=== PATIENT | female | born 1960 | race Caucasian/White ===

== ENCOUNTER 2017-05-01 09:24 | Outpatient (CLI) | payer MEDICARE, MEDICAID ==
--- NOTE | 2017-05-01 12:41 | RAD ---
FOUR VIEWS LUMBAR SPINE SERIES: CLINICAL HISTORY: Lumbar radiculopathy. FINDINGS: There is rotation of the lateral view, which does limit assessment of alignment. There is grade 1-2 spondylolisthesis at L4-L5. Trace retrolisthesis is suggested at the T12-L1 level. No compression f racture. There is multilevel mild endplate degenerative change and mild disk space narrowing through out the lumbar spine. There is moderate disk space narrowing at the lumbosacral junction. Multileve l facet osteoarthritis is present. There is incidental note of atherosclerosis. Surgical clips are seen overlying the right pelvis. There is left convexity curvature of the lumbar spine. Translation al motion of significance not identified by flexion and extension positioning. IMPRESSION: 1. Multilevel degenerative change of the lumbar spine. There is grade 1-2 spondylolisthesis at the L4-L5 level. Trace retrolisthesis is suggested at the T12-L1 level. 2. With flexion/extension positioning, no obvious abnormal translational motion is seen. POS: HARPAL
--- NOTE | 2017-05-01 14:30 | MRI ---
MRI LUMBAR SPINE WITHOUT CONTRAST: Date: 05/01/17 Multiplanar, multisequential imaging of lumbar spine obtained. HISTORY: Low back pain. Bilateral leg pain. COMPARISON: MRI lumbar spine dated 09/02/15. FINDINGS: The lumbar vertebra maintain height. There is anterior wedging of the T10 and T11 vertebra, which mandeep ears stable from the prior study. Anterior osteophytes are seen. Mild anterolisthesis of L4-5 and L5- S1 again noted. No evidence of vertebral body edema. At T11-T12, mild disc bulge is seen, similar to the prior study. This flattens the thecal sac and res ults in mild central canal stenosis, unchanged from prior exam. At T12-L1, mild disc bulge and facet hypertroph result in mild central canal stenosis, unchanged. At L1-2, there is a broad based disc bulge. There is an annular tear with a small focal protrusion pa racentrally on the right, which is more prominent than on the prior study. This flattens the anterior thecal sac resulting in mild central canal stenosis. At L2-3, mild disc bulge flattens the thecal sac. Facet hypertrophy. Mild central canal stenosis, whi ch is exaggerated on the posterior epidural lipomatosis. At L3-4, broad based disc bulge flattens the thecal sac. Facet hypertrophy. Mild central canal steno sis. At L4-5, there is mild anterolisthesis with a broad based disc bulge which has a similar appearance t o the prior study. Bilateral foraminal stenosis due to disc bulge and facet hypertrophy. At L5-S1, there is Grade I spondylolisthesis with broad based disc bulge compressing the thecal sac. Bilateral foraminal encroachment is seen, more prominent on the right due asymmetric disc bulge into the right foramina. Findings at these levels do not appear significantly changed from the prior study. IMPRESSION: Mild anterolisthesis with diffuse disc bulge again seen at L4-5 and at L5-S1 levels. These findings d o not appear significantly changed from the exam of 09/02/15. POS: TPC
== END 2017-05-01 09:25 | disposition home or self-care (01) ==
LOC: SCSMRI 09:24
PROVIDERS: ATTEND Neurological Surgery
DX: M47.26 Other spondylosis with radiculopathy, lumbar region (principal); M51.16 Intervertebral disc disorders with radiculopathy, lumbar region; M43.16 Spondylolisthesis, lumbar region
CPT/HCPCS: 72120; 72148

== ENCOUNTER 2017-05-15 12:45 | Outpatient (CLI) | payer MEDICARE, MEDICAID ==
--- NOTE | 2017-05-15 13:27 | RAD ---
TWO VIEWS OF THE CHEST: Comparison: 10-05-15 History: Dyspnea. FINDINGS: Two views of the chest show normal sized cardiomediastinal silhouette. There is no evidence of consol idation, mass, or pleural effusion. Degenerative changes are seen in the spine. IMPRESSION: No evidence of acute cardiopulmonary disease. POS: H
== END 2017-05-15 12:46 | disposition home or self-care (01) ==
LOC: RAD 12:45
PROVIDERS: ATTEND Internal Medicine Pulmonary Disease
DX: R06.00 Dyspnea, unspecified (principal)
CPT/HCPCS: 71046

== ENCOUNTER 2017-06-05 14:00 | Inpatient (IN) | payer MEDICARE, MEDICAID ==
[2017-06-11] MEDS ORDERED: Sodium Chloride 0.9% 30 ML ONE (06:17)
[2017-06-11] MEDS ORDERED: Thrombin 5000 UNITS/5 ML VIAL ONE (06:17)
[2017-06-11] MEDS ORDERED: Bupivacaine HCl 0.5%/Epinephrine 1:200,000/PF 30 ml Vial ONE (06:17)
[2017-06-11] MEDS ORDERED: CEFAZOLIN/Water 2 GM/20 ML SYRINGE ONE (06:31)
[2017-06-11] MEDS ORDERED: Midazolam HCl 2 mg/2 ml Vial ONE (07:00)
[2017-06-11] MEDS ORDERED: HYDROmorphone 0.5 MG/0.5 ML SYRINGE ONE ×4 (07:00→13:15)
[2017-06-11] MEDS ORDERED: Rocuronium Bromide 50 MG/5 ML VIAL ONE (11:12)
[2017-06-11] MEDS ORDERED: Ketorolac Tromethamine 30 MG/ML VIAL IVP PRN (12:49)
[2017-06-11] MEDS ORDERED: Promethazine HCl 25 MG/ML VIAL SLOW IVP PRN ×2 (12:49→18:24)
[2017-06-11] MEDS ORDERED: Ondansetron HCl/PF 4 MG/2 ML Vial IVP PRN ×2 (12:49→13:00)
[2017-06-11] MEDS ORDERED: Promethazine HCl 25 MG/ML VIAL IM PRN (12:49)
[2017-06-11] MEDS ORDERED: Labetalol HCl 100 MG/20 ML VIAL ONE (12:53)
[2017-06-11] MEDS ORDERED: Zolpidem Tartrate 5 MG TAB PO PRN (13:00)
[2017-06-11] MEDS ORDERED: diphenhydrAMINE 50 MG/ML VIAL IVP PRN (13:00)
[2017-06-11] MEDS ORDERED: Cyclobenzaprine 10 MG TAB PO PRN (13:00)
[2017-06-11] MEDS ORDERED: Acetaminophen 650 MG Suppository PR PRN (13:00)
[2017-06-11] MEDS ORDERED: Bisacodyl 10 MG SUPP PR PRN (13:00)
[2017-06-11] MEDS ORDERED: Acetaminophen/Codeine 30-300mg Tablet PO PRN (13:00)
[2017-06-11] MEDS ORDERED: tiZANidine HCl 4 MG TAB PO PRN (13:00)
[2017-06-11] MEDS ORDERED: Mag-Al 1200 mg/1200 mg/30 ML UDCUP PO PRN (13:00)
[2017-06-11] MEDS ORDERED: Morphine 5 MG/ML SYRINGE SLOW IVP PRN (13:00)
[2017-06-11] MEDS ORDERED: Milk Of Magnesia 30 ML UDCUP PO PRN (13:00)
[2017-06-11] MEDS ORDERED: diphenhydrAMINE 25 MG CAP PO PRN (13:00)
[2017-06-11] MEDS ORDERED: Promethazine HCl 25 MG/ML VIAL ONE (13:06)
--- NOTE | 2017-06-11 13:31 | OP ---
DATE OF PROCEDURE: 06/11/2017 SURGEON: Fina Bradley M.D. PRINT SUPPORT SPECIALIST: None. PREOPERATIVE INDICATION: Treat pain, prevent neurological deterioration. PREOPERATIVE DIAGNOSES: Multilevel lumbar stenosis, lumbar spondylolisthesis, unstable. POSTOPERATIVE DIAGNOSES: Multilevel lumbar stenosis, lumbar spondylolisthesis, unstable. OPERATIVE PROCEDURE: Decompressive laminectomy, medial facetectomy, foraminotomy L3-L4, L4-L5, L5-S1 , transforaminal lumbar interbody arthrodesis L4-L5, L5-S1, pedicle screw and blaze instrumentation L4- L5, L5-S1 posterolateral arthrodesis L4-5, L5-S1. Local morselized autograft, morselized allograft. PREOPERATIVE MEDICATION: Ancef 2 grams IV. DRAIN NUMBER: Zero. DRAIN TYPE: None. OPERATIVE DICTATION: The patient was brought to the operating room. General endotracheal anesthesia was induced. The patient was positioned prone on the Patrick frame with appropriate padding for the chest and hips. A lateral fluoro radiograph was used to plan our incision. The lumbar skin was angelia rilely prepped and draped. We opened with a 10 blade knife and controlled bleeding with bipolar and monopolar cautery. We used monopolar cautery to dissect through subcutaneous tissues to the thoracod orsal fascia. We incised the fascia in the midline and reflected the paraspinal muscles off the spin ous process and lamina of L3, L4, L5, and the superior portion of the sacrum. A lateral fluoro radio graph confirmed the levels upon which we were operating. We then carried our dissection over the fac et joints lateral to the facet joints at L3-L4, L4-L5, and L5-S1 to identify the transverse processes of L4, L5, and S1 bilaterally and the sacral ala bilaterally. We irrigated copiously with bacitraci n irrigation and placed a self-retaining retractor. Using Adson and Kerrison rongeurs we fashioned a laminectomy from L3 to the sacrum. We widened our laminectomy defect until we were flush with the p edicles at L4, L5, and S1. We performed foraminotomies over the exiting L3, L4, L5, and S1 nerve annita ts bilaterally until a ball probe could pass through the lateral recess and out the foramen without i mpingement. We turned our attention to arthrodesis. We drilled out the facet joints at L4-5 and L5-S1 on the right side. We accessed the intervertebral space at L4-5 and L5-S1 through the foramen from the right and we removed disk contents using curette s and rongeurs. We used a bone rasp to prepare the endplates for grafting and then measured the heig ht of the interspace to 11 mm at L4-5 and 9 mm at L5-S1. The appropriately sized PEEK intervertebral grafts were brought into the field. The laminectomy bone was cleaned of all its soft tissue attachm ents carefully and morselized on the back table and then added to demineralized bone matrix as our fu kendrick substrate. This substrate was placed in the PEEK grafts and the grafts were advanced into the i nterspaces under radiographic guidance to the appropriate depth. We turned our attention to pedicle screw instrumentation. Using bony anatomic landmarks, palpation of the medial portion of the pedicles, and a lateral fluoro radiograph as our guide, we chose entry points for pedicle screws at L4, L5, and S1 bilaterally. We drilled our entry points and then used a bone awl to advance entry points through the pedicles into t he vertebral bodies. We tapped each trajectory. Using a ball probe we found that each trajectory wa s completely encased in bone. We placed 6.5 mm diameter pedicle screws at L4, L5, and S1 bilaterally . We irrigated copiously with bacitracin irrigation. We generated the 360 degree image set that our isocentric C-arm confirming adequate positioning of our pedicle screw instrumentation. We irrigated once again with bacitracin irrigation. We decorticated the transverse processes of L4-L5 and the sa cral ala bilaterally. Over the decorticated bone, we the left our demineralized bone matrix and mors elized autograft as posterolateral fusion substrate. We then brought rods into the screw heads. We tightened caps over the rods. Before final tightening, we used gentle compressive forces across each interspace to ensure that the interbody device had remained in place. Using a [id number] mechanism, we ensured adequate tightness of the caps. We irrigated the center of the wound once aga in with bacitracin irrigation. We applied vancomycin powder in the wound. We closed the wound in an atomic layers. We applied a sterile dressing. This was a clean case, no contamination.
[2017-06-11 14:18] VITALS: BMI 31.4
[2017-06-11] MEDS: Sodium Chloride 0.9% 1,000 ML IV SCH ×2 (14:41→23:18)
[2017-06-11] MEDS: CEFAZOLIN/Water 2 GM/20 ML SYRINGE SLOW IVP SCH ×2 (14:44→23:19)
[2017-06-11] MEDS: Scopolamine 1.5 mg/72 hour Patch TD SCH (14:46)
[2017-06-11] MEDS ORDERED: Glycopyrrolate 0.2 MG/ML 5 ML SYRINGE ONE (15:32)
[2017-06-11] MEDS ORDERED: Propofol 200 MG/20 ML VIAL ONE (15:32)
[2017-06-11] MEDS ORDERED: Lidocaine 1% PF 5 ML VIAL ONE (15:32)
[2017-06-11] MEDS ORDERED: Labetalol 100 MG/20 ML MDV ONE (15:32)
[2017-06-11] MEDS ORDERED: Dexamethasone 20 MG/5 ML VIAL ONE (15:32)
[2017-06-11] MEDS ORDERED: Metoclopramide HCl 10 MG/2 ML VIAL ONE (15:32)
[2017-06-11] MEDS ORDERED: PHENYLEPHRINE-NS 100 MCG/ML 10 ML SYRINGE ONE (15:32)
[2017-06-11] MEDS ORDERED: Ondansetron HCl/PF 4 MG/2 ML Vial ONE (15:32)
[2017-06-11] MEDS ORDERED: PROVENTIL INHALER 6.7 G (200 INHALATIONS) INH PRN (19:31)
[2017-06-11] MEDS ORDERED: CRANBERRY FRUIT EXTRACT PO SCH (21:00)
[2017-06-11] MEDS: Atorvastatin Calcium 20 MG TAB PO SCH (21:15)
[2017-06-11] MEDS: diphenhydrAMINE 25 MG CAP PO SCH (21:16)
[2017-06-11] MEDS: Docusate 100 MG CAP PO SCH (21:16)
[2017-06-11] MEDS: Lisinopril 2.5 MG TAB PO SCH (21:16)
[2017-06-11] MEDS: Naproxen 500 MG TAB PO SCH (21:17)
[2017-06-11] MEDS: Pregabalin 50 MG CAP PO SCH (21:17)
[2017-06-11] MEDS: Acetaminophen 325 MG TAB PO PRN (21:18)
[2017-06-11] MEDS: Albuterol Sulfate 2.5 mg/0.5 ml Neb NEB SCH (21:56)
[2017-06-11] MEDS: traMADol HCl 50 MG TAB PO PRN (23:32)
[2017-06-11] MEDS: ALPRAZolam 0.5 MG TAB PO PRN (23:32)
[2017-06-12] MEDS: Acetaminophen 325 MG TAB PO PRN (04:23)
[2017-06-12] MEDS: CEFAZOLIN/Water 2 GM/20 ML SYRINGE SLOW IVP SCH ×3 (06:05→20:43)
[2017-06-12 06:12] LABS: #Lymphocytes 2.1 thou/uL (1.20-3.40); #Monocytes 0.6 thou/uL (0.11-0.59); #Neutrophils 5.3 thou/uL (1.40-6.50); %Basophils 0.2 % (0.0-1.0); %Eosinophils 0.1 % (0.0-10.0); %Monocytes 7.7 % (0.0-10.0); Hemoglobin 9.8 g/dL (12.0-16.0); Mean Corpuscular HGB CONC 33.8 g/dL (32.0-36.0); Mean Corpuscular Hemoglobin 34.3 pg (27.0-31.0); Mean Platelet Volume 8.3 fL (7.4-10.4); Platelet Count 302 thou/uL (130-400); RBC Distribution Width 11.1 % (11.5-14.5); Red Blood Cell (RBC) Count 2.87 mill/uL (4.20-5.40); White Blood Cell (WBC) Count 8.1 thou/uL (4.8-10.8)
[2017-06-12] MEDS: Albuterol Sulfate 2.5 mg/0.5 ml Neb NEB SCH ×3 (06:25→22:55)
[2017-06-12] MEDS: Mometasone/Formoterol 120 PUFF INHALER INH SCH ×2 (06:28→19:37)
--- NOTE | 2017-06-12 07:47 | PRG ---
DATE OF SERVICE: 06/12/2017 Ms. Nassar is 1 day out from decompression fusion lumbar spine. She complains of right thigh pain an d some bruising on her chest. Overnight, her T-max was 100.9 degrees Fahrenheit. I do not find any new neurological deficits in the lower extremities. She has good sensation and motor strength throug hout. There is tenderness over the anterior iliac crest and upper lateral quadriceps muscle and down the anterior portion of the thigh on the right. This is focal tenderness and exacerbated by deep pa lpation. Her incision has some serosanguineous drainage mixed with some of the antibiotic irrigation , it is not frida blood and she is having no headaches. My plan today is that Ms. Nassar is seen by our colleagues in Internal Medicine group. She has lung disease and coronary artery disease. We will continue to address her bandage while it is draining, I will continue antibiotic therapy IV until there is no drainage at all. I will ask physical therapy to start moving her around. The thigh pain and chest pain is from positioning on the operative table over the hip pads and chest pads. The area of the pain in the anterior thigh is not in any of the d ermatomes for which we decompressed the nerves and therefore, I think is unrelated to the operative p ortion of the procedure, but rather related to positioning. Physical therapy should start moving her around, she needs to ambulate at least 5 times a day. Voldy ne would be helpful in clearing out her lungs. She is going to need some significant cheerleading to mobilize. She is quite anxious about things, in general.
[2017-06-12] MEDS ORDERED: CEFAZOLIN/Water 2 GM/20 ML SYRINGE SLOW IVP SCH (08:30)
[2017-06-12] MEDS ORDERED: BIFIDOBACTERIUM PO SCH (09:00)
[2017-06-12] MEDS ORDERED: Nitroglycerin 0.2mg/Hour PATCH TOP SCH (09:00)
[2017-06-12] MEDS ORDERED: Artificial Tear Sol 15 ML BOT EA EYE PRN (09:22)
[2017-06-12] MEDS ORDERED: Loperamide HCl 2 MG CAP PO PRN (09:22)
[2017-06-12] MEDS ORDERED: hydrALAZINE 20 MG/ML VIAL SLOW IVP PRN (09:22)
[2017-06-12] MEDS ORDERED: Eucerin (Mineral Oil/Petrolatum,White) 30 gm Jar TOP PRN (09:22)
[2017-06-12] MEDS ORDERED: Chloraseptic Spray 180 ml Bottle PO PRN (09:22)
[2017-06-12] MEDS ORDERED: Diabetic Tussin 200 MG/10 ML UDCUP PO PRN (09:22)
[2017-06-12] MEDS: Cyanocobalamin (Vitamin B-12) 1,000 MCG TAB PO SCH (09:58)
[2017-06-12] MEDS: Famotidine 20 MG TAB PO SCH (09:58)
[2017-06-12] MEDS: Magnesium Oxide 250 MG TAB PO SCH (09:58)
[2017-06-12] MEDS: Oxybutynin ER 5 MG TAB PO SCH (09:59)
[2017-06-12] MEDS: Pregabalin 50 MG CAP PO SCH ×3 (10:07→20:43)
[2017-06-12] MEDS: Metoprolol Tartrate 25 MG TAB PO SCH (10:08)
[2017-06-12] MEDS: Multivitamin W/ Minerals 1 TAB PO SCH (10:11)
[2017-06-12] MEDS: Calcium Carbonate + Vit D 1 TAB PO SCH (10:11)
--- NOTE | 2017-06-12 10:20 | PDOC.PN ---
- Subjective Encounter Start Date: 06/12/17 Encounter Start Time: 09:00 -: old records requested/rev Patient seen and examined. No new complaints. No overnight events pt has right thigh to knee pain, sleeps on right side, surgical site with dressing has tachycardia and low grade fever - Objective MAR Reviewed: Yes Vital Signs & Weight: Vital Signs (12 hours) Temp Pulse Resp BP Pulse Ox 06/12/17 07:39 98.5 F 114 H 16 120/62 94 L 06/12/17 06:41 98.2 F 102 H 06/12/17 06:25 125 H 20 93 L 06/12/17 04:00 100.9 F H 109 H 22 H 122/66 98 06/12/17 00:00 98.6 F 124 H 22 H 145/87 H 94 L Weight Admit Weight 168 lb Weight 171 lb 8 oz I&O: 06/11/17 06/12/17 06/13/17 06:59 06:59 06:59 Intake Total 888 Balance 888 Result Diagrams: 06/12/17 05:18 Radiology Reviewed by me: Yes Phys Exam - Physical Examination Constitutional: NAD HEENT: PERRLA, moist MMs, sclera anicteric Neck: no JVD, supple Respiratory: no wheezing, no rales, no rhonchi Cardiovascular: RRR, no significant murmur, no rub Gastrointestinal: soft, non-tender, no distention, positive bowel sounds Musculoskeletal: no edema, pulses present surigcal site with dressing on back Neurological: non-focal, normal sensation Lymphatic: no nodes Psychiatric: normal affect, A&O x 3 Skin: no rash, normal turgor Dx/Plan (1) Status post lumbar laminectomy Code(s): Z98.890 - OTHER SPECIFIED POSTPROCEDURAL STATES Status: Acute (2) Anxiety and depression Code(s): F41.8 - OTHER SPECIFIED ANXIETY DISORDERS Status: Chronic (3) Asthma Code(s): J45.909 - UNSPECIFIED ASTHMA, UNCOMPLICATED Status: Chronic (4) CAD (coronary artery disease) Code(s): I25.10 - ATHSCL HEART DISEASE OF [place] CORONARY ARTERY W/O ANG PCTRS Status: Chronic (5) Dyslipidemia Code(s): E78.5 - HYPERLIPIDEMIA, UNSPECIFIED Status: Chronic (6) GERD (gastroesophageal reflux disease) Code(s): K21.9 - GASTRO-ESOPHAGEAL REFLUX DISEASE WITHOUT ESOPHAGITIS Status: Chronic (7) Hypertension Code(s): I10 - ESSENTIAL (PRIMARY) HYPERTENSION Status: Chronic (8) Macrocytic anemia Code(s): D53.9 - NUTRITIONAL ANEMIA, UNSPECIFIED Status: Chronic (9) Obesity (BMI 30.0-34.9) Code(s): E66.9 - OBESITY, UNSPECIFIED Status: Chronic (10) RADHA on CPAP Code(s): G47.33 - OBSTRUCTIVE SLEEP APNEA (ADULT) (PEDIATRIC); Z99.89 - DEPENDENCE ON OTHER ENABLING MACHINES AND DEVICES Status: Chronic - Plan cont current plan of care, PT/OT, DVT proph w/SCDs * medication reviewed as below * symptomatic treatment * home medication restarted * albuterol q 4 hourly PRB * send UA and urine culture * continue PT * pain control. Review of Systems - Review of Systems Constitutional: fever. negative: chills, sweats, weakness, malaise, other Eyes: negative: Pain, Vision Change, Conjunctivae Inflammation, Eyelid Inflammation, Redness, Other ENT: negative: Ear Pain, Ear Discharge, Nose Pain, Nose Discharge, Nose Congestion, Mouth Pain, Mouth Swelling, Throat Pain, Throat Swelling, Other Respiratory: Cough. negative: Dry, Shortness of Breath, Hemoptysis, SOB with Excertion, Pleuritic Pain, Sputum, Wheezing Cardiovascular: negative: chest pain, palpitations, orthopnea, paroxysmal nocturnal dyspnea, edema, light headedness, other Gastrointestinal: negative: Nausea, Vomiting, Abdominal Pain, Diarrhea, Constipation, Melena, Hematochezia, Other Genitourinary: negative: Dysuria, Frequency, Incontinence, Hematuria, Retention , Other Musculoskeletal: Back Pain. negative: Neck Pain, Shoulder Pain, Arm Pain, Hand Pain, Leg Pain, Foot Pain, Other - Medications/Allergies Allergies/Adverse Reactions: Allergies Allergy/AdvReac Type Severity Reaction Status Date / Time No Known Allergies Allergy Verified 06/11/17 14:30 Medications: Current Medications Acetaminophen (Tylenol) 650 mg PO Q4H PRN PRN Reason: Headache/Fever or Pain Last Admin: 06/12/17 04:23 Dose: 650 mg Acetaminophen (Tylenol) 650 mg NE Q4H PRN PRN Reason: Headache/Fever or Pain Acetaminophen/Codeine Phosphate (Tylenol #3) 2 tab PO Q3H PRN PRN Reason: Moderate Pain (4-6) Al Hydroxide/Mg Hydroxide (Maalox) 30 ml PO Q4H PRN PRN Reason: Indigestion Albuterol Sulfate (Proventil Hfa) 1 puff INH Q4H PRN PRN Reason: SOB &/or Wheezing Albuterol Sulfate (Ventolin) 2.5 mg NEB [id number] [facility] Last Admin: 06/12/17 06:25 Dose: 2.5 mg Alprazolam (Xanax) 0.5 mg PO BID PRN PRN Reason: Anxiety Last Admin: 06/11/17 23:32 Dose: 0.5 mg Artificial Tears (Tears Renewed 15ml Bottle) 0 drop EA EYE PRN PRN PRN Reason: Dry Eyes Atorvastatin Calcium (Lipitor) 20 mg PO [facility] Last Admin: 06/11/17 21:15 Dose: 20 mg Bisacodyl (Dulcolax) 10 mg NE Q12H PRN PRN Reason: Constipation Calcium/Vitamin D (Caltrate 600 + Vit D) 1 tab PO DAILY [facility] Last Admin: 06/12/17 10:11 Dose: Not Given Cefazolin Sodium (Ancef) 2 gm SLOW IVP Q8H [facility] Cyanocobalamin (Vitamin B-12) 1,000 mcg PO DAILY [facility] Last Admin: 06/12/17 09:58 Dose: 1,000 mcg Cyclobenzaprine HCl (Flexeril) 10 mg PO Q8H PRN PRN Reason: Muscle Spasm Diphenhydramine HCl (Benadryl) 25 mg IVP Q6H PRN PRN Reason: Itching Diphenhydramine HCl (Benadryl) 25 mg PO Q6H PRN PRN Reason: Itching Diphenhydramine HCl (Benadryl) 25 mg PO [facility] Last Admin: 06/11/17 21:16 Dose: 25 mg Docusate Sodium (Colace) 200 mg PO HS [facility] Last Admin: 06/11/17 21:16 Dose: 200 mg [facility]cid) [facility] Last Admin: 06/12/17 09:58 Dose: 20 mg Guaifenesin (Robitussin Sf) 200 mg PO Q4H PRN PRN Reason: Cough Hydralazine HCl (Apresoline) 10 mg SLOW IVP Q4H PRN PRN Reason: Systolic BP > 180 Sodium Chloride (Normal Saline 0.9%) 1,000 mls @ 75 mls/hr IV .[id number] [facility] Last Admin: 06/11/17 23:18 Dose: 1,000 mls Iron/Minerals/Multivitamins (Theragran M) 1 tab PO DAILY [facility] Last Admin: 06/12/17 10:11 Dose: Not Given Isosorbide Mononitrate (Imdur Er) [facility] Last Admin: 06/12/17 09:59 Dose: 90 mg Lisinopril (Zestril) 2.5 mg PO HS [facility] Last Admin: 06/11/17 21:16 Dose: 2.5 mg Loperamide HCl (Imodium) 2 mg PO PRN PRN PRN Reason: Diarrhea/Loose Stools Magnesium Hydroxide (Milk Of Magnesium) 30 ml PO Q12H PRN PRN Reason: Constipation Magnesium Oxide (Magnesium Oxide) 250 mg PO DAILY [facility] Last Admin: 06/12/17 09:58 Dose: 250 mg Metoprolol Tartrate (Lopressor) 50 mg PO QAM [facility] Last Admin: 06/12/17 10:08 Dose: 50 mg Mineral Oil/White Petrolatum (Eucerin Cream) 0 gm TOP BIDPRN PRN PRN Reason: Dry Skin Mometasone Furoate/Formoterol Fumar (Dulera 100 Mcg/5 Mcg Inhaler) 2 puff INH BID-RT [facility] Last Admin: 06/12/17 06:28 Dose: 2 puff Morphine Sulfate (Morphine) 4 mg SLOW IVP Q1H PRN PRN Reason: Severe Breakthrough Pain Naproxen (Naprosyn) 250 mg PO HS [facility] Last Admin: 06/11/17 21:17 Dose: 250 mg Nitroglycerin (Nitro-Dur Patch) 0.2 mg TOP DAILY [facility] Ondansetron HCl (Zofran) 4 mg IVP DAILYPRN PRN PRN Reason: Nausea Last Admin: 06/11/17 14:49 Dose: 4 mg Ondansetron HCl (Zofran) 4 mg SLOW IVP Q6H PRN PRN Reason: Nausea/Vomiting Oxybutynin Chloride (Ditropan Xl) 10 mg PO DAILY [facility] Last Admin: 02/28/18 09:59 Dose: 10 mg Pantoprazole Sodium (Protonix) 40 mg PO 2100 [facility] Last Admin: 06/11/17 21:17 Dose: 40 mg Phenol (Chloraseptic Cypress 180 Ml Bot) 0 ml PO PRN PRN PRN Reason: Sore Throat Pregabalin (Lyrica) 50 mg PO TID [facility] Last Admin: 06/12/17 10:07 Dose: Not Given Promethazine HCl (Phenergan) 12.5 mg SLOW IVP Q8H PRN PRN Reason: Nausea/Vomiting Ranolazine (Ranexa) 500 mg PO BID [facility] Last Admin: 06/12/17 09:58 Dose: 500 mg Scopolamine (Transderm Scop) 1.5 mg TD Q3D [facility] Last Admin: 06/11/17 14:46 Dose: 1.5 mg Sodium Chloride (Flush - Normal Saline) 10 ml IVF PRN PRN PRN Reason: Saline Flush Tizanidine HCl (Zanaflex) 4 mg PO Q6H PRN PRN Reason: Muscle Spasm Tramadol HCl (Ultram) 50 mg PO Q6H PRN PRN Reason: Mild Pain (1-3) Last Admin: 06/11/17 23:32 Dose: 50 mg Zolpidem Tartrate (Ambien) 5 mg PO HSPRN PRN PRN Reason: Insomnia History of Present Illnes - History of Present Illness Reason for Visit: lumbar laminectomy History of Present Illness: admitted for lumbar laminectomy consulted for medical management feels sore throat and some wheezing - Past Medical History Cardiac: CAD, HTN, Hyperlipidemia Pulmonary: Asthma Gastrointestinal: GERD Heme/Onc: Anemia NOS Psych: Anxiety, Depression Musculoskeletal: Chronic low back pain - Past Surgical History Past Surgical History: Appendectomy, (lumpectomy, cardiac cath) - Past Family History Family History: None - Past Social History Smoke: No Alcohol: None Drugs: None Lives: With Family Domestic Violence: Negative
[2017-06-12 11:44] LABS: Bilirubin Negative (Negative); Blood, Urine Negative (Negative); Clarity CLEAR (Clear); Glucose, Urine (Dipstick) Negative (Negative); Leukocyte Negative (Negative); Nitrite Negative (Negative); Protein, Urine (Dipstick) Negative (Neg-Trace); Specific Gravity, Urine 1.009 (1.002-1.036); Urobilinogen 0.2 mg/dL (0.2-1.0)
[2017-06-12 11:45] LABS: Bacteria/HPF None Seen HPF (None Seen); Hyaline Casts/LPF 0-3 HYALINE CAST LPF (0-3 Hyaline); RBC/HPF 0-3 HPF (0-3); Squamous Epithelial None Seen HPF (0-3); WBC/HPF 0-3 HPF (0-3)
[2017-06-12] MEDS: ALPRAZolam 0.5 MG TAB PO PRN (11:50)
[2017-06-12] MEDS: traMADol HCl 50 MG TAB PO PRN (11:50)
[2017-06-12] MEDS: Ondansetron HCl/PF 4 MG/2 ML Vial SLOW IVP PRN (12:01)
[2017-06-12] MEDS: Albuterol Sulfate 2.5 mg/3 ml Neb IPPB PRN ×2 (13:57→22:53)
[2017-06-12] MEDS: Sodium Chloride 0.9% 1,000 ML IV SCH (16:23)
[2017-06-12] MEDS: diphenhydrAMINE 25 MG CAP PO SCH (20:43)
[2017-06-12] MEDS: Lisinopril 2.5 MG TAB PO SCH (20:44)
[2017-06-12] MEDS: Docusate 100 MG CAP PO SCH (20:44)
[2017-06-12] MEDS: Atorvastatin Calcium 20 MG TAB PO SCH (20:44)
[2017-06-12] MEDS: Naproxen 500 MG TAB PO SCH (20:48)
[2017-06-13] MEDS: Sodium Chloride 0.9% 1,000 ML IV SCH ×2 (04:01→19:00)
[2017-06-13] MEDS: CEFAZOLIN/Water 2 GM/20 ML SYRINGE SLOW IVP SCH ×3 (04:02→21:06)
[2017-06-13] MEDS: Ondansetron HCl/PF 4 MG/2 ML Vial SLOW IVP PRN (04:04)
[2017-06-13] MEDS ORDERED: Ondansetron ODT 8 MG TAB SL PRN (07:04)
--- NOTE | 2017-06-13 07:15 | PRG ---
DATE OF SERVICE: 06/13/2017 Ms. Nassar is 2 days out from decompression fusion lumbar spine. Yesterday, she was able to get up m ultiple times to get to the bathroom and back. She wears a brace when she is up and moving. She had some continued drainage which seems to be slowing, according to the patient. The pain from position ing on the right thigh is easing off quite a bit. It is not gone, but it is much better than it was. Physical therapy did not get her up in the hallway yet. I do not find any new deficits on neurological examination. I am not surprised to see the pain getti ng better already as it was from positioning on the Patrick frame. Ms. Nassar needs aggressive physical therapy. If she does not look safe for activities of daily edmar ng at home today we can make a transfer to inpatient rehabilitation tomorrow.
[2017-06-13] MEDS: Albuterol Sulfate 2.5 mg/3 ml Neb IPPB PRN ×2 (09:21→15:24)
[2017-06-13] MEDS: Pregabalin 50 MG CAP PO SCH ×3 (09:35→21:12)
[2017-06-13] MEDS: Cyanocobalamin (Vitamin B-12) 1,000 MCG TAB PO SCH (09:36)
[2017-06-13] MEDS: Metoprolol Tartrate 25 MG TAB PO SCH (09:36)
[2017-06-13] MEDS: Famotidine 20 MG TAB PO SCH (09:37)
[2017-06-13] MEDS: Mometasone/Formoterol 120 PUFF INHALER INH SCH ×2 (09:38→19:26)
[2017-06-13] MEDS: Oxybutynin ER 5 MG TAB PO SCH (09:41)
[2017-06-13] MEDS: Calcium Carbonate + Vit D 1 TAB PO SCH (09:42)
[2017-06-13] MEDS: Multivitamin W/ Minerals 1 TAB PO SCH (09:42)
--- NOTE | 2017-06-13 09:47 | PDOC.PN ---
- Subjective Encounter Start Date: 06/13/17 Encounter Start Time: 08:20 pt has nausea, no vomiting, feels weak, and feels like she will need rehab - Objective MAR Reviewed: Yes Vital Signs & Weight: Vital Signs (12 hours) Temp Pulse Resp BP Pulse Ox 06/13/17 09:38 105 H 20 95 06/13/17 09:21 105 H 20 95 06/13/17 08:00 98.4 F 107 H 16 94 L 06/13/17 07:24 98.4 F 107 H 16 134/82 94 L 06/12/17 22:55 111 H 18 95 Weight Admit Weight 168 lb Weight 171 lb 8 oz I&O: 06/12/17 06/13/17 06/14/17 06:59 06:59 06:59 Intake Total 888 3584 180 Balance 888 3584 180 Result Diagrams: 06/12/17 05:18 Phys Exam - Physical Examination Constitutional: NAD HEENT: PERRLA, moist MMs, sclera anicteric Neck: no JVD, supple Respiratory: no wheezing, no rales, no rhonchi Cardiovascular: RRR, no significant murmur, no rub Gastrointestinal: soft, non-tender, no distention, positive bowel sounds Musculoskeletal: no edema, pulses present Neurological: non-focal, normal sensation, moves all 4 limbs Psychiatric: normal affect, A&O x 3 Skin: no rash, normal turgor Dx/Plan (1) Status post lumbar laminectomy Code(s): Z98.890 - OTHER SPECIFIED POSTPROCEDURAL STATES Status: Acute (2) Anxiety and depression Code(s): F41.8 - OTHER SPECIFIED ANXIETY DISORDERS Status: Chronic (3) Asthma Code(s): J45.909 - UNSPECIFIED ASTHMA, UNCOMPLICATED Status: Chronic (4) CAD (coronary artery disease) Code(s): I25.10 - ATHSCL HEART DISEASE OF [place] CORONARY ARTERY W/O ANG PCTRS Status: Chronic (5) Dyslipidemia Code(s): E78.5 - HYPERLIPIDEMIA, UNSPECIFIED Status: Chronic (6) GERD (gastroesophageal reflux disease) Code(s): K21.9 - GASTRO-ESOPHAGEAL REFLUX DISEASE WITHOUT ESOPHAGITIS Status: Chronic (7) Hypertension Code(s): I10 - ESSENTIAL (PRIMARY) HYPERTENSION Status: Chronic (8) Macrocytic anemia Code(s): D53.9 - NUTRITIONAL ANEMIA, UNSPECIFIED Status: Chronic (9) Obesity (BMI 30.0-34.9) Code(s): E66.9 - OBESITY, UNSPECIFIED Status: Chronic (10) RADHA on CPAP Code(s): G47.33 - OBSTRUCTIVE SLEEP APNEA (ADULT) (PEDIATRIC); Z99.89 - DEPENDENCE ON OTHER ENABLING MACHINES AND DEVICES Status: Chronic - Plan cont current plan of care, PT/OT, social service manager * continue PT * pain controlled * medication reviewed as below * symptomatic treatment * rehab screening. Review of Systems - Review of Systems Constitutional: negative: fever, chills, sweats, weakness, malaise, other Eyes: negative: Pain, Vision Change, Conjunctivae Inflammation, Eyelid Inflammation, Redness, Other ENT: negative: Ear Pain, Ear Discharge, Nose Pain, Nose Discharge, Nose Congestion, Mouth Pain, Mouth Swelling, Throat Pain, Throat Swelling, Other Respiratory: negative: Cough, Dry, Shortness of Breath, Hemoptysis, SOB with Excertion, Pleuritic Pain, Sputum, Wheezing Cardiovascular: negative: chest pain, palpitations, orthopnea, paroxysmal nocturnal dyspnea, edema, light headedness, other Gastrointestinal: Nausea. negative: Vomiting, Abdominal Pain, Diarrhea, Constipation, Melena, Hematochezia, Other Genitourinary: negative: Dysuria, Frequency, Incontinence, Hematuria, Retention , Other Musculoskeletal: Back Pain. negative: Neck Pain, Shoulder Pain, Arm Pain, Hand Pain, Leg Pain, Foot Pain, Other - Medications/Allergies Allergies/Adverse Reactions: Allergies Allergy/AdvReac Type Severity Reaction Status Date / Time No Known Allergies Allergy Verified 06/11/17 14:30 Medications: Current Medications Acetaminophen (Tylenol) 650 mg PO Q4H PRN PRN Reason: Headache/Fever or Pain Last Admin: 06/12/17 04:23 Dose: 650 mg Acetaminophen (Tylenol) 650 mg [place] Q4H PRN PRN Reason: Headache/Fever or Pain Acetaminophen/Codeine Phosphate (Tylenol #3) 2 tab PO Q3H PRN PRN Reason: Moderate Pain (4-6) Al Hydroxide/Mg Hydroxide (Maalox) 30 ml PO Q4H PRN PRN Reason: Indigestion Albuterol Sulfate (Proventil Hfa) 1 puff INH Q4H PRN PRN Reason: SOB &/or Wheezing Albuterol Sulfate (Ventolin) 2.5 mg NEB [id number] [facility] Last Admin: 06/12/17 22:55 Dose: 2.5 mg Albuterol Sulfate (Ventolin) 2.5 mg IPPB [id number] PRN PRN Reason: Wheezing Last Admin: 06/13/17 09:21 Dose: 2.5 mg Alprazolam (Xanax) 0.5 mg PO BID PRN PRN Reason: Anxiety Last Admin: 06/12/17 11:50 Dose: 0.5 mg Artificial Tears (Tears Renewed 15ml Bottle) 0 drop EA EYE PRN PRN PRN Reason: Dry Eyes Atorvastatin Calcium (Lipitor) 20 mg PO HS [facility] Last Admin: 06/12/17 20:44 Dose: 20 mg Bisacodyl (Dulcolax) 10 mg [place] Q12H PRN PRN Reason: Constipation Calcium/Vitamin D (Caltrate 600 + Vit D) 1 tab PO DAILY [facility] Last Admin: 06/13/17 09:42 Dose: Not Given Cefazolin Sodium (Ancef) 2 gm SLOW IVP 0400,1200,2000 [facility] Last Admin: 06/13/17 04:02 Dose: 2 gm Cyanocobalamin (Vitamin B-12) 1,000 mcg PO DAILY [facility] Last Admin: 06/13/17 09:36 Dose: 1,000 mcg Cyclobenzaprine HCl (Flexeril) 10 mg PO Q8H PRN PRN Reason: Muscle Spasm Diphenhydramine HCl (Benadryl) 25 mg IVP Q6H PRN PRN Reason: Itching Diphenhydramine HCl (Benadryl) 25 mg PO Q6H PRN PRN Reason: Itching Diphenhydramine HCl (Benadryl) 25 mg PO HS [facility] Last Admin: 06/12/17 20:43 Dose: 25 mg Docusate Sodium (Colace) 200 mg PO HS [facility] Last Admin: 06/12/17 20:44 Dose: 200 mg Famotidine (Pepcid) 20 mg PO QAM [facility] Last Admin: 06/13/17 09:37 Dose: 20 mg Guaifenesin (Robitussin Sf) 200 mg PO Q4H PRN PRN Reason: Cough Hydralazine HCl (Apresoline) 10 mg SLOW IVP Q4H PRN PRN Reason: Systolic BP > 180 Sodium Chloride (Normal Saline 0.9%) 1,000 mls @ 75 mls/hr IV .[id number] [facility] Last Admin: 06/13/17 04:01 Dose: 1,000 mls Iron/Minerals/Multivitamins (Theragran M) 1 tab PO DAILY [facility] Last Admin: 06/13/17 09:42 Dose: Not Given Isosorbide [facility]it[facility] (Imdur Er) [facility] [place] Admin: 06/13/17 09:35 Dose: 90 mg Lisinopril (Zestril) 2.5 mg PO [facility] Last Admin: 06/12/17 20:44 Dose: 2.5 mg Loperamide HCl (Imodium) 2 mg PO PRN PRN PRN Reason: Diarrhea/Loose Stools Magnesium Hydroxide (Milk Of Magnesium) 30 ml PO Q12H PRN PRN Reason: Constipation Magnesium Oxide (Magnesium Oxide) 250 mg PO DAILY [facility] Last Admin: 06/12/17 09:58 Dose: 250 mg Metoprolol Tartrate (Lopressor) [facility] [place] Admin: 06/13/17 09:36 Dose: 50 mg Mineral Oil/White Petrolatum (Eucerin Cream) 0 gm TOP BIDPRN PRN PRN Reason: Dry Skin Mometasone Furoate/Formoterol Fumar (Dulera 100 Mcg/5 Mcg Inhaler) 2 puff INH BID-RT [facility] Last Admin: 06/13/17 09:38 Dose: 2 puff Morphine Sulfate (Morphine) 4 mg SLOW IVP Q1H PRN PRN Reason: Severe Breakthrough Pain Naproxen (Naprosyn) 250 mg PO [facility] Last Admin: 06/12/17 20:48 Dose: 250 mg Nitroglycerin (Nitro-Dur Patch) 0.2 mg TOP DAILY [facility] Ondansetron HCl (Zofran) 4 mg IVP DAILYPRN PRN PRN Reason: Nausea Last Admin: 06/11/17 14:49 Dose: 4 mg Ondansetron HCl (Zofran) 4 mg SLOW IVP Q6H PRN PRN Reason: Nausea/Vomiting Last Admin: 06/13/17 04:04 Dose: 4 mg Ondansetron HCl (Zofran Odt) 4 mg SL QIDPRN PRN PRN Reason: Nausea/Vomiting Oxybutynin Chloride (Ditropan Xl) 10 mg PO DAILY [facility] Last Admin: 06/13/17 09:41 Dose: 10 mg Pantoprazole Sodium (Protonix) 40 mg PO 2100 [facility] Last Admin: 06/12/17 20:44 Dose: 40 mg Phenol (Chloraseptic [place] 180 Ml Bot) 0 ml PO PRN PRN PRN Reason: Sore Throat Pregabalin (Lyrica) 50 mg PO TID [facility] Last Admin: 06/13/17 09:35 Dose: 50 mg Promethazine HCl (Phenergan) 12.5 mg SLOW IVP Q8H PRN PRN Reason: Nausea/Vomiting Ranolazine (Ranexa) 500 mg PO BID [facility] Last Admin: 06/13/17 09:37 Dose: 500 mg Scopolamine (Transderm Scop) 1.5 mg TD Q3D [facility] Last Admin: 06/11/17 14:46 Dose: 1.5 mg Sodium Chloride (Flush - Normal Saline) 10 ml IVF PRN PRN PRN Reason: Saline Flush Tizanidine HCl (Zanaflex) 4 mg PO Q6H PRN PRN Reason: Muscle Spasm Tramadol HCl (Ultram) 50 mg PO Q6H PRN PRN Reason: Mild Pain (1-3) Last Admin: 06/12/17 11:50 Dose: 50 mg Zolpidem Tartrate (Ambien) 5 mg PO HSPRN PRN PRN Reason: Insomnia Last Admin: 06/12/17 20:44 Dose: 5 mg
[2017-06-13] MEDS: Magnesium Oxide 250 MG TAB PO SCH ×2 (11:54→12:04)
[2017-06-13] MEDS: Albuterol Sulfate 2.5 mg/0.5 ml Neb NEB SCH ×3 (15:13→22:25)
[2017-06-13] MEDS ORDERED: PROVENTIL INHALER 6.7 G (200 INHALATIONS) INH PRN (16:43)
[2017-06-13] MEDS ORDERED: Albuterol Sulfate 2.5 mg/3 ml Neb NEB SCH (16:45)
[2017-06-13] MEDS ORDERED: Non-Formulary Item 1 EACH (Omeprazole [Omeprazole] 20 MG) PO SCH (21:00)
[2017-06-13] MEDS ORDERED: Lisinopril 2.5 MG TAB PO SCH (21:00)
[2017-06-13] MEDS ORDERED: PREGABALIN 50 MG PO SCH (21:00)
[2017-06-13] MEDS ORDERED: (Cranberry Fruit Extract [Cranberry] 500 MG) PO SCH (21:00)
[2017-06-13] MEDS ORDERED: Atorvastatin Calcium 20 MG TAB PO SCH (21:00)
[2017-06-13] MEDS ORDERED: Docusate Sodium 100 MG/10 ML UDCUP PO SCH (21:00)
[2017-06-13] MEDS: Naproxen 500 MG TAB PO SCH (21:07)
[2017-06-13] MEDS: Atorvastatin Calcium 20 MG TAB PO SCH (21:10)
[2017-06-13] MEDS: Lisinopril 2.5 MG TAB PO SCH (21:10)
[2017-06-13] MEDS: diphenhydrAMINE 25 MG CAP PO SCH (21:11)
[2017-06-13] MEDS: ALPRAZolam 0.5 MG TAB PO SCH (21:11)
[2017-06-13] MEDS: Docusate 100 MG CAP PO SCH (21:12)
[2017-06-14] MEDS: CEFAZOLIN/Water 2 GM/20 ML SYRINGE SLOW IVP SCH ×2 (04:55→12:05)
[2017-06-14] MEDS: Sodium Chloride 0.9% 1,000 ML IV SCH ×2 (05:02→08:31)
--- NOTE | 2017-06-14 06:59 | PRG ---
DATE OF SERVICE: 06/14/2017 Ms. Nassar is 2 days out from decompression fusion lumbar spine. She continues to have some watery d rainage from her incision. There is no evidence of infection. She has no headache. The right thigh pain she had from positioning on the operative table is much better now than it was after surgery. She is beginning to mobilize without therapy and she has been accepted to inpatient rehabilitation. On examination Ms. Nassar has no new neurological deficit. Ms. Nassar is ready for discharge. I will continue antibiotic therapy until the drainage stops. Thi s most likely watery tissue fluid in combination with some of the antibiotic irrigant left behind and perhaps some fluid generated by leaving vancomycin powder in the wound. She has no headache whatsoe theresa in the standing position and the likelihood of spinal fluid drainage is exceptionally low.
[2017-06-14] MEDS: Pregabalin 50 MG CAP PO SCH (08:26)
[2017-06-14] MEDS: Metoprolol Tartrate 25 MG TAB PO SCH (08:26)
[2017-06-14] MEDS: ALPRAZolam 0.5 MG TAB PO SCH (08:27)
[2017-06-14] MEDS: Famotidine 20 MG TAB PO SCH (08:27)
[2017-06-14] MEDS: Cyanocobalamin (Vitamin B-12) 1,000 MCG TAB PO SCH (08:28)
[2017-06-14] MEDS: Calcium Carbonate + Vit D 1 TAB PO SCH (08:29)
[2017-06-14] MEDS: Magnesium Oxide 250 MG TAB PO SCH (08:29)
[2017-06-14] MEDS: Multivitamin W/ Minerals 1 TAB PO SCH (08:30)
[2017-06-14] MEDS ORDERED: Non-Formulary Item 1 EACH (Magnesium [Magnesium] 250 MG) PO SCH (09:00)
[2017-06-14] MEDS ORDERED: Non-Formulary Item 1 EACH (Fluticasone/Vilanterol [Breo Ellipta 200-25 Mcg Inh] 1 PUFF) INH SCH (09:00)
[2017-06-14] MEDS ORDERED: (Bifidobacterium Infantis [Align] 4 MG) PO SCH (09:00)
[2017-06-14] MEDS ORDERED: [UNRECOGNIZED DRUG - OTHER] PO SCH (09:00)
[2017-06-14] MEDS ORDERED: Cyanocobalamin (Vitamin B-12) 1,000 MCG TAB PO SCH (09:00)
[2017-06-14] MEDS ORDERED: Famotidine 20 MG TAB PO SCH (09:00)
[2017-06-14] MEDS ORDERED: Nitroglycerin 0.4mg/Hour PATCH TOP SCH (09:00)
[2017-06-14] MEDS ORDERED: Non-Formulary Item 1 EACH (Multivitamin [Multi-Vitamin Daily] 1 TABLET) PO SCH (09:00)
[2017-06-14] MEDS ORDERED: Metoprolol Tartrate 50 MG TAB PO SCH (09:00)
[2017-06-14] MEDS ORDERED: CALCIUM CITRATE PO SCH (09:00)
[2017-06-14] MEDS ORDERED: VITAMIN D3 PO SCH (09:00)
[2017-06-14] MEDS: Albuterol Sulfate 2.5 mg/0.5 ml Neb NEB SCH (10:07)
[2017-06-14] MEDS: Mometasone/Formoterol 120 PUFF INHALER INH SCH (10:25)
[2017-06-14] MEDS: Oxybutynin ER 5 MG TAB PO SCH (10:50)
[2017-06-14] MEDS: Scopolamine 1.5 mg/72 hour Patch TD SCH (12:05)
[2017-06-14 12:08] VITALS: BP 149/78; TEMP 98.7
--- NOTE | 2017-06-14 13:37 | PDOC.PN ---
- Subjective Encounter Start Date: 06/14/17 Encounter Start Time: 14:00 CC: Back pain sub: pt denies any complaints - Objective Vital Signs & Weight: Vital Signs (12 hours) Temp Pulse Resp BP Pulse Ox 06/14/17 12:08 98.7 F 105 H 20 149/78 H 97 06/14/17 10:25 98 12 06/14/17 10:07 98 12 06/14/17 08:00 98.4 F 99 16 95 06/14/17 07:39 98.4 F 99 16 124/73 95 06/14/17 04:00 98.4 F 99 18 118/61 95 Weight Admit Weight 168 lb Weight 171 lb 8 oz I&O: 06/13/17 06/14/17 06/15/17 06:59 06:59 06:59 Intake Total 3584 540 180 Balance 3584 540 180 Result Diagrams: 06/12/17 05:18 Phys Exam - Physical Examination Constitutional: NAD HEENT: moist MMs Neck: no JVD Respiratory: no wheezing, no rales, no rhonchi Cardiovascular: RRR, no significant murmur, no rub Gastrointestinal: soft, non-tender, no distention Musculoskeletal: no edema Neurological: non-focal Psychiatric: normal affect Skin: no rash Dx/Plan - Plan 1) Status post lumbar laminectomy Code(s): Z98.890 - OTHER SPECIFIED POSTPROCEDURAL STATES Status: Acute (2) Anxiety and depression Code(s): F41.8 - OTHER SPECIFIED ANXIETY DISORDERS Status: Chronic (3) Asthma Code(s): J45.909 - UNSPECIFIED ASTHMA, UNCOMPLICATED Status: Chronic (4) CAD (coronary artery disease) Code(s): I25.10 - ATHSCL HEART DISEASE OF [place] CORONARY ARTERY W/O ANG PCTRS Status: Chronic (5) Dyslipidemia Code(s): E78.5 - HYPERLIPIDEMIA, UNSPECIFIED Status: Chronic (6) GERD (gastroesophageal reflux disease) Code(s): K21.9 - GASTRO-ESOPHAGEAL REFLUX DISEASE WITHOUT ESOPHAGITIS Status: Chronic (7) Hypertension Code(s): I10 - ESSENTIAL (PRIMARY) HYPERTENSION Status: Chronic (8) Macrocytic anemia Code(s): D53.9 - NUTRITIONAL ANEMIA, UNSPECIFIED Status: Chronic (9) Obesity (BMI 30.0-34.9) Code(s): E66.9 - OBESITY, UNSPECIFIED Status: Chronic (10) RADHA on CPAP Code(s): G47.33 - OBSTRUCTIVE SLEEP APNEA (ADULT) (PEDIATRIC); Z99.89 - DEPENDENCE ON OTHER ENABLING MACHINES AND DEVICES Status: Chronic - Plan ok to dc from medicine stand point of view continue ranexa continue cpap monitor bp closely D/W Surgeon wants to continue iv ancef untill drainage stops. Management per him case d/w pt & RN
== END 2017-06-14 15:30 | disposition home or self-care (01) | DRG 460 ==
LOC: SURG A 06-11 05:31 → T4-B 06-11 13:51
PROVIDERS: ADMIT Neurological Surgery; ATTEND Neurological Surgery
PROC: 0SG00AJ Fusion of Lumbar Vertebral Joint with Interbody Fusion Device, Posterior Approach, Anterior Column, Open Approach (ICD-10-PCS; principal; 2017-06-11)
PROC: 0SG30AJ Fusion of Lumbosacral Joint with Interbody Fusion Device, Posterior Approach, Anterior Column, Open Approach (ICD-10-PCS; 2017-06-11)
PROC: 01NB0ZZ Release Lumbar Nerve, Open Approach (ICD-10-PCS; 2017-06-11)
DX: M48.061 Spinal stenosis, lumbar region without neurogenic claudication (principal); D53.9 Nutritional anemia, unspecified; E78.5 Hyperlipidemia, unspecified; M43.16 Spondylolisthesis, lumbar region; F32.9 Major depressive disorder, single episode, unspecified; I10 Essential (primary) hypertension; I25.10 Atherosclerotic heart disease of native coronary artery without angina pectoris; F41.9 Anxiety disorder, unspecified; J45.909 Unspecified asthma, uncomplicated; K21.9 Gastro-esophageal reflux disease without esophagitis; E66.9 Obesity, unspecified; G47.33 Obstructive sleep apnea (adult) (pediatric); Z68.31 Body mass index [BMI] 31.0-31.9, adult; Z79.899 Other long term (current) drug therapy
CPT/HCPCS: 36415; 76001; 81001; 85025; 87086; 94640; A4216; C1713; C1768; G8978-GP-CL; G8979-GP-CJ; G8987-GO-CL; G8988-GO-CJ; J0670; J1100; J1170; J2001; J2250; J2405; J2550; J2704; J2765; J3370; J3490; J7611

== ENCOUNTER 2017-06-07 13:02 | Outpatient (CLI) | payer MEDICARE, MEDICAID ==
[2017-06-07 14:35] LABS: Hemoglobin 12.6 g/dL (12.0-16.0); Mean Corpuscular HGB CONC 34.2 g/dL (32.0-36.0); Mean Corpuscular Hemoglobin 34.6 pg (27.0-31.0); Mean Platelet Volume 8.2 fL (7.4-10.4); Platelet Count 311 thou/uL (130-400); RBC Distribution Width 11.1 % (11.5-14.5); Red Blood Cell (RBC) Count 3.63 mill/uL (4.20-5.40); White Blood Cell (WBC) Count 8.4 thou/uL (4.8-10.8)
[2017-06-07 14:40] LABS: Prothrombin Time 13.5 SEC (12.0-14.7)
[2017-06-07 14:41] LABS: PTT 34.1 SEC (22.9-36.1)
[2017-06-07 16:21] LABS: Anion Gap 11 mmol/L (10-20); BUN (Urea Nitrogen) 13 mg/dL (9.8-20.1); Calc. Creatinine Clearance 0 mL/min (70-130); Calcium 9.9 mg/dL (7.8-10.44); Carbon Dioxide 30 mmol/L (22-29); Chloride 103 mmol/L (98-107); Estimated GFR-MDRD 71; Glucose 68 mg/dL (70-105); Potassium 4.5 mmol/L (3.5-5.1); Sodium 139 mmol/L (136-145)
== END 2017-06-07 13:03 | disposition home or self-care (01) ==
LOC: LABBT 13:02
PROVIDERS: ATTEND Neurological Surgery
DX: Z01.812 Encounter for preprocedural laboratory examination (principal); M48.061 Spinal stenosis, lumbar region without neurogenic claudication; M54.16 Radiculopathy, lumbar region
CPT/HCPCS: 80048; 85027; 85610; 85730; 93005; 93010

== ENCOUNTER 2017-08-15 10:10 | Outpatient (CLI) | payer MEDICARE, MEDICAID ==
--- NOTE | 2017-08-15 12:03 | RAD ---
LUMBAR SPINE TWO VIEWS: HISTORY: A 57-year-old female with a history of low back pain following surgery. FINDINGS: Status post laminectomy and pedicle screw placement changes at L4, L5, and S1, with an intradiskal pr osthesis. Mild anterolisthesis of L4 on L5 but definitely improved from presurgical exam. Mild levo scoliosis. IMPRESSION: Postoperative changes. Improvement in the previously noted more marked anterolisthesis of L4 on L5. POS: OFF
== END 2017-08-15 10:11 | disposition home or self-care (01) ==
LOC: TBSIIMAG 10:10
PROVIDERS: ATTEND Neurological Surgery
DX: M54.5 Low back pain (principal); M54.16 Radiculopathy, lumbar region; Z98.1 Arthrodesis status
CPT/HCPCS: 72100

== ENCOUNTER 2017-08-21 10:10 | Outpatient (CLI) | payer MEDICARE, MEDICAID | END 2017-08-21 10:11 | disposition home or self-care (01) | LOC: BICRAD 10:10 | PROVIDERS: ATTEND Family Medicine | DX: J45.909 Unspecified asthma, uncomplicated (principal); I70.0 Atherosclerosis of aorta | CPT/HCPCS: 71046 ==

== ENCOUNTER 2017-09-04 12:52 | Outpatient (CLI) | payer MEDICARE, MEDICAID | END 2017-09-04 12:53 | disposition home or self-care (01) | LOC: BICMAMMO 12:52 | PROVIDERS: ATTEND Family Medicine | DX: Z12.31 Encounter for screening mammogram for malignant neoplasm of breast (principal); R92.1 Mammographic calcification found on diagnostic imaging of breast; Z80.3 Family history of malignant neoplasm of breast | CPT/HCPCS: 77063; 77067 ==

== ENCOUNTER 2019-01-09 08:41 | Outpatient (CLI) | payer MEDICARE, MEDICAID ==
--- NOTE | 2019-01-09 10:39 | MMO ---
Bilateral MAMMO Bilat Screen [facility]. CLINICAL HISTORY: Patient is 58 years old and is seen for screening. The patient has no family history of breast cancer. The patient has no personal history of cancer. The patient has a history of left needle biopsy in 1984 and 1988 - benign and left Excisional Biopsy in 1984 - benign - removed cyst. VIEWS: The views performed were: bilateral craniocaudal with tomosynthesis and bilateral mediolateral oblique with tomosynthesis. FILMS COMPARED: The present examination has been compared to prior imaging studies performed at [facility] on 04/19/2014, 08/29/2015, 08/30/2016 and 09/04/2017. This study has been interpreted with the assistance of computer-aided detection. MAMMOGRAM FINDINGS: There are scattered fibroglandular densities. There are stable benign appearing densities seen in both breasts. There are benign appearing calcifications. There are no suspicious masses, suspicious calcifications, or new areas of architectural distortion. IMPRESSION: THERE IS NO MAMMOGRAPHIC EVIDENCE OF MALIGNANCY. A ROUTINE FOLLOW-UP MAMMOGRAM IN 1 YEAR IS RECOMMENDED. THE RESULTS OF THIS EXAM WERE SENT TO THE PATIENT. ACR BI-RADS Category 2 - Benign finding MAMMOGRAPHY NOTE: 1. A negative mammogram report should not delay a biopsy if a dominant of clinically suspicious mass is present. 2. Approximately 10% to 15% of breast cancers are not detected by mammography. 3. Adenosis and dense breasts may obscure an underlying neoplasm. Reported by: KELSI YOUNG MD Electonically Signed: [id number]
== END 2019-01-09 08:42 | disposition home or self-care (01) ==
LOC: BICMAMMO 08:41
PROVIDERS: ATTEND Family Medicine
DX: Z12.31 Encounter for screening mammogram for malignant neoplasm of breast (principal)
CPT/HCPCS: 77063; 77067

== ENCOUNTER 2019-01-14 07:22 | Outpatient (CLI) | payer MEDICARE, MEDICAID ==
--- NOTE | 2019-01-14 09:53 | CT ---
CT ABDOMEN AND PELVIS WITHOUT IV CONTRAST WITH MULTIPLANAR RECONSTRUCTION: INDICATIONS: Right flank pain. Surgical history includes appendectomy. FINDINGS: The lung bases are clear. The liver, spleen and pancreas are unremarkable. The adrenal glands are normal. There is a small fixed sliding diaphragmatic hernia. The kidneys are unremarkable. No hydronephrosis. No evidence of urinary tract calculus. The urinary b ladder is mildly distended and unremarkable. Small bowel loops are of normal caliber. There is stool and gas throughout the colon. The aorta shows calcification without aneurysm. Images through the pelvis show an unremarkable uterus and adnexa. No free fluid. Postoperative change s at the lumbosacral region. Severe degenerative changes at both hips with diffuse subchondral cystic changes on both sides of the hip joints bilaterally with prominent spurring from the femoral heads. IMPRESSION: 1. Small fixed sliding diaphragmatic hernia. 2. No acute intra-abdominal process. 3. Severe degenerative changes at both hips, as described. POS: OFF
== END 2019-01-14 07:23 | disposition home or self-care (01) ==
LOC: SCSCT 07:22
PROVIDERS: ATTEND Urology
DX: N20.0 Calculus of kidney (principal); K44.9 Diaphragmatic hernia without obstruction or gangrene; M16.0 Bilateral primary osteoarthritis of hip
CPT/HCPCS: 74176

== ENCOUNTER 2019-05-16 21:54 | Observation (INO) | payer MEDICARE ==
[2019-05-16] MEDS ORDERED: Sodium Chloride 0.9% 1,000 ML IV SCH (23:30)
[2019-05-16 23:39] VITALS: BMI 27.4
[2019-05-17] MEDS ORDERED: Albuterol Sulfate 2.5 mg/3 ml Neb NEB PRN (00:06)
[2019-05-17] MEDS ORDERED: Ondansetron PF 4 MG/2 ML Vial IVP PRN (00:40)
[2019-05-17] MEDS ORDERED: Acetaminophen 325 MG TAB PO PRN (00:40)
[2019-05-17] MEDS ORDERED: Calcium Carbonate 500 MG ChewTAB PO PRN (00:40)
[2019-05-17] MEDS ORDERED: Ondansetron ODT 4 MG TAB PO PRN (00:40)
[2019-05-17] MEDS: D5 1/2 NS w/40 mEq KCL 1,000 ML IV SCH ×4 (00:41→23:54)
[2019-05-17] MEDS ORDERED: Sodium Chloride 0.9% (PF) 10 ML VIAL FS PRN (00:51)
[2019-05-17] MEDS ORDERED: traMADol HCl 50 MG TAB PO PRN (00:53)
[2019-05-17] MEDS ORDERED: PROVENTIL INHALER 6.7 G (200 INHALATIONS) INH PRN (00:53)
--- NOTE | 2019-05-17 01:16 | HP ---
PRIMARY CARE PHYSICIAN: Dr. Fowler. CHIEF COMPLAINT: Nausea and vomiting. HISTORY OF PRESENT ILLNESS: The patient is a 59-year-old female with coronary artery disease, GERD, hiatal hernia, cannabis abuse, presented to [facility] with above complaints. She was seen in the emergency room yesterday and day before yesterday for similar complaint. Over the last 1 week, the patient has intractable nausea and vomiting that is progressively getting worse. She has not been eating and drinking well for this reason. The last episode of vomiting food was approximately 3 to 4 days ago. Over the last 2 to 3 days, her vomitus is thick yellowish mucus. Her last bowel movement was 4 days ago. She admits using cannabis every night for sleep. She had some abdominal cramping 2 to 3 days ago that has resolved. She had EGD and colonoscopy more than [address] Holden. She denies any chest pain, palpitations, lightheadedness, dizziness, or syncope. She has been feeling generally weak and fatigued. She also had low-grade fever up to 99 to 100 degrees over the past 3 days. No cough, or shortness of breath reported. She complains of intermittent wheezing. No dysuria, hematuria, or urgency reported. She normally gets nauseas when she has UTIs. However, her urinalysis was negative for UTI at the ER. PAST MEDICAL HISTORY: 1. GERD. 2. Hiatal hernia. 3. Chronic cannabis abuse. 4. Hyperlipidemia. 5. Hypertension. 6. Coronary artery disease, followed by Dr. Plunkett. 7. Chronic constipation. 8. History of small bowel obstruction in the past. 9. Chronic pain syndrome. PAST SURGICAL HISTORY: 1. Appendectomy. 2. Spinal surgery. 3. Caesarian section. ALLERGIES: NO KNOWN DRUG ALLERGIES. CURRENT HOME MEDICATIONS: 1. Metoprolol 50 mg b.i.d. 2. Singulair 10 mg daily. 3. Omeprazole 20 mg at bedtime. 4. Lyrica 100 mg at bedtime. 5. Ranexa 500 mg b.i.d. 6. Tramadol as needed. 7. Pepcid 20 mg q.p.m. 8. Lipitor 20 mg at bedtime. 9. Aspirin 81 mg daily. 10. Xanax 0.5 mg b.i.d. 11. Albuterol inhaler and nebulizer as needed. SOCIAL HISTORY: As discussed above. No smoking, or alcohol use. She lives at home with her family. FAMILY HISTORY: Positive for diabetes. REVIEW OF SYSTEMS: All other review of systems were reviewed and were found negative. PHYSICAL EXAMINATION: VITAL SIGNS: In the emergency room showed temperature 98.6, pulse rate of 123, respiration of 18 with a blood pressure 162/112, O2 saturation 100% on room air. GENERAL: A 59-year-old female, in no distress. No abdominal pain reported. HEENT: Head, atraumatic and normocephalic. Sclerae anicteric. Dry mucous membranes. No oral lesion. NECK: Supple. No JVD. No carotid bruit. LUNGS: Showed scattered wheezing without any rhonchi or rales. HEART: S1, S2 present. Regular rate. No rubs or gallops. ABDOMEN: Soft, nontender. Bowel sounds present. No rebound or guarding. No costovertebral angle tenderness. EXTREMITIES: No edema or calf tenderness. NEUROLOGIC: Grossly nonfocal. Moves all 4 extremities. PSYCHIATRIC: Alert, awake, oriented x3. SKIN: Warm and dry. LYMPH NODES: No palpable lymph nodes in the neck. PERIPHERAL VASCULAR: Radial pulses palpable bilaterally. MUSCULOSKELETAL: No joint swelling tenderness. MEDICATION ADMINISTERED IN THE ER: 1 g ceftriaxone, IV fluids, Zofran 5 mg, intramuscular Haldol, 15 mg Toradol. DIAGNOSTIC TESTS: EKG by my review showed sinus tachycardia with nonspecific ST-T wave changes. CT scan of the abdomen and pelvis done 2 days ago by my review was negative for acute findings. It showed small hiatal hernia. LABORATORY FINDINGS: Urinalysis showed ketones without any WBC or bacteria. Potassium 3.3 with bicarbonate 21, sodium 140, BUN of 10, creatinine 0.74. Lactic acid was 1.2. Troponin was negative. WBC 10.8 with hemoglobin 14.5, hematocrit 44.5, platelet of 335. IMPRESSION: 1. Intractable nausea and vomiting of unclear etiology. 2. Chronic cannabis abuse, probably contributing to nausea and vomiting. 3. Mild persistent asthma. 4. Small hiatal hernia. 5. Gastroesophageal reflux disease. 6. Hypertension. 7. Hyperlipidemia. 8. Coronary artery disease. 9. Anxiety. 10. Sinus tachycardia secondary to dehydration. 11. Metabolic acidosis secondary to starvation ketosis. PLAN: The patient will be monitored on the medical floor. We will start her on IV PPIs with IV fluids containing dextrose. We will replace potassium. We will get right upper quadrant ultrasound. We will keep her n.p.o. Resume selected home medications. Recheck labs in a.m. Her troponins were negative. The patient was counseled on cannabis cessation. We will continue Zofran as needed. Vital signs q.4 hourly. The patient understands the above plan of care. Job ID: [id number]
[2019-05-17 06:23] LABS: #Basophils 0.1 thou/uL (0.0-0.2); #Lymphocytes 3.2 thou/uL (1.20-3.40); #Monocytes 0.7 thou/uL (0.11-0.59); #Neutrophils 4.3 thou/uL (1.40-6.50); %Eosinophils 0.2 % (0.0-10.0); %Lymphocytes 38.3 % (21.0-51.0); %Monocytes 8.4 % (0.0-10.0); %Neutrophils 52.1 % (42.0-75.0); Mean Corpuscular HGB CONC 32.1 g/dL (32.0-36.0); Mean Corpuscular Hemoglobin 32.1 pg (27.0-31.0); Mean Platelet Volume 7.9 fL (7.4-10.4); Platelet Count 259 thou/uL (130-400); RBC Distribution Width 11.1 % (11.5-14.5); Red Blood Cell (RBC) Count 3.43 mill/uL (4.20-5.40); White Blood Cell (WBC) Count 8.3 thou/uL (4.8-10.8)
[2019-05-17 06:48] LABS: ALT (SGPT) 10 U/L (8-55); AST (SGOT) 15 U/L (5-34); Albumin 3.4 g/dL (3.4-4.8); Alkaline Phosphatase 43 U/L (40-110); Anion Gap 11 mmol/L (10-20); BUN (Urea Nitrogen) 8 mg/dL (9.8-20.1); Bilirubin, Total 0.5 mg/dL (0.2-1.2); Calc. Creatinine Clearance 95 mL/min (70-130); Calcium 8.1 mg/dL (7.8-10.44); Carbon Dioxide 24 mmol/L (23-31); Chloride 107 mmol/L (98-107); Estimated GFR-MDRD Greater than 90; Glucose 95 mg/dL (80-115); Magnesium 1.4 mg/dL (1.6-2.6); Phosphorus 2.7 mg/dL (2.3-4.7); Potassium 3.1 mmol/L (3.5-5.1); Protein, Total 5.4 g/dL (6.0-8.3); Sodium 139 mmol/L (136-145)
[2019-05-17] MEDS ORDERED: Potassium Chloride 20 MEQ/100 ML PREMIX BAG IVPB SCH (07:00)
[2019-05-17] MEDS ORDERED: Magnesium Sulfate 4 GM in Sodium Chloride 0.9% 250 ML 250 ML IVPB SCH (07:00)
[2019-05-17] MEDS: Mometasone/Formoterol 120 PUFF INHALER INH SCH ×2 (07:01→19:01)
[2019-05-17] MEDS: Pantoprazole 40 MG VIAL IVP SCH ×2 (07:48→20:13)
[2019-05-17] MEDS: Metoprolol Tartrate 50 MG TAB PO SCH ×2 (08:40→20:12)
[2019-05-17] MEDS: ALPRAZolam 0.5 MG TAB PO SCH ×2 (08:40→20:10)
--- NOTE | 2019-05-17 09:08 | ULT ---
GALLBLADDER ULTRASOUND: HISTORY: Nausea and vomiting. COMPARISON: CT of the abdomen and pelvis from 05/14/2019. FINDINGS: Liver echogenicity is somewhat coarse and heterogeneous. There is a mobile, nonshadowing, faint echog enic focus in the dependent portion of the gallbladder, favored to be a sludge ball, although could c onceivably represent a nonshadowing gallstone. No gallbladder wall thickening or pericholecystic flui d. The common bile duct is 0.3 cm. The visualized pancreas and right kidney are unremarkable. IMPRESSION: 1. Nonshadowing, mobile, echogenic focus within the gallbladder. 2. Somewhat heterogeneous liver echogenicity. POS: [facility]
[2019-05-17] MEDS: Aspirin 81 mg Enteric Coated Tablet PO SCH (13:49)
[2019-05-17] MEDS ORDERED: Atorvastatin Calcium 20 MG TAB PO SCH (21:00)
[2019-05-17] MEDS ORDERED: Pregabalin 50 MG CAP PO SCH (21:00)
--- NOTE | 2019-05-18 01:11 | CON ---
DATE OF CONSULTATION: 05/17/2019 CHIEF COMPLAINT: Nausea and vomiting. HISTORY OF PRESENT ILLNESS: Ms. Nassar is a 59-year-old woman, who presented to the emergency room with recurrent nausea and vomiting. She states that she has had problems with recurrent urinary tract infections and whenever she gets a urinary tract infection, she develops episodes of nausea and vomiting with them. She takes antibiotics for UTI and after few days, nausea goes away as well. She states that on Saturday, she developed a urinary tract infection by that evening and again she developed nausea and vomiting and some lower abdominal aching discomfort with that. She went to the emergency room, and she was started on an antibiotic. The next day, she had recurrent nausea and vomiting, so she went back to the emergency room, this time in [place] and her antibiotic was changed to Augmentin. Couple nights later, she again had nausea and vomiting and went back to the emergency room and was given IV fluids. She went back for a fourth time last night and was given fluids and by this time, her urine was clear. After fluids, she has had no further problems since last night. Today, she went the entire day without any nausea. She has remained n.p.o., however. She has had no diarrhea, constipation, or blood in the stool. She does smoke 1 to 3 times marijuana each night for chronic pain in her back and legs. This helps her sleep at night. She has been doing this since 70s. She has had no weight changes recently. She states that she had a colonoscopy by Dr. Holden around March of 2018 with couple of polyps removed. Currently states she feels back to normal and will try to eat regular food. She has no nausea or discomfort. She did have some soreness in her epigastric region, which she feels like was muscular from the dry heaving earlier in the week. PAST MEDICAL HISTORY: Gastroesophageal reflux disease. States that she had EGD in [place] over 10 years ago. Hyperlipidemia, hypertension, and coronary artery disease. States that she has arthritis of her knees and hips bilaterally as well. PAST SURGICAL HISTORY: Appendectomy, back surgery, and . FAMILY HISTORY: Negative for GI malignancy. SOCIAL HISTORY: She smokes marijuana 1 to 3 times per night. She has been doing this for years. No alcohol. No cigarette smoking. ALLERGIES: NO KNOWN DRUG ALLERGIES. MEDICATIONS: 1. Metoprolol. 2. Alprazolam. 3. Aspirin. 4. Atorvastatin. 5. Dulera inhaler. 6. Pantoprazole. 7. Ranexa. 8. Lyrica. 9. Tramadol. REVIEW OF SYSTEMS: Negative x10 systems reviewed, except as stated in the history of present illness. PHYSICAL EXAMINATION: VITAL SIGNS: Temperature 99.2, pulse 88, and blood pressure 173/93. GENERAL: She is in no acute distress. Alert and oriented x3. HEENT: Eyes have no scleral icterus. Oropharynx is clear without lesions. NECK: No cervical or supraclavicular lymphadenopathy. LUNGS: Clear to auscultation bilaterally. HEART: Regular rate and rhythm without murmur. ABDOMEN: Soft, nontender, and nondistended. Bowel sounds are present. EXTREMITIES: No lower extremity edema. NEURO: Cranial nerves are grossly intact. LABORATORY DATA: White blood cell count 8.3, hemoglobin 11.0, and platelets 259. Creatinine 0.63, bilirubin 0.5, AST 15, ALT 10, alkaline phosphatase 43, albumin 3.4, and lipase 13. IMPRESSION: 1. Recurrent episodes of nausea and vomiting. The patient states that she has had recurrent urinary tract infections and each time she gets urinary tract infection, she develops episodes of nausea and vomiting that resolve within a few days after she treats urinary tract infection. She has no chronic symptoms in between these episodes. It is possible there is another etiology for these. She does smoke marijuana daily and cannabis hyperemesis syndrome is a consideration; however, it seems that her symptoms go away when she takes antibiotics for urinary tract infection. For now, her symptoms have resolved and we will try to advance her diet. She had a CT scan of the abdomen and pelvis, which was unremarkable. She has been to the ER other times in the year last year and had a couple other CT scans also that were negative. She did have an ultrasound of her gallbladder this morning that showed question of a sludge ball and no evidence of acute cholecystitis. She has had no right upper quadrant pain. She has no abdominal pain currently. 2. History of colon polyps. She has followed with Dr. Holden and has had colonoscopies performed with polyps removed. RECOMMENDATIONS: 1. Advance her diet now. If she tolerates regular diet, then she can be discharged to home tomorrow and follow up with Dr. Ragupathi in the office. Upper endoscopy could be considered in the light of history of gastroesophageal reflux and recurrent episodes of nausea and vomiting. If she develops recurrent nausea or vomiting after restarting her diet this evening, then we could plan endoscopy while she is here in the hospital. 2. Continue proton pump inhibitor. 3. She has mild anemia noted by her CBC this morning. I will check iron studies and B12 and folate. Job ID: [id number]
[2019-05-18 05:57] LABS: #Basophils 0.1 thou/uL (0.0-0.2); #Lymphocytes 3.3 thou/uL (1.20-3.40); #Monocytes 0.6 thou/uL (0.11-0.59); #Neutrophils 3.9 thou/uL (1.40-6.50); %Basophils 1.1 % (0.0-1.0); %Eosinophils 0.5 % (0.0-10.0); %Lymphocytes 41.9 % (21.0-51.0); %Monocytes 7.5 % (0.0-10.0); Hemoglobin 11.7 g/dL (12.0-16.0); Mean Corpuscular HGB CONC 32.8 g/dL (32.0-36.0); Mean Corpuscular Hemoglobin 32.9 pg (27.0-31.0); Platelet Count 260 thou/uL (130-400); RBC Distribution Width 11.1 % (11.5-14.5); Red Blood Cell (RBC) Count 3.57 mill/uL (4.20-5.40); White Blood Cell (WBC) Count 7.9 thou/uL (4.8-10.8)
[2019-05-18 06:19] LABS: Iron 79 ug/dL (50-170); Iron Binding Capacity, Total 231 mcg/dL (265-497)
[2019-05-18 06:46] LABS: Ferritin 87.95 ng/mL (10-291)
[2019-05-18] MEDS: Mometasone/Formoterol 120 PUFF INHALER INH SCH (06:57)
[2019-05-18] MEDS: D5 1/2 NS w/40 mEq KCL 1,000 ML IV SCH (08:34)
[2019-05-18] MEDS: Aspirin 81 mg Enteric Coated Tablet PO SCH (08:35)
[2019-05-18] MEDS: Metoprolol Tartrate 50 MG TAB PO SCH (08:36)
[2019-05-18] MEDS: ALPRAZolam 0.5 MG TAB PO SCH (08:36)
[2019-05-18] MEDS: Pantoprazole 40 MG VIAL IVP SCH (08:36)
[2019-05-18 11:24] VITALS: BP 128/84; TEMP 98
--- NOTE | 2019-05-19 01:33 | DIS ---
DATE OF ADMISSION: 05/16/2019 DATE OF DISCHARGE: 05/18/2019 DISCHARGE DIAGNOSES: 1. Nausea and vomiting, unclear etiology, resolved. 2. Chronic cannabis abuse with questionable hyperemesis syndrome. 3. Gastroesophageal reflux. 4. Hypertension, stable. CONSULTATIONS: Dr. Sen with GI Service. PERTINENT LABORATORY AND X-RAY FINDINGS: Potassium 3.1, magnesium 1.4, serum iron level 79, TIBC 231, ferritin 88. LFTs within normal limits. Albumin 3.4. Vitamin B12 level 1235, folate 14.2. CBC showed hemoglobin ranging between 11.0 to 11.7, MCV 100. CT of the abdomen and pelvis dated 05/14/2019, showed small hiatal hernia. Otherwise, no acute process identified. Abdominal ultrasound dated 05/17/2019, showed non-shadowing mobile echogenic focus likely sludge ball. Common bile duct 0.3 cm. HOSPITAL COURSE: The patient was admitted to the medical floor after presenting with intractable nausea and vomiting with CT of the abdomen and pelvis showing no clear etiology or pathology. The patient received IV fluids in addition to antiemetics and potassium supplementation. The patient received general supportive management, was evaluated by the GI Service without recommendations for acute intervention. The patient's symptoms resolved spontaneously and with supportive management and patient overall remained clinically stable during the hospital course. Current recommendations are for outpatient GI followup and avoid the use of cannabis. I have examined the patient at the time of discharge and discussed followup instructions. The patient verbalizes understanding and agreement and ready for discharge, 05/18/2019. DISCHARGE MEDICATIONS: 1. Albuterol sulfate 2.5 mg nebulized q.8 hours p.r.n. 2. Alprazolam 0.5 mg p.o. b.i.d. 3. Enteric-coated aspirin 81 mg p.o. daily. 4. Lipitor 20 mg p.o. at bedtime. 5. Align 4 mg p.o. daily. 6. Cranberry extract one tablet p.o. at bedtime. 7. Pepcid 20 mg p.o. q.a.m. 8. Breo Ellipta 200/25 mcg one puff inhaled q.a.m. 9. Glucosamine 1 capsule p.o. b.i.d. 10. Lisinopril 5 mg p.o. at bedtime. 11. Magnesium 250 mg p.o. daily. 12. Metoprolol tartrate 50 mg p.o. b.i.d. 13. Singulair 10 mg p.o. daily. 14. Carpenter-3 fatty acids 1 capsule p.o. daily. 15. Omeprazole 20 mg p.o. at bedtime. 16. Lyrica 100 mg p.o. at bedtime. 17. Ranexa 500 mg p.o. b.i.d. FOLLOWUP: The patient may follow up with her primary care provider, Dr. Melita Fowler. The patient may follow up with Dr. Holden with GI Service and to call his office for appointment time and date. CONDITION ON DISCHARGE: Stable. ACTIVITY: Ad-bebo. DIET: Regular with fiber restriction. CODE STATUS: Full. DISPOSITION: To home, 05/18/2019. TIME SPENT: Total time preparing and coordinating discharge, 32 minutes. Job ID: [id number]
== END 2019-05-18 12:33 | disposition home or self-care (01) ==
LOC: T4-A 23:00
PROVIDERS: ADMIT Emergency Medicine; ATTEND Emergency Medicine
DX: R11.2 Nausea with vomiting, unspecified (principal); F12.10 Cannabis abuse, uncomplicated; K21.9 Gastro-esophageal reflux disease without esophagitis; I10 Essential (primary) hypertension; I25.10 Atherosclerotic heart disease of native coronary artery without angina pectoris; E78.5 Hyperlipidemia, unspecified; K59.09 Other constipation; E86.0 Dehydration; E88.89 Other specified metabolic disorders; G89.4 Chronic pain syndrome; K44.9 Diaphragmatic hernia without obstruction or gangrene; F41.9 Anxiety disorder, unspecified; Z79.82 Long term (current) use of aspirin; Z79.899 Other long term (current) drug therapy
CPT/HCPCS: 76705; 80053; 82607; 82728; 82746; 83540; 83550; 83735; 84100; 85025 ×2; 94640 ×2; 96365; 96366 ×2; 96375; 96376 ×2; 97139; G0378 ×3; 36415; C9113; J3475; J3480; J7050

== ENCOUNTER 2019-05-21 21:52 | Inpatient (IN) | payer MEDICARE ==
[2019-05-21] MEDS ORDERED: Haloperidol Lactate 5 MG/ML VIAL ONE (22:10)
[2019-05-21] MEDS ORDERED: Ondansetron PF 4 MG/2 ML Vial IVP PRN (22:33)
[2019-05-21] MEDS ORDERED: Labetalol HCl 100 MG/20 ML VIAL ONE (22:37)
--- NOTE | 2019-05-21 23:10 | PDOC.EVN ---
Event Note - Event Note Event Note: [id number] HP
[2019-05-21 23:21] LABS: Troponin I 0.057 ng/mL (< 0.028)
[2019-05-22 00:04] VITALS: BMI 25.6
[2019-05-22] MEDS: Sodium Chloride 0.9% 1,000 ML IV SCH ×3 (00:32→09:43)
--- NOTE | 2019-05-22 01:50 | HP ---
CHIEF COMPLAINT: Nausea and vomiting. HISTORY OF PRESENT ILLNESS: Ms. Nassar is a 59-year-old female with past medical history of coronary artery disease, hypertension, hyperlipidemia, marijuana abuse, asthma, among others; presented to the emergency room with nausea and vomiting that started today. The patient was recently admitted for similar complaints for intractable vomiting. She reports smoking marijuana. In spite of symptomatic treatment with Zofran and promethazine, the patient continues to have vomiting. In the emergency room, the patient also was given IV Haldol. The patient is being admitted to the hospital for further management. PAST MEDICAL HISTORY: 1. Coronary artery disease. 2. Asthma. 3. Marijuana abuse. 4. Bowel obstruction. 5. Hypertension. 6. Hyperlipidemia. PAST SURGICAL HISTORY: 1. section. 2. Appendectomy. 3. Spinal surgery. SOCIAL HISTORY: The patient abuses marijuana. Denies alcohol drinking or smoking cigarettes. FAMILY HISTORY: Reviewed and noncontributory. ALLERGIES: NO KNOWN ALLERGIES. HOME MEDICATIONS: Please see home medication reconciliation form for updated medications. REVIEW OF SYSTEMS: Review of 14 systems negative except what is mentioned in the history of present illness. PHYSICAL EXAMINATION: GENERAL: The patient is awake, alert, in moderate distress. VITAL SIGNS: Blood pressure is 170/90, pulse is 120, respiratory rate is 18, pulse oximetry 97% on room air. HEAD: Normocephalic, atraumatic. NECK: Supple. No JVD. CHEST: Fair bilateral air entry. HEART: S1, S2, regular. ABDOMEN: Soft with mild epigastric tenderness. Bowel sounds present. NEUROLOGIC: Awake, alert, oriented x3. PSYCHIATRIC: Normal mood. EXTREMITIES: No clubbing. No cyanosis. LABORATORY DATA: Troponin 0.04. Potassium is 3.9. CT abdomen and pelvis, no acute finding. ASSESSMENT: 1. Intractable nausea and vomiting. 2. Dehydration. 3. Tachycardia. 4. Hypertension. 5. Hyperlipidemia. 6. Coronary artery disease. 7. Marijuana abuse. PLAN: 1. Admit. 2. Continue with IV fluid hydration. 3. Symptomatic management. 4. The patient was counseled regarding marijuana use and relation between her symptoms and smoking marijuana. 5. Reconcile home medications. 6. Monitor and correct electrolytes. 7. DVT prophylaxis as appropriate. 8. Expected length of stay at least 1 midnight if patient is stable and able to tolerate p.o. Job ID: [id number]
[2019-05-22 02:10] LABS: Troponin I 0.067 ng/mL (< 0.028)
[2019-05-22 02:18] LABS: Anion Gap 13 mmol/L (10-20); BUN (Urea Nitrogen) 10 mg/dL (9.8-20.1); Calc. Creatinine Clearance 73 mL/min (70-130); Calcium 9.3 mg/dL (7.8-10.44); Carbon Dioxide 26 mmol/L (23-31); Chloride 101 mmol/L (98-107); Estimated GFR-MDRD 76; Glucose 93 mg/dL (80-115); Magnesium 1.5 mg/dL (1.6-2.6); Potassium 4.1 mmol/L (3.5-5.1); Sodium 136 mmol/L (136-145)
[2019-05-22] MEDS ORDERED: Albuterol Sulfate 2.5 mg/3 ml Neb NEB PRN (07:55)
[2019-05-22] MEDS ORDERED: traMADol HCl 50 MG TAB PO PRN (07:55)
[2019-05-22] MEDS ORDERED: diphenhydrAMINE 25 MG CAP PO PRN (07:58)
[2019-05-22] MEDS ORDERED: Benzonatate 100 MG CAP PO PRN (07:58)
[2019-05-22] MEDS ORDERED: Labetalol HCl 100 MG/20 ML VIAL SLOW IVP PRN (07:58)
[2019-05-22] MEDS ORDERED: Bisacodyl 10 MG SUPP PR PRN (07:58)
[2019-05-22] MEDS ORDERED: Docusate 100 MG CAP PO PRN (07:58)
[2019-05-22] MEDS ORDERED: Acetaminophen 325 MG TAB PO PRN (07:58)
[2019-05-22] MEDS ORDERED: Melatonin 3 MG TAB PO PRN (07:58)
[2019-05-22] MEDS ORDERED: Metoclopramide HCl 10 MG/2 ML VIAL IVP PRN (08:00)
[2019-05-22] MEDS ORDERED: Non-Formulary Item 1 EACH (Bifidobacterium Infantis [Align] 4 MG) PO SCH (09:00)
[2019-05-22] MEDS: Famotidine/PF 20 mg/2ml Vial SLOW IVP SCH ×2 (09:42→20:31)
[2019-05-22] MEDS: Montelukast Sodium 10 mg Tablet PO SCH (09:42)
[2019-05-22] MEDS: Fish Oil 1,000 MG CAP PO SCH (09:42)
[2019-05-22] MEDS: Metoprolol Tartrate 50 MG TAB PO SCH ×2 (09:43→20:33)
[2019-05-22] MEDS: Aspirin 81 mg Enteric Coated Tablet PO SCH (09:43)
[2019-05-22] MEDS: Magnesium Oxide 250 MG TAB PO SCH (09:43)
[2019-05-22 10:07] LABS: Bacteria/HPF None Seen HPF (None Seen); Bilirubin Negative (Negative); Blood, Urine Negative (Negative); Calcium Oxalate Crystals 3+ HPF (None Seen); Clarity Clear (Clear); Glucose, Urine (Dipstick) Normal (Negative); Leukocyte Negative Leu/uL (Negative); Mucous/LPF 1+ LPF (<2+); Nitrite Negative (Negative); Protein, Urine (Dipstick) 70 mg/dL (Neg-Trace); Urobilinogen Normal mg/dL (Less than 2)
[2019-05-22 10:13] LABS: RBC/HPF 0-3 HPF (0-3)
[2019-05-22 10:14] LABS: Urine Culture Reflex No No
[2019-05-22] MEDS: Mometasone/Formoterol 120 PUFF INHALER INH SCH (11:44)
--- NOTE | 2019-05-22 12:28 | PDOC.HOSPP ---
- Subjective Subjective: Seen and examined on medical unit with telemetry. Breathing comfortably. Denies any black or blood in vomit. States that she is feeling thirsty and N/v is improving. Will advance diet to clear liquids and re consult GI as they were on the case when she was here just a few days ago. Discussed hyperemesis secondary to chronic THC use, she states she has been smoking it since the s. Time was given for questions, patient happy with plan of care. - Objective Vital Signs & Weight: Vital Signs (12 hours) Temp Pulse Resp BP Pulse Ox 05/22/19 11:50 98.2 F 88 16 99/56 L 96 05/22/19 07:41 98.5 F 109 H 16 132/73 94 L 05/22/19 02:50 98.3 F 107 H 16 99 Weight Admit Weight 133 lb 4.8 oz Weight 133 lb 4.8 oz I&O: 05/21/19 05/22/19 05/23/19 06:59 06:59 06:59 Intake Total 563 Balance 563 Result Diagrams: 05/22/19 01:33 Radiology Reviewed by me: Yes Hospitalist ROS - Review of Systems All other systems reviewed; all pertinent +/- noted in HPI/Subj - Medication Medications: Active Medications Generic Name Dose Route Start Last Admin Trade Name Bubba PRN Reason Stop Dose Admin Aspirin 81 mg 05/22/19 09:00 05/22/19 09:43 Ecotrin PO 81 mg DAILY SARAVANAN Administration Famotidine 20 mg 05/22/19 09:00 05/22/19 09:42 Pepcid SLOW IVP 20 mg Q12HR SARAVANAN Administration Fish Oil 1,000 mg 05/22/19 09:00 05/22/19 09:42 Fish Oil PO 1,000 mg DAILY SARAVANAN Administration Sodium Chloride 1,000 mls @ 50 mls/hr 05/22/19 09:12 05/22/19 09:43 Normal Saline 0.9% IV 1,000 mls .Q20H SARAVANAN Administration Magnesium Oxide 250 mg 05/22/19 09:00 05/22/19 09:43 Magnesium Oxide PO 250 mg DAILY SARAVANAN Administration Metoprolol Tartrate 50 mg 05/22/19 09:00 05/22/19 09:43 Lopressor PO 50 mg BID SARAVANAN Administration Mometasone Furoate/Formoterol Fumar 1 puff 05/22/19 09:00 05/22/19 11:44 Dulera 200 Mcg/5 Mcg Inhaler INH 1 puff QAM SARAVANAN Administration Montelukast Sodium 10 mg 05/22/19 09:00 05/22/19 09:42 Singulair PO 10 mg DAILY SARAVANAN Administration Ranolazine 500 mg 05/22/19 09:00 05/22/19 09:43 Ranexa PO 500 mg BID SARAVANAN Administration Sodium Chloride 10 ml 05/22/19 09:00 05/22/19 09:43 Flush - Normal Saline IVF Not Given Q12HR SARAVANAN - Exam General Appearance: NAD, awake alert Eye: PERRL ENT: normocephalic atraumatic, moist mucosa Neck: supple, symmetric, no lymphadenopathy Heart: no murmur, no gallops, no rubs Respiratory: CTAB, no wheezes, no rales, no ronchi, normal chest expansion Gastrointestinal: soft, non-tender, non-distended, no guarding, no rigidity Extremities: no edema Skin: no lesions, no rashes Neurological: cranial nerve grossly intact, no focal deficits Musculoskeletal: generalized weakness Psychiatric: normal affect, normal behavior, A&O x 3 Hosp A/P (1) Tetrahydrocannabinol (THC) use disorder, moderate, dependence Code(s): F12.20 - CANNABIS DEPENDENCE, UNCOMPLICATED Status: Acute (2) Nausea and vomiting Code(s): R11.2 - NAUSEA WITH VOMITING, UNSPECIFIED Status: Acute (3) Chronic pain Code(s): G89.29 - OTHER CHRONIC PAIN Status: Acute (4) Osteoarthritis Code(s): M19.90 - UNSPECIFIED OSTEOARTHRITIS, UNSPECIFIED SITE Status: Acute (5) Status post lumbar laminectomy Code(s): Z98.890 - OTHER SPECIFIED POSTPROCEDURAL STATES Status: Acute (6) Anxiety and depression Code(s): F41.8 - OTHER SPECIFIED ANXIETY DISORDERS Status: Chronic (7) Asthma Code(s): J45.909 - UNSPECIFIED ASTHMA, UNCOMPLICATED Status: Chronic (8) CAD (coronary artery disease) Code(s): I25.10 - ATHSCL HEART DISEASE OF [place] CORONARY ARTERY W/O ANG PCTRS Status: Chronic (9) Dyslipidemia Code(s): E78.5 - HYPERLIPIDEMIA, UNSPECIFIED Status: Chronic (10) GERD (gastroesophageal reflux disease) Code(s): K21.9 - GASTRO-ESOPHAGEAL REFLUX DISEASE WITHOUT ESOPHAGITIS Status: Chronic (11) Hypertension Code(s): I10 - ESSENTIAL (PRIMARY) HYPERTENSION Status: Chronic - Plan Plan: Medical unit with telemetry Re consult GI as they were taking care of her just a few days ago Intractable N/v on admission, symptomatic medications on board No overt black or blood in vomitus Hemoconcentrated on admission, no acute blood loss anemia PPI Abstinence from THC recommended, as this is likely contributing to symptoms Continue home medications as able BP control Blood sugar control GI PPX with PPI DVT PPX
[2019-05-22] MEDS: Pregabalin 50 MG CAP PO SCH (20:31)
[2019-05-22] MEDS: Atorvastatin Calcium 20 MG TAB PO SCH (20:31)
[2019-05-22] MEDS: Lisinopril 2.5 MG TAB PO SCH (20:31)
[2019-05-22] MEDS: ALPRAZolam 0.5 MG TAB PO PRN (20:32)
--- NOTE | 2019-05-23 01:44 | CON ---
DATE OF CONSULTATION: 05/22/2019 REASON FOR CONSULTATION: Persistent nausea and vomiting. CONSULTING PROVIDER: Erich Carlson DO HISTORY OF PRESENT ILLNESS: The patient is a 59-year-old female with past medical history of coronary artery disease, asthma, hypertension, hyperlipidemia, bowel obstruction and marijuana abuse, presenting with persistent nausea and vomiting. Upon speaking with the patient, she states that she has been having recurrent episodes of increased nausea and vomiting that had been present for the last seven years. These are usually been associated with onset of urinary tract infection, which would then generate elevated blood pressures in addition to her nausea and vomiting. Between these episodes of nausea and vomiting, she would have complete resolution of her symptoms and no nausea and vomiting nor abdominal pain during that time. When she does have these episodes of nausea and vomiting that will last for approximately 1 to 2 weeks with resolution primarily with antibiotic administration or IV for better control of her blood pressure. The nausea and vomiting seems to be worse with smelling marijuana, increased blood pressure, urinary tract infection, and eating/drinking. However, the nausea and vomiting are better with initiation of IV fluids, antiemetics, antibiotics, and having a bowel movement. Otherwise, associated with nausea and vomiting, she does have intermittent midepigastric abdominal discomfort (no pain per se) and subjective weight loss (cannot quantify). She currently denies any fevers, chills, abdominal pain, dysphagia, odynophagia, melena, hematochezia, or hematemesis (of note, the patient smokes marijuana daily and has been doing so for the last 30 years). Upon further questioning the patient, she does experience symptom relief of her nausea and vomiting in the past with initiation of a hot bath, although she does not do that anymore due to physical limitations of her arthritis. Her last colonoscopy was performed in March 2018, with polyps removed at that time (unknown quantity, size or histology). REVIEW OF SYSTEMS: A 10-category review of systems was obtained with all responses negative except for the pertinent positives as listed in HPI. PAST MEDICAL HISTORY: As per HPI. PAST SURGICAL HISTORY: Spinal surgery, appendectomy, and section. FAMILY HISTORY: Denies any GI malignancies. SOCIAL HISTORY: Denies any alcohol or tobacco abuse, although she does smoke marijuana daily for chronic pain and insomnia. OUTPATIENT MEDICATIONS: Reviewed. ALLERGIES: NO KNOWN DRUG ALLERGIES. PHYSICAL EXAMINATION: VITAL SIGNS: Temperature 98.9, pulse 86, blood pressure 137/65, respiratory rate 14, saturating 96% on room air. GENERAL: The patient is lying in bed, in no acute distress. Alert and oriented x4. HEENT: Normocephalic, atraumatic. NECK: Supple. No JVD or scleral icterus noted. CARDIOVASCULAR: Regular rate and rhythm with no discernible murmurs, gallops, or rubs. RESPIRATORY: Increased resistance to air flow in all lung reynolds with possible wheezing in the bilateral lower lung reynolds. ABDOMEN: Normoactive bowel sounds. Soft, nontender, and nondistended. EXTREMITIES: No cyanosis, clubbing, or edema. LABORATORY DATA: Chemistry with a sodium of 136, potassium 4.1, chloride 101, CO2 of 26, BUN 10, creatinine 0.77, glucose 93, magnesium 1.5. IMAGING DATA: No current GI imaging is available for review. ASSESSMENT AND PLAN: The patient is a 59-year-old female with past medical history of coronary artery disease, asthma, hypertension, hyperlipidemia, bowel obstruction, and marijuana abuse, presenting with persistent nausea and vomiting that has been present for the last seven years. Nausea and vomiting. The patient is presenting with a longstanding history of nausea and vomiting that has been present for at least the last seven years and usually associated with urinary tract infections and hypertensive urgency. However, the patient was recently seen in the hospital and treated with antibiotics for possible urinary tract infection, but continued to have nausea and vomiting beyond this. Based on her history, she does have a significant marijuana abuse history and does note some improvement in her symptoms with administration of a hot bath, lending itself toward the diagnosis of cannabinoid hyperemesis syndrome. However, the differential could also include esophagitis, gastroesophageal reflux disease, peptic ulcer disease, gastritis, Helicobacter pylori infection (less likely) GI neoplasm or intracranial mass/abnormality (less likely). RECOMMENDATIONS: 1. Would continue with IV fluid resuscitation as you are doing. 2. Continue with aggressive antiemetic control. 3. Strongly encouraged cessation of marijuana use. 4. Pain control per primary team, would reconsider patient for alternative methods of pain control other than marijuana use. 5. Please make the patient n.p.o. at midnight for upper endoscopy evaluation tomorrow. If the EGD is negative, then a likely diagnosis would be cannabinoid hyperemesis syndrome in which case, there will be more supportive control and cessation of marijuana. We will continue to follow. Please call with any questions. Job ID: [id number]
[2019-05-23 05:59] LABS: Anion Gap 11 mmol/L (10-20); BUN (Urea Nitrogen) 5 mg/dL (9.8-20.1); Calc. Creatinine Clearance 88 mL/min (70-130); Calcium 8.9 mg/dL (7.8-10.44); Carbon Dioxide 24 mmol/L (23-31); Chloride 106 mmol/L (98-107); Estimated GFR-MDRD Greater than 90; Glucose 85 mg/dL (80-115); Potassium 3.6 mmol/L (3.5-5.1); Sodium 137 mmol/L (136-145)
[2019-05-23] MEDS: Mometasone/Formoterol 120 PUFF INHALER INH SCH (06:46)
[2019-05-23] MEDS ORDERED: Ketamine 50 MG/ML (10ML VIAL) ONE (07:43)
[2019-05-23] MEDS: Sodium Chloride 0.9% 1,000 ML IV SCH (08:09)
[2019-05-23] MEDS: Famotidine/PF 20 mg/2ml Vial SLOW IVP SCH ×2 (08:12→21:01)
[2019-05-23] MEDS: Montelukast Sodium 10 mg Tablet PO SCH (08:12)
[2019-05-23] MEDS: Fish Oil 1,000 MG CAP PO SCH (08:12)
[2019-05-23] MEDS: Metoprolol Tartrate 50 MG TAB PO SCH ×2 (08:12→21:01)
[2019-05-23] MEDS: Aspirin 81 mg Enteric Coated Tablet PO SCH (08:12)
[2019-05-23] MEDS: Magnesium Oxide 250 MG TAB PO SCH (08:12)
[2019-05-23] MEDS: ALPRAZolam 0.5 MG TAB PO PRN ×2 (08:13→21:01)
--- NOTE | 2019-05-23 11:04 | PDOC.HOSPP ---
- Subjective Subjective: Seen and examined. Denies abdominal pain. No overt black or bloody BM. Tolerated liquids yesterday. No further nausea or vomiting. Feeling hungry. Time was given for questions, all answered in detail. - Objective Vital Signs & Weight: Vital Signs (12 hours) Temp Pulse Resp BP Pulse Ox 05/23/19 07:30 98.8 F 82 16 108/59 L 93 L 05/23/19 06:46 83 12 05/23/19 04:13 98.6 F 83 14 115/65 96 Weight Admit Weight 133 lb 4.8 oz Weight 135 lb 3.2 oz I&O: 05/22/19 05/23/19 05/24/19 06:59 06:59 06:59 Intake Total 563 1107 Output Total 750 Balance 563 357 Result Diagrams: 05/23/19 05:31 Radiology Reviewed by me: Yes Hospitalist ROS - Review of Systems All other systems reviewed; all pertinent +/- noted in HPI/Subj - Medication Medications: Active Medications Generic Name Dose Route Start Last Admin Trade Name Freq PRN Reason Stop Dose Admin Alprazolam 0.25 mg 05/22/19 07:55 05/23/19 08:13 Xanax PO 0.25 mg BIDPRN PRN Administration Anxiety Aspirin 81 mg 05/22/19 09:00 05/23/19 08:12 Ecotrin PO 81 mg DAILY SARAVANAN Administration Atorvastatin Calcium 20 mg 05/22/19 21:00 05/22/19 20:31 Lipitor PO 20 mg HS SARAVANAN Administration Famotidine 20 mg 05/22/19 09:00 05/23/19 08:12 Pepcid SLOW IVP 20 mg Q12HR SARAVANAN Administration Fish Oil 1,000 mg 05/22/19 09:00 05/23/19 08:12 Fish Oil PO 1,000 mg DAILY SARAVANAN Administration Sodium Chloride 1,000 mls @ 50 mls/hr 05/22/19 09:12 05/23/19 08:09 Normal Saline 0.9% IV 1,000 mls .Q20H SARAVANAN Administration Lisinopril 5 mg 05/22/19 21:00 05/22/19 20:31 Zestril PO 5 mg HS SARAVANAN Administration Magnesium Oxide 250 mg 05/22/19 09:00 05/23/19 08:12 Magnesium Oxide PO 250 mg DAILY SARAVANAN Administration Metoprolol Tartrate 50 mg 05/22/19 09:00 05/23/19 08:12 Lopressor PO 50 mg BID SARAVANAN Administration Mometasone Furoate/Formoterol Fumar 1 puff 05/22/19 09:00 05/23/19 06:46 Dulera 200 Mcg/5 Mcg Inhaler INH 1 puff QAM SARAVANAN Administration Montelukast Sodium 10 mg 05/22/19 09:00 05/23/19 08:12 Singulair PO 10 mg DAILY SARAVANAN Administration Pantoprazole Sodium 40 mg 05/23/19 09:00 05/23/19 08:13 Protonix PO 40 mg DAILY SARAVANAN Administration Pregabalin 100 mg 05/22/19 21:00 05/22/19 20:31 Lyrica PO 100 mg HS SARAVANAN Administration Ranolazine 500 mg 05/22/19 09:00 05/23/19 08:13 Ranexa PO 500 mg BID SARAVANAN Administration Sodium Chloride 10 ml 05/22/19 09:00 05/23/19 08:23 Flush - Normal Saline IVF Not Given Q12HR SARAVANAN - Exam General Appearance: NAD, awake alert Eye: anicteric sclera ENT: normocephalic atraumatic, moist mucosa Neck: supple, symmetric, no lymphadenopathy Heart: no murmur, no gallops, no rubs Respiratory: CTAB, no wheezes, no rales, no ronchi, normal chest expansion, no tachypnea Gastrointestinal: soft, non-tender, non-distended, no guarding, no rigidity Extremities: no edema Neurological: cranial nerve grossly intact, no focal deficits Musculoskeletal: generalized weakness Psychiatric: normal affect, normal behavior, A&O x 3 Hosp A/P (1) Tetrahydrocannabinol (THC) use disorder, moderate, dependence Code(s): F12.20 - CANNABIS DEPENDENCE, UNCOMPLICATED Status: Acute (2) Nausea and vomiting Code(s): R11.2 - NAUSEA WITH VOMITING, UNSPECIFIED Status: Acute (3) Chronic pain Code(s): G89.29 - OTHER CHRONIC PAIN Status: Acute (4) Osteoarthritis Code(s): M19.90 - UNSPECIFIED OSTEOARTHRITIS, UNSPECIFIED SITE Status: Acute (5) Status post lumbar laminectomy Code(s): Z98.890 - OTHER SPECIFIED POSTPROCEDURAL STATES Status: Acute (6) Anxiety and depression Code(s): F41.8 - OTHER SPECIFIED ANXIETY DISORDERS Status: Chronic (7) Asthma Code(s): J45.909 - UNSPECIFIED ASTHMA, UNCOMPLICATED Status: Chronic (8) CAD (coronary artery disease) Code(s): I25.10 - ATHSCL HEART DISEASE OF [place] CORONARY ARTERY W/O ANG PCTRS Status: Chronic (9) Dyslipidemia Code(s): E78.5 - HYPERLIPIDEMIA, UNSPECIFIED Status: Chronic (10) GERD (gastroesophageal reflux disease) Code(s): K21.9 - GASTRO-ESOPHAGEAL REFLUX DISEASE WITHOUT ESOPHAGITIS Status: Chronic (11) Hypertension Code(s): I10 - ESSENTIAL (PRIMARY) HYPERTENSION Status: Chronic - Plan Plan: Medical unit with telemetry GI consultation, recommendations appreciated May benefit from endoscopy for definitive diagnosis and treatment of symptoms Intractable N/v on admission, symptomatic medications on board No overt black or blood in vomitus Hemoconcentrated on admission, no acute blood loss anemia PPI Abstinence from THC recommended, as this is likely contributing to symptoms Continue home medications as able BP control Blood sugar control GI PPX with PPI DVT PPX
--- NOTE | 2019-05-23 11:29 | OP ---
DATE OF PROCEDURE: 05/23/2019 PROCEDURE PERFORMED: Esophagogastroduodenoscopy (diagnostic). INDICATION FOR PROCEDURE: Chronic nausea and vomiting. DESCRIPTION OF PROCEDURE: After the risks and benefits of the procedure were explained to the patient including risks of bleeding, infection, perforation, reactions to anesthesia, aspiration, and/or pain, informed consent was obtained. The patient was then taken to the endoscopy suite, where she was placed in the left lateral decubitus position, followed by introduction of deep sedation via propofol and anesthesia support. Once the patient was adequately sedated, the standard gastroscope was introduced into the mouth with intubation of the esophagus, stomach, and the proximal small intestines with the findings listed below. The patient tolerated the procedure well with no immediate perioperative complications. Upon conclusion of the procedure, all equipment was removed from the patient and she was transferred to PACU in satisfactory condition. FINDINGS: Esophagus: Normal-appearing mucosa was seen in the proximal, mid, and distal esophagus. There was no evidence of erosions, ulcerations, mass lesions, or active/recent bleeding. There was a very small discrepancy between the diaphragmatic pinch and the GE junction, measuring approximately 0.5 cm, indicating a very, very small hiatal hernia. Stomach: Normal-appearing mucosa was seen in the gastric cardia, fundus, body, greater curvature, antrum, and incisura. A small hiatal hernia was seen on gastric retroflexion. There was no evidence of erosions, ulcerations, mass lesions, or active/recent bleeding. Duodenum: Normal-appearing mucosa was seen in both the duodenal bulb and second portion of the duodenum. There was no evidence of erosions, ulcerations, mass lesions, or active/recent bleeding. IMPRESSION: 1. 0.5 to 1 cm hiatal hernia. 2. Otherwise normal upper endoscopy. RECOMMENDATIONS: 1. Would continue with aggressive antiemetic support as you are doing. 2. While the patient is in the hospital, we would continue with fluid support as well. 3. Strongly encourage marijuana cessation as cannabinoid hyperemesis syndrome is a likely diagnosis. 4. Would have the patient follow up in the GI Clinic as an outpatient in 3 to 4 weeks for further management of her chronic nausea. If the patient is relatively asymptomatic, the patient could be discharged to home with followup in the GI Clinic. We will sign off at this time. Please call with any additional questions. Job ID: [id number]
[2019-05-23] MEDS ORDERED: PHENYLEPHRINE-NS 100 MCG/ML 10 ML SYRINGE ONE (11:48)
[2019-05-23] MEDS ORDERED: Esmolol 100 MG/10 ML VIAL ONE (11:48)
[2019-05-23] MEDS ORDERED: Lidocaine 1% PF 5 ML VIAL ONE (11:48)
[2019-05-23] MEDS ORDERED: PROPOFOL 200 MG/20 ML VIAL ONE (11:48)
[2019-05-23] MEDS: Lisinopril 2.5 MG TAB PO SCH (21:00)
[2019-05-23] MEDS: Pregabalin 50 MG CAP PO SCH (21:01)
[2019-05-23] MEDS: Atorvastatin Calcium 20 MG TAB PO SCH (21:01)
[2019-05-24] MEDS: Sodium Chloride 0.9% 1,000 ML IV SCH (02:14)
[2019-05-24] MEDS: Mometasone/Formoterol 120 PUFF INHALER INH SCH (06:26)
[2019-05-24] MEDS: Famotidine/PF 20 mg/2ml Vial SLOW IVP SCH (10:02)
[2019-05-24] MEDS: Magnesium Oxide 250 MG TAB PO SCH (10:03)
[2019-05-24] MEDS: Fish Oil 1,000 MG CAP PO SCH (10:03)
[2019-05-24] MEDS: Aspirin 81 mg Enteric Coated Tablet PO SCH (10:03)
[2019-05-24] MEDS: Montelukast Sodium 10 mg Tablet PO SCH (10:03)
[2019-05-24] MEDS: Metoprolol Tartrate 50 MG TAB PO SCH (10:03)
[2019-05-24 11:51] VITALS: BP 111/70; TEMP 98
--- NOTE | 2019-05-24 19:55 | PDISCHARGE ---
Discharge - Disposition Disposition: HOME - Patient Instructions Pre-Printed Education: Nausea and Vomiting, Adult, [id number], Cannabinoid Hyperemesis Syndrome Care Plan Goals: See patient discharge instruction sheet for detailed teaching. Patient verbalizes understanding of medications and is able to verbalize follow-up care. See Discharge Plan for additional discharge information. Patient secured in private vehicle prior to departure. FOCUS: Transition from Acute Care after Discharge GOAL: Successful transition to care in the community YOUR TASKS: (1) review all information outlined in your discharge packet (2) follow any instructions outlined in your discharge packet (3) contact your primary care provider if you have questions or need additional assistance - Referrals and PCP Follow-Up Referrals and PCP Follow-Up: Melita Fowler MD [Primary Care Provider] - 10 Days Max Vargas MD [Active] - 3-4 Weeks (Call office to schedule a follow-up appointment. ) - Activity Instructions Activity:: Activity as Tolerated - Nourishment Instructions Nourishment:: Regular Diet Course - Course Orders, Labs, Meds: Presenting initially with abdominal pain and nausea and vomiting. This was likely thought to be cannabis hyperemesis syndrome due to longstanding cannabis use. Underwent evaluation by gastroenterology including EGD which was negative for any acute pathology. Likely diagnosis related to cannabis use chronically. Was advised to stop use of cannabis and follow-up with GI in the outpatient. At the time of discharge, patient noted improvement in her symptoms. Hosp A/P (1) Tetrahydrocannabinol (THC) use disorder, moderate, dependence Code(s): F12.20 - CANNABIS DEPENDENCE, UNCOMPLICATED Status: Acute (2) Nausea and vomiting Code(s): R11.2 - NAUSEA WITH VOMITING, UNSPECIFIED Status: Acute (3) Chronic pain Code(s): G89.29 - OTHER CHRONIC PAIN Status: Acute (4) Osteoarthritis Code(s): M19.90 - UNSPECIFIED OSTEOARTHRITIS, UNSPECIFIED SITE Status: Acute (5) Status post lumbar laminectomy Code(s): Z98.890 - OTHER SPECIFIED POSTPROCEDURAL STATES Status: Acute (6) Anxiety and depression Code(s): F41.8 - OTHER SPECIFIED ANXIETY DISORDERS Status: Chronic (7) Asthma Code(s): J45.909 - UNSPECIFIED ASTHMA, UNCOMPLICATED Status: Chronic (8) CAD (coronary artery disease) Code(s): I25.10 - ATHSCL HEART DISEASE OF [place] CORONARY ARTERY W/O ANG PCTRS Status: Chronic (9) Dyslipidemia Code(s): E78.5 - HYPERLIPIDEMIA, UNSPECIFIED Status: Chronic (10) GERD (gastroesophageal reflux disease) Code(s): K21.9 - GASTRO-ESOPHAGEAL REFLUX DISEASE WITHOUT ESOPHAGITIS Status: Chronic (11) Hypertension Code(s): I10 - ESSENTIAL (PRIMARY) HYPERTENSION Status: Chronic
--- NOTE | 2019-05-24 19:58 | PDOC.BPN ---
- Brief Progress Note DISCHARGE SUMMARY [facility]IVE [facility] Discharge Patient Name: JAVID LUDWIG Date of : 1960 Patient Status: Inpatient Attending Provider: Yahir Mendez Date: 05/24/19 19:54 Initialization Date: 05/24/19 19:54 Discharge - Disposition Disposition: HOME - Patient Instructions Pre-Printed Education: Nausea and Vomiting, Adult, [id number], Cannabinoid Hyperemesis Syndrome Care Plan Goals: See patient discharge instruction sheet for detailed teaching. Patient verbalizes understanding of medications and is able to verbalize follow-up care. See Discharge Plan for additional discharge information. Patient secured in private vehicle prior to departure. FOCUS: Transition from Acute Care after Discharge GOAL: Successful transition to care in the community YOUR TASKS: (1) review all information outlined in your discharge packet (2) follow any instructions outlined in your discharge packet (3) contact your primary care provider if you have questions or need additional assistance - Referrals and PCP Follow-Up Referrals and PCP Follow-Up: Melita Fowler MD [Primary Care Provider] - 10 Days Max Vargas MD [Active] - 3-4 Weeks (Call office to schedule a follow-up appointment. ) - Activity Instructions Activity:: Activity as Tolerated - Nourishment Instructions Nourishment:: Regular Diet Course - Course Orders, Labs, Meds: Presenting initially with abdominal pain and nausea and vomiting. This was likely thought to be cannabis hyperemesis syndrome due to longstanding cannabis use. Underwent evaluation by gastroenterology including EGD which was negative for any acute pathology. Likely diagnosis related to cannabis use chronically. Was advised to stop use of cannabis and follow-up with GI in the outpatient. At the time of discharge, patient noted improvement in her symptoms. Hosp A/P (1) Tetrahydrocannabinol (THC) use disorder, moderate, dependence Code(s): F12.20 - CANNABIS DEPENDENCE, UNCOMPLICATED Status: Acute (2) Nausea and vomiting Code(s): R11.2 - NAUSEA WITH VOMITING, UNSPECIFIED Status: Acute (3) Chronic pain Code(s): G89.29 - OTHER CHRONIC PAIN Status: Acute (4) Osteoarthritis Code(s): M19.90 - UNSPECIFIED OSTEOARTHRITIS, UNSPECIFIED SITE Status: Acute (5) Status post lumbar laminectomy Code(s): Z98.890 - OTHER SPECIFIED POSTPROCEDURAL STATES Status: Acute (6) Anxiety and depression Code(s): F41.8 - OTHER SPECIFIED ANXIETY DISORDERS Status: Chronic (7) Asthma Code(s): J45.909 - UNSPECIFIED ASTHMA, UNCOMPLICATED Status: Chronic (8) CAD (coronary artery disease) Code(s): I25.10 - ATHSCL HEART DISEASE OF [place] CORONARY ARTERY W/O ANG PCTRS Status: Chronic (9) Dyslipidemia Code(s): E78.5 - HYPERLIPIDEMIA, UNSPECIFIED Status: Chronic (10) GERD (gastroesophageal reflux disease) Code(s): K21.9 - GASTRO-ESOPHAGEAL REFLUX DISEASE WITHOUT ESOPHAGITIS Status: Chronic (11) Hypertension Code(s): I10 - ESSENTIAL (PRIMARY) HYPERTENSION Status: Chronic
== END 2019-05-24 16:10 | disposition home or self-care (01) | DRG 897 ==
LOC: ERS 21:52 → 2SW 23:57 → OBSVTOIN 05-23 07:30
PROVIDERS: ADMIT Internal Medicine; ATTEND Internal Medicine
PROC: 0DJ08ZZ Inspection of Upper Intestinal Tract, Via Natural or Artificial Opening Endoscopic (ICD-10-PCS; principal; 2019-05-23)
DX: F12.20 Cannabis dependence, uncomplicated (principal); G89.29 Other chronic pain; M19.90 Unspecified osteoarthritis, unspecified site; Z98.890 Other specified postprocedural states; J45.909 Unspecified asthma, uncomplicated; I25.10 Atherosclerotic heart disease of native coronary artery without angina pectoris; E78.5 Hyperlipidemia, unspecified; K21.9 Gastro-esophageal reflux disease without esophagitis; I10 Essential (primary) hypertension; F41.9 Anxiety disorder, unspecified; F32.9 Major depressive disorder, single episode, unspecified; Z90.49 Acquired absence of other specified parts of digestive tract; E86.0 Dehydration; R40.2362 Coma scale, best motor response, obeys commands, at arrival to emergency department; R40.2142 Coma scale, eyes open, spontaneous, at arrival to emergency department; R40.2252 Coma scale, best verbal response, oriented, at arrival to emergency department; K44.9 Diaphragmatic hernia without obstruction or gangrene
CPT/HCPCS: 36415; 80048; 81001; 83735; 84484; 93005; 96361; 96374; 96375; J1630; J2001; J2704; S0028

== ENCOUNTER 2019-05-28 17:13 | Observation (INO) | payer MEDICARE ==
[2019-05-28] MEDS ORDERED: Metoclopramide HCl 10 MG/2 ML VIAL ONE (17:53)
[2019-05-28] MEDS ORDERED: Ondansetron PF 4 MG/2 ML Vial ONE (17:53)
[2019-05-28 18:19] LABS: #Lymphocytes 1.5 thou/uL (1.20-3.40); #Monocytes 0.6 thou/uL (0.11-0.59); #Neutrophils 9.4 thou/uL (1.40-6.50); %Basophils 0.2 % (0.0-1.0); %Eosinophils 0.2 % (0.0-10.0); %Lymphocytes 13.1 % (21.0-51.0); %Monocytes 4.8 % (0.0-10.0); %Neutrophils 81.7 % (42.0-75.0); Hemoglobin 13.1 g/dL (12.0-16.0); Mean Corpuscular HGB CONC 33.5 g/dL (32.0-36.0); Mean Corpuscular Hemoglobin 34.2 pg (27.0-31.0); Mean Platelet Volume 7.6 fL (7.4-10.4); Platelet Count 416 thou/uL (130-400); RBC Distribution Width 11.2 % (11.5-14.5); Red Blood Cell (RBC) Count 3.85 mill/uL (4.20-5.40); White Blood Cell (WBC) Count 11.5 thou/uL (4.8-10.8)
[2019-05-28 18:39] LABS: ALT (SGPT) 12 U/L (8-55); AST (SGOT) 14 U/L (5-34); Albumin 4.4 g/dL (3.4-4.8); Alkaline Phosphatase 65 U/L (40-110); Anion Gap 14 mmol/L (10-20); BUN (Urea Nitrogen) 8 mg/dL (9.8-20.1); Bilirubin, Total 0.4 mg/dL (0.2-1.2); Calc. Creatinine Clearance 0 mL/min (70-130); Calcium 9.5 mg/dL (7.8-10.44); Carbon Dioxide 24 mmol/L (23-31); Chloride 104 mmol/L (98-107); Estimated GFR-MDRD 79; Globulin 2.3 g/dL (2.4-3.5); Glucose 125 mg/dL (80-115); Lipase 15 U/L (8-78); Potassium 3.9 mmol/L (3.5-5.1); Protein, Total 6.7 g/dL (6.0-8.3); Sodium 138 mmol/L (136-145)
[2019-05-28 19:28] LABS: Bilirubin Negative (Negative); Blood, Urine Trace (Negative); Glucose, Urine (Dipstick) Negative (Negative); Leukocyte Moderate (Negative); Nitrite Positive (Negative); Protein, Urine (Dipstick) 30 mg/dL (Neg-Trace); Urobilinogen 0.2 mg/dL (Less than 2)
[2019-05-28 19:32] LABS: Clarity Hazy (Clear)
[2019-05-28 19:33] LABS: RBC/HPF 0-3 HPF (0-3); WBC/HPF 21-50 HPF (0-3)
[2019-05-28 19:34] LABS: Bacteria/HPF 2+ HPF (None Seen)
[2019-05-28] MEDS ORDERED: Pantoprazole 40 MG VIAL ONE (20:03)
[2019-05-28] MEDS ORDERED: Promethazine HCl 25 MG/ML VIAL ONE (20:03)
[2019-05-28] MEDS ORDERED: Labetalol HCl 100 MG/20 ML VIAL ONE (22:31)
[2019-05-29] MEDS ORDERED: Ondansetron PF 4 MG/2 ML Vial IVP PRN (00:02)
[2019-05-29] MEDS ORDERED: Ondansetron ODT 4 MG TAB PO PRN (00:02)
[2019-05-29] MEDS ORDERED: hydrALAZINE 20 MG/ML VIAL SLOW IVP PRN (00:05)
[2019-05-29] MEDS ORDERED: Albuterol Sulfate 1.25 MG/3 ML NEB NEB PRN (00:14)
[2019-05-29] MEDS ORDERED: PROVENTIL INHALER 6.7 G (200 INHALATIONS) INH PRN (00:14)
[2019-05-29] MEDS ORDERED: Sodium Chloride 0.9% (PF) 10 ML VIAL FS PRN (00:19)
[2019-05-29] MEDS ORDERED: Metoprolol Tartrate 5 MG/5 ML VIAL IVP SCH (00:30)
--- NOTE | 2019-05-29 01:00 | HP ---
CHIEF COMPLAINT: Nausea and vomiting. HISTORY OF PRESENT ILLNESS: This patient is a 59-year-old female, who was just admitted to this facility on 05/23/2019 and was discharged on 05/24. At that time, the patient was admitted with similar symptoms of nausea and vomiting. She was diagnosed with hyperemesis cannabis. She was seen in consultation by GI and underwent an EGD, which was unremarkable except for a tiny hiatal hernia. The patient was treated symptomatically and discharged to home and advised to no longer use cannabis. The patient reports that she was better when she went home and has not been using marijuana. However, today, she was out and about. She had a slight left lower quadrant abdominal pain. She went home, used heating pad and that pain resolved, but she subsequently started having recurrence of vomiting. She reports that she is having a burning pain in her epigastric and lower chest area that she says is acid. She says now she doing is vomiting acid. REVIEW OF SYSTEMS: She has had no fevers or chills. No diarrhea. No other abdominal pain. All other systems reviewed. All pertinent positives and negatives noted in the HPI. PAST MEDICAL HISTORY: Coronary disease, asthma, marijuana abuse, history of bowel obstruction, hypertension, and hyperlipidemia. PAST SURGICAL HISTORY: , appendectomy, and spinal surgery. SOCIAL HISTORY: The patient uses marijuana. Denies alcohol or drugs. She is full code and her grandson, Pankaj, would be her surrogate decision maker should that become necessary. FAMILY HISTORY: Noncontributory. HOME MEDICATIONS: 1. Ventolin inhaler. 2. Omeprazole 20 mg at bedtime. 3. Fish oil 1400 mg p.o. daily. 4. Lisinopril 5 mg at bedtime. 5. Atorvastatin 20 mg at bedtime. 6. Magnesium 250 mg daily. 7. Align probiotic 4 mg daily. 8. Famotidine 20 mg every morning. 9. Ranexa 500 mg b.i.d. 10. Lyrica 100 mg at bedtime. 11. Albuterol nebulizer p.r.n. 12. Metoprolol 50 mg b.i.d. 13. Alprazolam 0.5 mg b.i.d. 14. Breo Ellipta 200/25 one inhalation every morning. 15. Tramadol 50 mg q.6 hours p.r.n. 16. Cranberry Softgels one daily. 17. Aspirin 81 mg daily. 18. Singulair 10 mg daily. 19. Glucosamine 1 caplet daily. ALLERGIES: NONE. PHYSICAL EXAMINATION: VITAL SIGNS: BP is 164/89, pulse 103, respirations 20, temperature is 99.3, O2 saturation is 97% on room air. GENERAL APPEARANCE: Age-appropriate female. She is in no distress. She is awake and alert. HEART: Regular rate and rhythm without murmurs, gallops, or rubs. LUNGS: Clear to auscultation bilaterally with good chest wall expansion and air exchange. ABDOMEN: Soft, nontender, and nondistended. Positive bowel sounds. No masses. No organomegaly. EXTREMITIES: No cyanosis, clubbing, or edema. PSYCH: Normal affect and behavior. NEURO: No focal deficits. Cranial nerves intact. Spontaneously moving all extremities. LABORATORY DATA: White count 11.5, hemoglobin 13.1, platelets 416. Sodium 138, potassium 3.9, chloride 104, CO2 is 24, BUN is 8, creatinine 0.75, glucose 125, calcium 9.5, total bilirubin 0.4, AST 14, ALT 12, troponin 0.011. UA shows trace protein, trace ketones, trace blood, positive nitrites, moderate leukocyte esterase, 0 to 3 RBC, 21 to 50 WBC with 11 to 20 squamous epithelial cells, 2+ bacteria. IMPRESSION AND PLAN: 1. Nausea and vomiting, likely simply a perpetuation of her hyperemesis cannabis. We will continue with IV fluids, IV Zofran, and benzodiazepines. 2. Hypertension. The patient was unable to take p.o. medications today. We will give p.r.n. IV medications. 3. Possible urinary tract infection. This is not a clean-catch. Likely go and cover with a single dose of Rocephin until this can be further clarified. 4. Tiny hiatal hernia. We will continue to cover with PPI. 5. Asthma. Give p.r.n. breathing treatments and continue her home inhalers. Job ID: [id number] [facility]
[2019-05-29 01:10] VITALS: BMI 27.3
[2019-05-29] MEDS: Lorazepam 2 MG/ML VIAL SLOW IVP PRN (01:28)
[2019-05-29] MEDS: Sodium Chloride 0.9% 1,000 ML IV SCH ×3 (01:29→22:00)
[2019-05-29] MEDS: cefTRIAXone\\ROCEPHIN 1 GM in Sodium Chloride 0.9% 100 ML IVPB SCH (01:30)
[2019-05-29 04:20] LABS: #Monocytes 0.7 thou/uL (0.11-0.59); #Neutrophils 8.8 thou/uL (1.40-6.50); %Basophils 0.1 % (0.0-1.0); %Eosinophils 0.2 % (0.0-10.0); %Lymphocytes 17.3 % (21.0-51.0); %Monocytes 5.9 % (0.0-10.0); %Neutrophils 76.4 % (42.0-75.0); Hemoglobin 13.2 g/dL (12.0-16.0); Mean Corpuscular HGB CONC 33.4 g/dL (32.0-36.0); Mean Corpuscular Hemoglobin 33.7 pg (27.0-31.0); Mean Platelet Volume 7.4 fL (7.4-10.4); Platelet Count 422 thou/uL (130-400); RBC Distribution Width 11.2 % (11.5-14.5); Red Blood Cell (RBC) Count 3.92 mill/uL (4.20-5.40); White Blood Cell (WBC) Count 11.5 thou/uL (4.8-10.8)
[2019-05-29 04:41] LABS: Anion Gap 14 mmol/L (10-20); BUN (Urea Nitrogen) 5 mg/dL (9.8-20.1); Calc. Creatinine Clearance 94 mL/min (70-130); Calcium 8.8 mg/dL (7.8-10.44); Carbon Dioxide 23 mmol/L (23-31); Chloride 101 mmol/L (98-107); Estimated GFR-MDRD Greater than 90; Glucose 117 mg/dL (80-115); Potassium 3.5 mmol/L (3.5-5.1); Sodium 134 mmol/L (136-145)
[2019-05-29] MEDS ORDERED: Morphine 2 MG/ML SYRINGE SLOW IVP SCH (08:00)
[2019-05-29] MEDS: Pantoprazole 40 MG VIAL IVP SCH ×2 (09:22→20:31)
[2019-05-29 09:33] LABS: Amphetamine Not Detected (NotDetected); Barbiturates Screen Not Detected (NotDetected); Benzodiazepine Screen Detected (NotDetected); Cocaine Metabolite Screen Not Detected (NotDetected); Medtox Control Line Valid? VALID (VALID); Medtox Reader # READER 4; Methadone Not Detected (NotDetected); Methamphetamine Not Detected (NotDetected); Opiate Screen Not Detected (NotDetected); Oxycodone Screen Not Detected (NotDetected); Phencyclidine (PCP) Not Detected (NotDetected); THC/Cannabinoid Screen Detected (NotDetected); Tricyclic Screen Not Detected (NotDetected)
[2019-05-29] MEDS: Acetaminophen 325 MG TAB PO PRN ×2 (16:26→20:31)
[2019-05-29] MEDS ORDERED: Metoprolol Tartrate 50 MG TAB PO SCH (17:00)
[2019-05-29] MEDS: Metoprolol Tartrate 50 MG TAB PO SCH (20:33)
[2019-05-30] MEDS: cefTRIAXone\\ROCEPHIN 1 GM in Sodium Chloride 0.9% 100 ML IVPB SCH (01:11)
[2019-05-30] MEDS: Acetaminophen 325 MG TAB PO PRN ×2 (01:12→05:18)
[2019-05-30] MEDS: Lorazepam 2 MG/ML VIAL SLOW IVP PRN (06:32)
[2019-05-30] MEDS: Metoprolol Tartrate 50 MG TAB PO SCH (08:19)
[2019-05-30] MEDS: Pantoprazole 40 MG VIAL IVP SCH (08:19)
[2019-05-30 08:31] VITALS: BP 134/78; TEMP 97.6
--- NOTE | 2019-05-30 08:53 | PDOC.HOSPP ---
- Subjective Encounter Date: 05/29/19 Encounter Time: 10:30 Subjective: pt up in bed states she feels better and tolerated full liquid diet. - Objective Vital Signs & Weight: Vital Signs (12 hours) Temp Pulse Resp BP BP BP Pulse Ox 05/30/19 08:00 97.6 F 109 H 16 134/78 95 05/30/19 03:40 97.9 F 92 16 145/81 H 96 05/30/19 01:15 89 155/79 H 05/29/19 23:25 65 20 97 05/29/19 23:19 98.3 F 107 H 16 129/81 97 Weight Admit Weight 142 lb 3 oz Weight 142 lb 3 oz I&O: 05/29/19 05/30/19 05/31/19 06:59 06:59 06:59 Intake Total 100.25 3288 954 Output Total 700 2650 Balance -599.75 638 954 Result Diagrams: 05/29/19 04:10 05/29/19 04:10 Hospitalist ROS - Review of Systems Cardiovascular: denies: chest pain, palpitations, orthopnea, paroxysmal noc. dyspnea, edema, light headedness, other Gastrointestinal: denies: nausea, vomiting, abdominal pain, diarrhea, constipation, melena, hematochezia, other Genitourinary: denies: dysuria, frequency, incontinence, hematuria, retention, other - Medication Medications: Active Medications Generic Name Dose Route Start Last Admin Trade Name Freq PRN Reason Stop Dose Admin Acetaminophen 650 mg 05/29/19 00:02 05/30/19 05:18 Tylenol PO 650 mg Q4H PRN Administration Headache/Fever/Mild Pain (1-3) Albuterol Sulfate 2 puff 05/29/19 00:14 05/29/19 23:25 Proventil Hfa INH 2 puff Q4H PRN Administration Wheezing Sodium Chloride 1,000 mls @ 100 mls/hr 05/29/19 00:15 05/29/19 22:00 Normal Saline 0.9% IV 1,000 mls .Q10H SARAVANAN Administration Ceftriaxone Sodium 1 gm/ 100 mls @ 200 mls/hr 05/29/19 01:00 05/30/19 01:11 Sodium Chloride IVPB 100 mls 0100 SARAVANAN Administration Lorazepam 0.5 mg 05/29/19 00:04 05/30/19 06:32 Ativan SLOW IVP 0.5 mg Q4H PRN Administration Nausea/Vomiting Metoprolol Tartrate 50 mg 05/29/19 21:00 05/30/19 08:19 Lopressor PO 50 mg BID SARAVANAN Administration Pantoprazole Sodium 40 mg 05/29/19 09:00 05/30/19 08:19 Protonix IVP 40 mg Q12HR SARAVANAN Administration Sodium Chloride 10 ml 05/29/19 00:19 05/29/19 09:22 Normal Saline Pf FS 10 ml PRN PRN Administration RECONSTITUTION Sodium Chloride 10 ml 05/29/19 09:00 05/30/19 08:19 Flush - Normal Saline IVF 10 ml Q12HR SARAVANAN Administration Sodium Chloride 10 ml 05/29/19 01:16 05/30/19 06:32 Flush - Normal Saline IVF 10 ml PRN PRN Administration Saline Flush - Exam Neck: negative: supple, symmetric, no JVD, no thyromegaly, no lymphadenopathy, no carotid bruit, JVD Heart: negative: RRR, no murmur, no gallops, no rubs, normal peripheral pulses, irregular, diminshed peripheral pulses, murmur present, II/IV, III/IV Respiratory: negative: CTAB, no wheezes, no rales, no ronchi, normal chest expansion, no tachypnea, normal percussion, rales, rhonchi, tachypneic, wheezes Gastrointestinal: negative: soft, non-tender, non-distended, normal bowel sounds , no palpable masses, no hepatomegaly, no splenomegaly, no bruit, no guarding, no rigidity, tender to palpation, distended, diminished bowl sounds, voluntary guarding Hosp A/P (1) Nausea and vomiting Code(s): R11.2 - NAUSEA WITH VOMITING, UNSPECIFIED Status: Acute (2) Tetrahydrocannabinol (THC) use disorder, moderate, dependence Code(s): F12.20 - CANNABIS DEPENDENCE, UNCOMPLICATED Status: Acute (3) Anxiety and depression Code(s): F41.8 - OTHER SPECIFIED ANXIETY DISORDERS Status: Chronic (4) CAD (coronary artery disease) Code(s): I25.10 - ATHSCL HEART DISEASE OF [place] CORONARY ARTERY W/O ANG PCTRS Status: Chronic - Plan pt was given one dose of morphine for abdomen pain. she has chronic LLQ pain. she has had ct and ultrasound with no etiology. she states she feels well and will advance her diet. however she states that she does not have a ride home. unable to discharge pt due to ride issues. she was positive for cannabis use but denies using it for the past 2 weeks. she recently had egd which indicated small hiatal hernia.
--- NOTE | 2019-05-30 21:54 | DIS ---
DATE OF ADMISSION: 05/28/2019 DATE OF DISCHARGE: 05/30/2019 DISCHARGE DIAGNOSES: 1. Abdominal pain, nausea, and vomiting. 2. Urinary tract infection. 3. Hypertension. 4. Hiatal hernia. 5. History of marijuana use. HOSPITAL COURSE: Patient is a 59-year-old female, who initially presented to the hospital with nausea, vomiting, and abdominal pain. Patient's UDS was positive for cannabis. However, she stated that she has not been taking it for the past couple of weeks. She had recent imaging done in April of CT of abdomen and pelvis and also ultrasound and she had an endoscopy done just a week ago. No further intervention was done. Patient's nausea and vomiting improved. She was able to tolerate a regular diet. She has had chronic left lower quadrant pain which improved with one dose of morphine. Patient will be sent home with antibiotics. She will follow up with her primary and GI as an outpatient. HOME MEDICATIONS: Have been of the following; 1. Cefdinir 300 mg q.12 hours. 2. Tramadol 50 mg q.6 hours p.r.n. 3. Omeprazole 20 mg at bedtime. 4. Lyrica 100 mg at bedtime. 5. Ranexa 500 mg b.i.d. 6. Metoprolol 50 mg b.i.d. 7. Singulair 10 mg at bedtime. 8. Lisinopril 5 mg at bedtime. 9. Aspirin 81 mg daily. 10. Atorvastatin 20 mg daily. Patient also had a troponin checked and it was negative. She stated that she felt a lot better. She could not go home on 's Day as she did not have a ride. PHYSICAL EXAMINATION: VITAL SIGNS: Temperature 97.6, 92, 16, 96% on room air, and 134/78. GENERAL: She is awake, alert, and oriented x3. Does not appear in distress. CV: S1, S2 present. No murmurs, rubs, or gallops. Again, she will be discharged home. She will follow up with her primary. Job ID: [id number]
--- NOTE | 2019-06-04 16:46 | EKG ---
Test Reason : Blood Pressure : / mmHG Vent. Rate : 104 BPM Atrial Rate : 104 BPM P-R Int : 118 ms QRS Dur : 078 ms QT Int : 346 ms P-R-T Axes : -01 024 037 degrees QTc Int : 454 ms Sinus tachycardia Otherwise normal ECG Confirmed by JAI GOOD DO ([id number]), editor producer BECKY GONZALES ([id number]) on 06/04/2019 4:46:27 PM Referred By: Confirmed By:JAI GOOD DO
== END 2019-05-30 13:10 | disposition home or self-care (01) ==
LOC: ERS 17:13 → ONC 23:41
PROVIDERS: ADMIT Internal Medicine; ATTEND Internal Medicine
DX: R11.2 Nausea with vomiting, unspecified (principal); R10.32 Left lower quadrant pain; F12.20 Cannabis dependence, uncomplicated; I10 Essential (primary) hypertension; N39.0 Urinary tract infection, site not specified; K44.9 Diaphragmatic hernia without obstruction or gangrene; I25.10 Atherosclerotic heart disease of native coronary artery without angina pectoris; J45.909 Unspecified asthma, uncomplicated; E78.5 Hyperlipidemia, unspecified; K59.09 Other constipation; Z79.51 Long term (current) use of inhaled steroids; Z79.82 Long term (current) use of aspirin; Z79.899 Other long term (current) drug therapy
CPT/HCPCS: 80048; 80053; 80306; 83690; 84484; 85025 ×2; 87077; 87086; 87186; 93005; 94640; 94664; 96361 ×3; 96365; 96366; 96367; 96375 ×2; 99285; G0378 ×2; 36415; 81003; 81015; C9113; J0696; J2060; J2270; J2405; J2550; J2765; J3490

== ENCOUNTER 2019-06-01 19:25 | Inpatient (IN) | payer MEDICARE ==
[~2019-06-01 19:25] MED LIST: Iopamidol-370 76% 500 ML 1 ML ONE
--- NOTE | 2019-06-01 20:26 | RAD ---
XR Chest 1 View Portable HISTORY: Chest pain, nausea and vomiting COMPARISON: 05/21/2019 FINDINGS: The heart size is normal. The lungs are well expanded without focal areas of consolidation, pneumothorax or pleural effusions. IMPRESSION: No radiographic evidence of acute cardiopulmonary process.
[2019-06-01 20:36] LABS: #Basophils 0.1 thou/uL (0.0-0.2); #Lymphocytes 1.4 thou/uL (1.20-3.40); #Monocytes 0.3 thou/uL (0.11-0.59); #Neutrophils 6.4 thou/uL (1.40-6.50); %Basophils 0.7 % (0.0-1.0); %Eosinophils 0.2 % (0.0-10.0); %Lymphocytes 17.6 % (21.0-51.0); %Monocytes 3.9 % (0.0-10.0); %Neutrophils 77.6 % (42.0-75.0); Mean Corpuscular HGB CONC 34.4 g/dL (32.0-36.0); Mean Corpuscular Hemoglobin 34.7 pg (27.0-31.0); Mean Platelet Volume 7.1 fL (7.4-10.4); Platelet Count 388 thou/uL (130-400); RBC Distribution Width 11.4 % (11.5-14.5); Red Blood Cell (RBC) Count 3.75 mill/uL (4.20-5.40); White Blood Cell (WBC) Count 8.2 thou/uL (4.8-10.8)
[2019-06-01 20:50] LABS: ALT (SGPT) 12 U/L (8-55); AST (SGOT) 13 U/L (5-34); Albumin 4.3 g/dL (3.4-4.8); Alkaline Phosphatase 68 U/L (40-110); Anion Gap 15 mmol/L (10-20); BUN (Urea Nitrogen) 4 mg/dL (9.8-20.1); Bilirubin, Total 0.5 mg/dL (0.2-1.2); CK (CPK) 84 U/L (29-168); Calc. Creatinine Clearance 0 mL/min (70-130); Calcium 9.4 mg/dL (7.8-10.44); Carbon Dioxide 24 mmol/L (23-31); Chloride 105 mmol/L (98-107); Estimated GFR-MDRD 86; Globulin 2.7 g/dL (2.4-3.5); Glucose 122 mg/dL (80-115); Lipase 7 U/L (8-78); Potassium 3.6 mmol/L (3.5-5.1); Sodium 140 mmol/L (136-145)
[2019-06-01] MEDS ORDERED: Ondansetron PF 4 MG/2 ML Vial ONE (20:51)
[2019-06-01 21:08] LABS: CKMB 1.9 ng/mL (0-6.6)
[2019-06-01] MEDS ORDERED: Nitroglycerin 0.4 MG TAB 1 EACH ONE (21:43)
[2019-06-01 21:48] LABS: Bilirubin Negative (Negative); Blood, Urine Negative (Negative); Clarity Clear (Clear); Glucose, Urine (Dipstick) Normal (Negative); Leukocyte 25 Leu/uL (Negative); Nitrite Negative (Negative); Protein, Urine (Dipstick) Negative (Neg-Trace); Urobilinogen Normal mg/dL (Less than 2); WBC/HPF 0-3 HPF (0-3)
[2019-06-01 22:02] LABS: Bacteria/HPF Rare-Few HPF (None Seen); Yeast-Budding None Seen HPF (None Seen)
--- NOTE | 2019-06-01 22:07 | CT ---
CT ABDOMEN AND PELVIS WITH IV CONTRAST: History: Abdominal pain, nausea, vomiting. Comparison: 05-14-2019 FINDINGS: Lung bases are unremarkable. A small hiatal hernia is again seen. The liver, spleen, pancreas, adrena l glands, and kidneys are unremarkable. No calcified gallstones are noted. No free air, free fluid, or lymphadenopathy is seen in the abdomen or pelvis. There are post op vigil es of appendectomy and lower lumbar spine surgery. There are vascular calcifications without evidence of aneurysmal dilatation of the abdominal aorta. Uterus is present. Degenerative changes in the hip joints bilaterally. Small bowel loops are not abnormally dilated. IMPRESSION: No acute process. POS: OFF
[2019-06-01] MEDS ORDERED: Ondansetron ODT 4 MG TAB SL PRN (23:00)
[2019-06-01] MEDS ORDERED: Ondansetron PF 4 MG/2 ML Vial IVP PRN (23:00)
[2019-06-01 23:40] LABS: Troponin I 0.099 ng/mL (< 0.028)
[2019-06-02] MEDS: Lactated Ringer's 1,000 ML IV SCH ×2 (00:05→05:31)
[2019-06-02 02:47] LABS: Troponin I 0.082 ng/mL (< 0.028)
[2019-06-02] MEDS ORDERED: Metoprolol Tartrate 5 MG/5 ML VIAL IVP SCH (05:15)
[2019-06-02] MEDS ORDERED: Lactated Ringer's 500 ML IV SCH (05:15)
[2019-06-02] MEDS ORDERED: Albuterol Sulfate 2.5 mg/3 ml Neb NEB PRN (07:25)
[2019-06-02] MEDS ORDERED: PROVENTIL INHALER 6.7 G (200 INHALATIONS) INH PRN (07:25)
[2019-06-02] MEDS ORDERED: Acetaminophen 650 MG Suppository PR PRN (07:25)
--- NOTE | 2019-06-02 08:43 | HP ---
PRIMARY CARE PROVIDER: Dr. Fowler. HISTORY OF PRESENT ILLNESS: The patient referred to the Hospitalist Service by [facility] for nausea and vomiting. It is pertinent to note that this patient has been admitted to the Hospitalist Service on 05/17/2019, 05/21/2019, 05/29/2019, and now 06/01/2019. Her symptoms are consistent with nausea and vomiting. Other symptoms vary. She states she cannot keep anything down, that she has been throwing up continuously since 3 p.m. yesterday. She denies using THC for 3 weeks. She states she gets left lower quadrant pain every time she eats. She uses a heating pad for that. She states she had a normal bowel movement yesterday. She has had no blood in her stools. No diarrhea. No blood in her emesis. No coffee-grounds emesis. PAST MEDICAL HISTORY: Nausea and vomiting for approximately 1 month, coronary artery disease post cardiac cath in the past, asthma, history of marijuana abuse, history of bowel obstruction, hypertension, dyslipidemia. PAST SURGICAL HISTORY: , appendectomy, lumbar spine surgery. FAMILY HISTORY: No inherited diseases. SOCIAL HISTORY: She denies marijuana for 3 weeks. Denies alcohol, drugs. Full code status. Her grandson, Pankaj, is her surrogate decision maker. ALLERGIES: NO KNOWN DRUG ALLERGIES. HOME MEDICATIONS: 1. Tramadol 50 mg p.o. q.6 hours p.r.n. 2. Ventolin inhaler one puff q.4 hours p.r.n. 3. Ranexa 500 mg p.o. b.i.d. 4. Lyrica 100 mg p.o. at bedtime. 5. Omeprazole 20 mg a day. 6. Fish oil. 7. Singulair 10 mg a day. 8. Metoprolol 50 mg twice a day. 9. Magnesium 250 mg a day. 10. Lisinopril 5 mg a day. 11. Breo Ellipta one puff daily. 12. Pepcid 20 mg in the morning. 13. She has recently been on Cefdinir for UTI. 14. Lipitor 20 mg a day. 15. Aspirin 81 mg a day. 16. Albuterol nebulizer 2.5 mg q.8 hours p.r.n. 17. Alprazolam 0.5 mg p.o. b.i.d. REVIEW OF SYSTEMS: GENERAL: She has hot flashes, sweats at night. She has had positional vertigo, lifelong. She has had no syncope. No documented fever. EYES: No double vision, blurred vision, flashing lights. EARS, NOSE, AND THROAT: No ear pain or drainage. No nasal bleeding. No trouble swallowing. CARDIAC: She had chest pain two days ago, left-sided, felt like squeezing in her chest from the right neck to her left chest to her left arm. No orthopnea. No paroxysmal nocturnal dyspnea. RESPIRATIONS: She states she has asthma. No recent wheezing. Coughs up yellow stuff. GASTROINTESTINAL: See present illness. GENITOURINARY: No hematuria, dysuria, or nocturia. MUSCULOSKELETAL: She states she has pain in her legs all the time due to arthritis. No swelling in her legs. No distinct muscle pain. NEUROLOGICAL: No strokes, seizures, or focal weakness. PSYCHIATRIC: No history of anxiety or depression. SKIN: No bruising, bleeding, or rash. HEME/LYMPH: No tender or swollen lymph nodes in axilla. Inguinal, or cervical area. PHYSICAL EXAMINATION: VITAL SIGNS: Blood pressure elevated 174/94, pulse 96, respirations 18, and O2 saturation 97% on room air. HEAD, EYES, EARS, NOSE, AND THROAT: Reveal pupils are equal, round, and reactive to light. Extraocular movements are intact. Sclerae are white. Tympanic membranes clear. Nose is clear. Oral mucous membranes are wet. NECK: Supple without jugular venous distention, adenopathy, or thyromegaly. CHEST: Clear to auscultation and percussion. HEART: Had regular rate and rhythm. First and second heart sounds are clear. There are no appreciated murmurs or gallops. ABDOMEN: Soft. Bowel sounds are normal. There is no hepatosplenomegaly. No mass. No rebound. No bruits. EXTREMITIES: Reveal no cyanosis, clubbing, or edema. PULSES: Carotid, radial, femoral and dorsalis pedis pulses intact. SKIN: Warm and dry with good skin turgor. HEME/LYMPH: No tender or swollen lymph nodes in axilla, inguinal, or cervical area. NEUROLOGICAL: Cranial nerves 2 through 12 are intact. Moves all extremities. Sensation intact. IMAGING STUDIES: Chest x-ray; no cardiomegaly, CHF, infiltrate, personally reviewed. CT scan of the abdomen showed no acute abnormality. EKG; regular sinus rhythm, sinus tachycardia, no ST-T abnormality, personally reviewed. LABORATORY DATA: Comprehensive metabolic profile; BUN is low, creatinine 0.69. Lytes balanced. Blood sugar 122. Liver function tests normal. Troponin 0.08, 0.099, 0.082. CBC; white count 8.2, hemoglobin 13.0, platelet count 388,000. Urine showed 4 to 6 red cells, no white cells, negative esterase, nitrite. No urine drug screen was performed. ADMITTING DIAGNOSES: 1. Nausea and vomiting for several weeks without clinical evidence of dehydration, electrolyte abnormality, prerenal azotemia. 2. Chest pain, history of cardiac cath with coronary artery disease. Troponins are elevated. I have reviewed old troponin, some are elevated, some are not. EKG is normal. 3. Abdominal pain with a benign abdominal exam. CT exam is normal. Lipase is normal. White cell count is normal. 4. Asthma. 5. Hypertension. 6. Dyslipidemia. PLAN: IV fluids. Cardiology consult. Urine drug screen. Serial lab. Job ID: [id number]
[2019-06-02] MEDS ORDERED: Aspirin 300 MG Suppository PR SCH (09:00)
[2019-06-02] MEDS: Enoxaparin Sodium 40 MG/0.4 ML SYRINGE SC SCH (09:19)
[2019-06-02] MEDS: Sodium Chloride 0.9% 1,000 ML IV SCH ×3 (09:19→22:45)
[2019-06-02] MEDS: Famotidine/PF 20 mg/2ml Vial SLOW IVP SCH ×2 (09:19→22:16)
[2019-06-02] MEDS: Metoprolol Tartrate 50 MG TAB PO SCH ×2 (09:20→22:44)
[2019-06-02] MEDS: Fish Oil 1,000 MG CAP PO SCH (09:20)
[2019-06-02 10:23] LABS: Amphetamine Not Detected (NotDetected); Barbiturates Screen Not Detected (NotDetected); Benzodiazepine Screen Detected (NotDetected); Cocaine Metabolite Screen Not Detected (NotDetected); Medtox Control Line Valid? VALID (VALID); Medtox Reader # READER 4; Methadone Not Detected (NotDetected); Methamphetamine Not Detected (NotDetected); Opiate Screen Not Detected (NotDetected); Oxycodone Screen Not Detected (NotDetected); Phencyclidine (PCP) Not Detected (NotDetected); THC/Cannabinoid Screen Detected (NotDetected); Tricyclic Screen Not Detected (NotDetected)
--- NOTE | 2019-06-02 15:34 | PDOC.EVN ---
Event Note - Event Note Event Note: pos for THC. she insists she has had none in 3 weeks. admits to daily for 35 yrs. now taking fluids, wants diet.
--- NOTE | 2019-06-02 17:31 | PDOC.EVN ---
Event Note - Event Note Event Note: Cardiology recommends stress minerva, if unchanged from previous- no cath. if new defect- likely cath
[2019-06-02] MEDS: Mometasone/Formoterol 120 PUFF INHALER INH SCH (18:04)
[2019-06-02] MEDS ORDERED: Acetaminophen 325 MG TAB PO PRN (18:15)
[2019-06-02] MEDS: Lisinopril 2.5 MG TAB PO SCH (22:44)
[2019-06-02] MEDS: Atorvastatin Calcium 20 MG TAB PO SCH (22:44)
[2019-06-02] MEDS ORDERED: ALPRAZolam 0.5 MG TAB PO SCH (23:00)
[2019-06-02] MEDS: Pregabalin 50 MG CAP PO SCH (23:11)
[2019-06-02] MEDS: Acetaminophen 325 MG TAB PO PRN (23:11)
[2019-06-03] MEDS: Sodium Chloride 0.9% 1,000 ML IV SCH ×2 (05:23→14:57)
[2019-06-03 05:36] LABS: Anion Gap 10 mmol/L (10-20); BUN (Urea Nitrogen) Less than 4 mg/dL (9.8-20.1); Calc. Creatinine Clearance 108 mL/min (70-130); Calcium 8.4 mg/dL (7.8-10.44); Carbon Dioxide 24 mmol/L (23-31); Chloride 109 mmol/L (98-107); Estimated GFR-MDRD Greater than 90; Glucose 81 mg/dL (80-115); Potassium 3.3 mmol/L (3.5-5.1); Sodium 140 mmol/L (136-145)
[2019-06-03 06:01] LABS: Band 1 % (5-11); Eosinophils 1 % (0-10); Hemoglobin 11.3 g/dL (12.0-16.0); Lymphocytes 54 % (21-51); MDiff Complete? YES; Mean Corpuscular HGB CONC 33.5 g/dL (32.0-36.0); Mean Corpuscular Hemoglobin 34.4 pg (27.0-31.0); Mean Platelet Volume 7.1 fL (7.4-10.4); Monocytes 8 % (0-10); Neutrophil 36 % (42-75); Platelet Count 329 thou/uL (130-400); RBC Distribution Width 11.5 % (11.5-14.5); Red Blood Cell (RBC) Count 3.28 mill/uL (4.20-5.40); White Blood Cell (WBC) Count 7.8 thou/uL (4.8-10.8)
[2019-06-03] MEDS: Mometasone/Formoterol 120 PUFF INHALER INH SCH ×2 (06:28→18:07)
--- NOTE | 2019-06-03 07:25 | CON ---
DATE OF CONSULTATION: 06/02/2019 REASON FOR CONSULTATION: Atypical chest pain. HISTORY OF PRESENT ILLNESS: Ms. Nassar is a 59-year-old woman whom I have seen and evaluated in the past. She has a previous history of [id number] coronary artery disease. She underwent coronary angiography in 2016, where she had severe stenosis ostial diagonal branch and moderate stenosis of the LAD. She has had recent multiple hospitalizations for nausea and vomiting. Her symptoms began with abdominal discomfort noted in the left lower quadrant. She then states she has pain in her chest after retching. No other associated ameliorating or suspicion factors present. PAST MEDICAL HISTORY: CAD as above, anxiety, marijuana use, hyperlipidemia, asthma, hypertension, spinal stenosis, CAD, and obstructive sleep apnea. FAMILY HISTORY: Negative for CAD. SOCIAL HISTORY: No current tobacco or alcohol use. Positive marijuana use. REVIEW OF SYSTEMS: A 10-point review of systems is reviewed as above, otherwise negative. PHYSICAL EXAMINATION: GENERAL: The patient is a pleasant woman, who is in no acute distress. The patient appears their stated age. VITAL SIGNS: Blood pressure 106/55, pulse 76, temperature afebrile. NEUROLOGIC: The patient is alert and oriented x3 with no focal neurologic deficits. HEENT: Sclerae without icterus. Mouth has moist mucous membranes with normal pallor. NECK: No JVD. Carotid upstroke brisk. No bruits bilaterally. LUNGS: Clear to auscultation with unlabored respirations. BACK: No scoliosis or kyphosis. CARDIAC: Regular rate and rhythm with normal S1 and S2. No S3 or S4 noted. No significant rubs, murmurs, thrills, or gallops noted throughout the precordium. PMI is not displaced. There is no parasternal heave. ABDOMEN: Soft, nontender, nondistended. No peritoneal signs present. No hepatosplenomegaly. No abnormal striae. EXTREMITIES: 2+ femoral and 2+ dorsalis pedis pulses. No cyanosis, clubbing, or edema. SKIN: No gross abnormalities. PERTINENT LABORATORY DATA: Hemoglobin 11.3, BUN 4, creatinine 0.57, peak troponin 0.09. IMPRESSION: 1. Atypical chest pain. 2. Coronary artery disease. RECOMMENDATIONS: Reviewed her previous angio in addition to her previous stress test. Her last stress test was three years ago. She did have ischemia noted in the mid anterior wall, suggesting stenosis to the diagonal branch. I would recommend repeat noninvasive stress study. If she has similar findings, we then treat medically. If findings suggesting LAD stenosis, would then proceed with coronary angiography. Otherwise, I have no further recommendations. Job ID: [id number]
[2019-06-03] MEDS ORDERED: Aspirin 325 MG TAB PO SCH (09:00)
[2019-06-03] MEDS: Ondansetron PF 4 MG/2 ML Vial IVP PRN ×2 (10:43→17:52)
[2019-06-03] MEDS ORDERED: Regadenoson 0.4 MG/5 ML SYRINGE ONE (12:14)
[2019-06-03] MEDS: Enoxaparin Sodium 40 MG/0.4 ML SYRINGE SC SCH (13:42)
[2019-06-03] MEDS: Fish Oil 1,000 MG CAP PO SCH (13:42)
[2019-06-03] MEDS: Famotidine/PF 20 mg/2ml Vial SLOW IVP SCH (13:50)
[2019-06-03] MEDS: Metoprolol Tartrate 50 MG TAB PO SCH ×2 (13:50→19:53)
--- NOTE | 2019-06-03 14:05 | NM ---
NUCLEAR MEDICINE CARDIAC SPECT WITH EJECTION FRACTION AND WALL MOTION: HISTORY: Chest pain. History of coronary artery disease. History of cardiac cath. TECHNIQUE: Lexiscan sestamibi study. Patient was injected with 32 mCi technetium-99m sestamibi intravenously for stress images and patient was injected with 11 mCi technetium-99m sestamibi intravenously for rest ing images. FINDINGS: Multiple scan images were performed in short axis, vertical long axis, and horizontal long axis. No s can evidence for overt ischemia or infarct. TID: 0.82 LHR: 0.35 EDV: 42 mL EF: 72% MYOCARDIAL PERFUSION WALL MOTION: Wall motion is unremarkable. IMPRESSION: Unremarkable cardiac SPECT with ejection fraction and wall motion. POS: HARPAL
[2019-06-03] MEDS ORDERED: Magnesium 2 GM/50 ML 2 GM in Premix Bag 1 BAG IVPB SCH (16:30)
[2019-06-03] MEDS ORDERED: Potassium Chloride 40 MEQ in Sodium Chloride 0.45% 1,000 ML IV SCH (16:30)
[2019-06-03] MEDS: Acetaminophen 325 MG TAB PO PRN (17:51)
[2019-06-03] MEDS ORDERED: diphenhydrAMINE 25 MG CAP PO PRN (18:07)
[2019-06-03] MEDS ORDERED: diphenhydrAMINE 50 MG/ML VIAL IVP PRN (18:07)
[2019-06-03] MEDS: Lisinopril 2.5 MG TAB PO SCH (19:52)
[2019-06-03] MEDS: Pantoprazole 40 MG VIAL IVP SCH (19:52)
[2019-06-03] MEDS: Atorvastatin Calcium 20 MG TAB PO SCH (19:53)
[2019-06-03] MEDS: ALPRAZolam 0.25 MG TAB PO PRN (19:59)
[2019-06-03] MEDS: Pregabalin 50 MG CAP PO SCH (21:22)
--- NOTE | 2019-06-03 23:24 | PDOC.HOSPP ---
- Subjective Encounter Date: 06/03/19 Encounter Time: 16:30 Subjective: Patient seen and examined CP/Nausea. Still has significant nausea. No CP. No overnight events - Objective Vital Signs & Weight: Vital Signs (12 hours) Temp Pulse Resp BP BP Pulse Ox 06/03/19 19:52 109 H 136/90 06/03/19 19:00 99.0 F 109 H 18 136/90 98 06/03/19 18:07 96 06/03/19 15:40 98.4 F 127 H 18 143/96 H 96 Weight Weight 146 lb I&O: 06/02/19 06/03/19 06/04/19 06:59 06:59 06:59 Intake Total 1000 3180 1060 Output Total 1350 50 Balance 1000 1830 1010 Result Diagrams: 06/03/19 05:04 06/04/19 04:58 EKG Reviewed by me: Yes ([facility]) Hospitalist ROS - Review of Systems Respiratory: denies: cough, dry, shortness of breath, hemoptysis, SOB with excertion, pleuritic pain, sputum, wheezing, other Gastrointestinal: reports: nausea, vomiting. denies: abdominal pain, diarrhea, constipation, melena, hematochezia, other - Medication Medications: Active Medications Generic Name Dose Route Start Last Admin Trade Name Freq PRN Reason Stop Dose Admin Acetaminophen 650 mg 06/02/19 19:41 06/03/19 17:51 Tylenol PO 650 mg Q4H PRN Administration Headache/Fever or Pain Alprazolam 0.25 mg 06/03/19 18:17 06/03/19 19:59 Xanax PO 0.25 mg QIDPRN PRN Administration Anxiety Atorvastatin Calcium 20 mg 06/02/19 21:00 06/03/19 19:53 Lipitor PO 20 mg HS SARAVANAN Administration Diphenhydramine HCl 25 mg 06/03/19 18:07 06/03/19 21:24 Benadryl IVP 25 mg Q6H PRN Administration GI Cramping Enoxaparin Sodium 40 mg 06/02/19 09:00 06/03/19 13:42 Lovenox SC Not Given 0900 SARAVANAN Fish Oil 1,000 mg 06/02/19 09:00 06/03/19 13:42 Fish Oil PO Not Given DAILY SARAVANAN Potassium Chloride 40 meq/ 1,020 mls @ 100 mls/hr 06/03/19 16:30 06/03/19 17: 51 Sodium Chloride IV 06/04/19 02:41 1,020 mls .[id number] SARAVANAN Administration Lisinopril 5 mg 06/02/19 21:00 06/03/19 19:52 Zestril PO 5 mg HS SARAVANAN Administration Metoprolol Tartrate 50 mg 06/02/19 09:00 06/03/19 19:53 Lopressor PO 50 mg BID SARAVANAN Administration Mometasone Furoate/Formoterol Fumar 1 puff 06/02/19 18:30 06/03/19 18:07 Dulera 200 Mcg/5 Mcg Inhaler INH 1 puff BID-RT SARAVANAN Administration Ondansetron HCl 4 mg 06/02/19 07:25 06/03/19 17:52 Zofran IVP 4 mg Q6H PRN Administration Nausea/Vomiting Pantoprazole Sodium 40 mg 06/03/19 21:00 06/03/19 19:52 Protonix IVP 40 mg Q12HR SARAVANAN Administration Pregabalin 100 mg 06/02/19 21:00 06/03/19 21:22 Lyrica PO 100 mg HS SARAVANAN Administration - Exam General - other findings: Mild distress due to nausea Heart: no gallops, no rubs Heart - other findings: tachycardic Respiratory: no wheezes, no ronchi Gastrointestinal: soft, non-tender, normal bowel sounds Extremities: no cyanosis Neurological: no new deficit Hosp A/P - Plan DVT proph w/SCDs CP N/V HTN h/o Cannabis abuse PLAN: Stress test - no reversible ischemia Cont IVF Cont Metoprolol Counselled to quit Cannabis Cont antiemetics
[2019-06-04 05:41] LABS: Albumin 3.2 g/dL (3.4-4.8); Anion Gap 11 mmol/L (10-20); BUN (Urea Nitrogen) 5 mg/dL (9.8-20.1); Calc. Creatinine Clearance 101 mL/min (70-130); Calcium 8.5 mg/dL (7.8-10.44); Carbon Dioxide 24 mmol/L (23-31); Chloride 107 mmol/L (98-107); Estimated GFR-MDRD Greater than 90; Glucose 81 mg/dL (80-115); Magnesium 1.9 mg/dL (1.6-2.6); Phosphorus 2.8 mg/dL (2.3-4.7); Potassium 3.7 mmol/L (3.5-5.1); Sodium 138 mmol/L (136-145)
[2019-06-04] MEDS: Mometasone/Formoterol 120 PUFF INHALER INH SCH ×2 (07:18→19:11)
[2019-06-04] MEDS: Aspirin 81 mg Enteric Coated Tablet PO SCH (09:02)
[2019-06-04] MEDS: Metoprolol Tartrate 50 MG TAB PO SCH ×2 (09:03→20:40)
[2019-06-04] MEDS: Enoxaparin Sodium 40 MG/0.4 ML SYRINGE SC SCH (09:03)
[2019-06-04] MEDS: Fish Oil 1,000 MG CAP PO SCH (09:03)
[2019-06-04] MEDS: ALPRAZolam 0.25 MG TAB PO PRN ×2 (09:04→20:42)
[2019-06-04] MEDS: Pantoprazole 40 MG VIAL IVP SCH ×2 (15:15→20:40)
[2019-06-04] MEDS ORDERED: diphenhydrAMINE 25 MG CAP PO PRN (20:21)
[2019-06-04] MEDS: Pregabalin 50 MG CAP PO SCH (20:39)
[2019-06-04] MEDS: Lisinopril 2.5 MG TAB PO SCH (20:39)
[2019-06-04] MEDS: Atorvastatin Calcium 20 MG TAB PO SCH (20:40)
[2019-06-04 21:23] LABS: Bacteria/HPF 3+ HPF (None Seen); Bilirubin Negative (Negative); Blood, Urine Trace (Negative); Clarity Turbid (Clear); Glucose, Urine (Dipstick) Normal (Negative); Leukocyte 500 Leu/uL (Negative); Mucous/LPF Rare LPF (<2+); Nitrite Negative (Negative); Protein, Urine (Dipstick) Negative (Neg-Trace); Squamous Epithelial 0-3 HPF (0-3); Urobilinogen Normal mg/dL (Less than 2); WBC/HPF Greater than 50 HPF (0-3)
[2019-06-04 21:26] LABS: Urine Culture Reflex Yes Yes
[2019-06-04] MEDS: cefTRIAXone\\ROCEPHIN 2 GM in Sodium Chloride 0.9% 100 ML IVPB SCH (23:35)
--- NOTE | 2019-06-04 23:54 | PDOC.HOSPP ---
- Subjective Encounter Date: 06/04/19 Encounter Time: 19:00 Subjective: Patient seen and examined for N/Abd pain. Nausea improving. Less abd cramping. Tolerating liqd diet. No other complaints. No overnight events - Objective Vital Signs & Weight: Vital Signs (12 hours) Temp Pulse Resp BP Pulse Ox 06/04/19 23:41 98.6 F 75 20 105/63 98 06/04/19 19:46 99.1 F 79 16 110/59 L 98 06/04/19 19:11 85 16 95 06/04/19 12:28 97.7 F 76 15 115/66 96 Weight Weight 146 lb I&O: 06/03/19 06/04/19 06/05/19 06:59 06:59 06:59 Intake Total 3180 2200 600 Output Total 1350 1050 Balance 1830 1150 600 Result Diagrams: 06/03/19 05:04 06/04/19 04:58 EKG Reviewed by me: Yes ([facility]) Hospitalist ROS - Review of Systems Respiratory: denies: cough, dry, shortness of breath, hemoptysis, SOB with excertion, pleuritic pain, sputum, wheezing, other Cardiovascular: denies: chest pain, palpitations, orthopnea, paroxysmal noc. dyspnea, edema, light headedness, other - Medication Medications: Active Medications Generic Name Dose Route Start Last Admin Trade Name Freq PRN Reason Stop Dose Admin Acetaminophen 650 mg 06/02/19 19:41 06/03/19 17:51 Tylenol PO 650 mg Q4H PRN Administration Headache/Fever or Pain Alprazolam 0.25 mg 06/03/19 18:17 06/04/19 20:42 Xanax PO 0.25 mg QIDPRN PRN Administration Anxiety Aspirin 81 mg 06/04/19 09:00 06/04/19 09:02 Ecotrin PO 81 mg DAILY SARAVANAN Administration Atorvastatin Calcium 20 mg 06/02/19 21:00 06/04/19 20:40 Lipitor PO 20 mg HS SARAVANAN Administration Diphenhydramine HCl 25 mg 06/03/19 18:07 06/03/19 21:24 Benadryl IVP 25 mg Q6H PRN Administration GI Cramping Diphenhydramine HCl 25 mg 06/03/19 18:07 06/04/19 20:43 Benadryl PO 25 mg Q6H PRN Administration GI cramping Enoxaparin Sodium 40 mg 06/02/19 09:00 06/04/19 09:03 Lovenox SC 40 mg 0900 SARAVANAN Administration Fish Oil 1,000 mg 06/02/19 09:00 06/04/19 09:03 Fish Oil PO 1,000 mg DAILY SARAVANAN Administration Ceftriaxone Sodium 2 gm/ 100 mls @ 200 mls/hr 06/04/19 23:00 06/04/19 23:35 Sodium Chloride IVPB 100 mls Q24HR SARAVANAN Administration Lisinopril 5 mg 06/02/19 21:00 06/04/19 20:39 Zestril PO 5 mg HS SARAVANAN Administration Metoprolol Tartrate 50 mg 06/02/19 09:00 06/04/19 20:40 Lopressor PO 50 mg BID SARAVANAN Administration Mometasone Furoate/Formoterol Fumar 1 puff 06/02/19 18:30 06/04/19 19:11 Dulera 200 Mcg/5 Mcg Inhaler INH 1 puff BID-RT SARAVANAN Administration Ondansetron HCl 4 mg 06/02/19 07:25 06/03/19 17:52 Zofran IVP 4 mg Q6H PRN Administration Nausea/Vomiting Pantoprazole Sodium 40 mg 06/03/19 21:00 06/04/19 20:40 Protonix IVP 40 mg Q12HR SARAVANAN Administration Pregabalin 100 mg 06/02/19 21:00 06/04/19 20:39 Lyrica PO 100 mg HS SARAVANAN Administration - Exam General Appearance: NAD Neck: supple, no JVD Heart: RRR, no gallops Respiratory: no wheezes, no rales, no ronchi Gastrointestinal: soft, no guarding, no rigidity, tender to palpation (mild) Hosp A/P - Plan DVT proph w/SCDs CP No reversible ischemia on stress test Dysuria N/V - improving HTN h/o Cannabis abuse PLAN: UA - cultures if positive Cont IVF with antiemetics Cont Metoprolol Counselled to quit Cannabis Ambulate DC in 24 hr if stable
[2019-06-05] MEDS: Mometasone/Formoterol 120 PUFF INHALER INH SCH ×2 (06:56→20:30)
[2019-06-05] MEDS: Enoxaparin Sodium 40 MG/0.4 ML SYRINGE SC SCH (09:31)
[2019-06-05] MEDS: Aspirin 81 mg Enteric Coated Tablet PO SCH (09:31)
[2019-06-05] MEDS: Fish Oil 1,000 MG CAP PO SCH (09:32)
[2019-06-05] MEDS: Saccharomyces boulardii 250 MG CAP PO SCH (09:32)
[2019-06-05] MEDS: Metoprolol Tartrate 50 MG TAB PO SCH ×2 (09:32→20:49)
[2019-06-05] MEDS: Acetaminophen 325 MG TAB PO PRN ×2 (09:32→20:53)
[2019-06-05] MEDS: ALPRAZolam 0.25 MG TAB PO PRN ×2 (09:32→20:53)
[2019-06-05] MEDS: Pantoprazole 40 MG VIAL IVP SCH (09:32)
[2019-06-05] MEDS ORDERED: Dicyclomine 10 MG CAP PO PRN (10:42)
[2019-06-05] MEDS ORDERED: Bisacodyl 10 MG SUPP PR PRN (10:57)
[2019-06-05] MEDS: Polyethylene Glycol 3350 17 GM Packet PO PRN (14:28)
--- NOTE | 2019-06-05 20:40 | PDOC.HOSPP ---
- Subjective Encounter Date: 06/05/19 Encounter Time: 11:00 Subjective: Patient seen and examined for recurrent N/V. Abd cramping. Nausea improving. No other complaints. No overnight events - Objective Vital Signs & Weight: Vital Signs (12 hours) Temp Pulse Resp BP Pulse Ox 06/05/19 19:11 99.2 F 70 16 109/63 99 06/05/19 15:30 97.6 F 71 16 126/58 L 100 06/05/19 11:24 98.4 F 78 18 90/58 L 96 Weight Weight 146 lb I&O: 06/04/19 06/05/19 06/06/19 06:59 06:59 06:59 Intake Total 2200 600 960 Output Total 1050 500 Balance 1150 600 460 Result Diagrams: 06/03/19 05:04 06/04/19 04:58 EKG Reviewed by me: Yes ([facility]) Hospitalist ROS - Review of Systems Respiratory: denies: cough, dry, shortness of breath, hemoptysis, SOB with excertion, pleuritic pain, sputum, wheezing, other Cardiovascular: denies: chest pain, palpitations, orthopnea, paroxysmal noc. dyspnea, edema, light headedness, other - Medication Medications: Active Medications Generic Name Dose Route Start Last Admin Trade Name Freq PRN Reason Stop Dose Admin Acetaminophen 650 mg 06/02/19 19:41 06/05/19 09:32 Tylenol PO 650 mg Q4H PRN Administration Headache/Fever or Pain Alprazolam 0.25 mg 06/03/19 18:17 06/05/19 09:32 Xanax PO 0.25 mg QIDPRN PRN Administration Anxiety Aspirin 81 mg 06/04/19 09:00 06/05/19 09:31 Ecotrin PO 81 mg DAILY SARAVANAN Administration Atorvastatin Calcium 20 mg 06/02/19 21:00 06/04/19 20:40 Lipitor PO 20 mg HS SARAVANAN Administration Bisacodyl 10 mg 06/05/19 10:57 06/05/19 12:15 Dulcolax DE 10 mg DAILYPRN PRN Administration Constipation Diphenhydramine HCl 25 mg 06/03/19 18:07 06/03/19 21:24 Benadryl IVP 25 mg Q6H PRN Administration GI Cramping Enoxaparin Sodium 40 mg 06/02/19 09:00 06/05/19 09:31 Lovenox SC 40 mg 0900 SARAVANAN Administration Fish Oil 1,000 mg 06/02/19 09:00 06/05/19 09:32 Fish Oil PO 1,000 mg DAILY SARAVANAN Administration Ceftriaxone Sodium 2 gm/ 100 mls @ 200 mls/hr 06/04/19 23:00 06/04/19 23:35 Sodium Chloride IVPB 100 mls Q24HR SARAVANAN Administration Lisinopril 5 mg 06/02/19 21:00 06/04/19 20:39 Zestril PO 5 mg HS SARAVANAN Administration Metoprolol Tartrate 50 mg 06/02/19 09:00 06/05/19 09:32 Lopressor PO 50 mg BID SARAVANAN Administration Mometasone Furoate/Formoterol Fumar 1 puff 06/02/19 18:30 06/05/19 20:30 Dulera 200 Mcg/5 Mcg Inhaler INH 1 puff BID-RT SARAVANAN Administration Ondansetron HCl 4 mg 06/02/19 07:25 06/03/19 17:52 Zofran IVP 4 mg Q6H PRN Administration Nausea/Vomiting Polyethylene Glycol 17 gm 06/05/19 10:42 06/05/19 14:28 Miralax PO 17 gm DAILY PRN Administration Constipation Pregabalin 100 mg 06/02/19 21:00 06/04/19 20:39 Lyrica PO 100 mg HS SARAVANAN Administration Saccharomyces Boulardii 250 mg 06/05/19 09:00 06/05/19 09:32 Florastor PO 250 mg DAILY SARAVANAN Administration - Exam General Appearance: NAD Neck: supple, no JVD Heart: RRR, no gallops Respiratory: no wheezes, no ronchi Gastrointestinal: soft, non-distended, normal bowel sounds, no guarding, no rigidity, tender to palpation (gen) Hosp A/P - Plan DVT proph w/lovenox, DVT proph w/SCDs CP - ACS ruled out No reversible ischemia on stress test E coli UTI N/V - improving HTN h/o Cannabis abuse PLAN: Add Bentyl Change diet to GI soft I d/w Dr Hearn - who recommended symptomatic Rx Cont Metoprolol Cont other meds as above Counselled to quit Cannabis DC in 24 hr if stable
[2019-06-05] MEDS: Pregabalin 50 MG CAP PO SCH (20:47)
[2019-06-05] MEDS: Lisinopril 2.5 MG TAB PO SCH (20:48)
[2019-06-05] MEDS: Atorvastatin Calcium 20 MG TAB PO SCH (20:49)
[2019-06-05] MEDS: Melatonin 3 MG TAB PO PRN (20:53)
[2019-06-05] MEDS: Zolpidem Tartrate 5 MG TAB PO PRN (20:53)
[2019-06-05] MEDS: cefTRIAXone\\ROCEPHIN 2 GM in Sodium Chloride 0.9% 100 ML IVPB SCH (22:18)
[2019-06-06] MEDS: Mometasone/Formoterol 120 PUFF INHALER INH SCH ×2 (06:48→20:31)
[2019-06-06] MEDS: Saccharomyces boulardii 250 MG CAP PO SCH (09:22)
[2019-06-06] MEDS: Enoxaparin Sodium 40 MG/0.4 ML SYRINGE SC SCH (09:22)
[2019-06-06] MEDS: Metoprolol Tartrate 50 MG TAB PO SCH ×2 (09:23→22:09)
[2019-06-06] MEDS: Aspirin 81 mg Enteric Coated Tablet PO SCH (09:23)
[2019-06-06] MEDS: Fish Oil 1,000 MG CAP PO SCH (09:23)
[2019-06-06] MEDS: ALPRAZolam 0.25 MG TAB PO PRN ×2 (09:25→22:18)
[2019-06-06] MEDS: Polyethylene Glycol 3350 17 GM Packet PO PRN (13:51)
--- NOTE | 2019-06-06 15:00 | PDOC.HOSPP ---
- Subjective Encounter Date: 06/06/19 Encounter Time: 14:58 Subjective: Ms. Nassar was seen today in follow-up of Abdominal pain. She says the pain has improved, but she still notes some difficulty in the left lower abdomen. - Objective Vital Signs & Weight: Vital Signs (12 hours) Temp Pulse Resp BP Pulse Ox 06/06/19 07:17 98.4 F 89 16 103/55 L 95 06/06/19 06:48 84 12 06/06/19 04:00 98.0 F 84 18 125/60 99 Weight Weight 142 lb 3 oz I&O: 06/05/19 06/06/19 06/07/19 06:59 06:59 06:59 Intake Total 600 960 Output Total 500 Balance 600 460 Result Diagrams: 06/03/19 05:04 06/04/19 04:58 Hospitalist ROS - Medication Medications: Active Medications Generic Name Dose Route Start Last Admin Trade Name Freq PRN Reason Stop Dose Admin Acetaminophen 650 mg 06/02/19 19:41 06/05/19 20:53 Tylenol PO 650 mg Q4H PRN Administration Headache/Fever or Pain Alprazolam 0.25 mg 06/03/19 18:17 06/06/19 09:25 Xanax PO 0.25 mg QIDPRN PRN Administration Anxiety Aspirin 81 mg 06/04/19 09:00 06/06/19 09:23 Ecotrin PO 81 mg DAILY SARAVANAN Administration Atorvastatin Calcium 20 mg 06/02/19 21:00 06/05/19 20:49 Lipitor PO 20 mg HS SARAVANAN Administration Bisacodyl 10 mg 06/05/19 10:57 06/05/19 12:15 Dulcolax MA 10 mg DAILYPRN PRN Administration Constipation Diphenhydramine HCl 25 mg 06/03/19 18:07 06/03/19 21:24 Benadryl IVP 25 mg Q6H PRN Administration GI Cramping Enoxaparin Sodium 40 mg 06/02/19 09:00 06/06/19 09:22 Lovenox SC 40 mg 0900 SARAVANAN Administration Fish Oil 1,000 mg 06/02/19 09:00 06/06/19 09:23 Fish Oil PO 1,000 mg DAILY SARAVANAN Administration Lisinopril 5 mg 06/02/19 21:00 06/05/19 20:48 Zestril PO 5 mg HS SARAVANAN Administration Melatonin 3 mg 06/04/19 20:21 06/05/19 20:53 Melatonin PO 3 mg HS PRN Administration Insomnia Metoprolol Tartrate 50 mg 06/02/19 09:00 06/06/19 09:23 Lopressor PO 50 mg BID SARAVANAN Administration Mometasone Furoate/Formoterol Fumar 1 puff 06/02/19 18:30 06/06/19 06:48 Dulera 200 Mcg/5 Mcg Inhaler INH 1 puff BID-RT SARAVANAN Administration Ondansetron HCl 4 mg 06/02/19 07:25 06/03/19 17:52 Zofran IVP 4 mg Q6H PRN Administration Nausea/Vomiting Pantoprazole Sodium 40 mg 06/06/19 09:00 06/06/19 09:22 Protonix PO 40 mg DAILY SARAVANAN Administration Polyethylene Glycol 17 gm 06/05/19 10:42 06/06/19 13:51 Miralax PO 17 gm DAILY PRN Administration Constipation Pregabalin 100 mg 06/02/19 21:00 06/05/19 20:47 Lyrica PO 100 mg HS SARAVANAN Administration Saccharomyces Boulardii 250 mg 06/05/19 09:00 06/06/19 09:22 Florastor PO 250 mg DAILY SARAVANAN Administration Sodium Chloride 10 ml 06/05/19 21:00 06/06/19 09:23 Flush - Normal Saline IVF 10 ml Q12HR SARAVANAN Administration Zolpidem Tartrate 5 mg 06/02/19 07:25 06/05/19 20:53 Ambien PO 5 mg HSPRN PRN Administration Insomnia - Exam Eye: PERRL Heart: RRR, no murmur, no gallops, no rubs, normal peripheral pulses Respiratory: CTAB, no wheezes, no rales, no ronchi, normal chest expansion, no tachypnea, normal percussion Gastrointestinal: soft, non-distended, normal bowel sounds, no palpable masses, no hepatomegaly, tender to palpation (+ mild left lower quadrant tenderness) Extremities: no cyanosis, 1+ LE edema Hosp A/P (1) UTI (urinary tract infection) Status: Acute (2) Abdominal pain Code(s): R10.9 - UNSPECIFIED ABDOMINAL PAIN Status: Acute (3) Osteoarthritis Code(s): M19.90 - UNSPECIFIED OSTEOARTHRITIS, UNSPECIFIED SITE Status: Acute (4) Dyslipidemia Code(s): E78.5 - HYPERLIPIDEMIA, UNSPECIFIED Status: Chronic (5) GERD (gastroesophageal reflux disease) Code(s): K21.9 - GASTRO-ESOPHAGEAL REFLUX DISEASE WITHOUT ESOPHAGITIS Status: Chronic (6) Hypertension Code(s): I10 - ESSENTIAL (PRIMARY) HYPERTENSION Status: Chronic - Plan * Abdominal pain- ? etiology- this may be due to constipation * UTI- urine culture is growing E. Coli. She is symptomatic with this, with dysuria for the past 4-5 days. Will change her antibiotics to Meropenem, and consult ID * She tells me she has had a complete Urologic work-up in the past, and is currently seeing Dr. Pradhan. She was told she did not have any problems which should lead to recurrent UTI's * HTN- blood pressure is stable * OA- stable
[2019-06-06] MEDS: Lisinopril 2.5 MG TAB PO SCH (22:06)
[2019-06-06] MEDS: Pregabalin 50 MG CAP PO SCH (22:07)
[2019-06-06] MEDS: Atorvastatin Calcium 20 MG TAB PO SCH (22:08)
[2019-06-06] MEDS: Melatonin 3 MG TAB PO PRN (22:18)
[2019-06-06] MEDS: Zolpidem Tartrate 5 MG TAB PO PRN (22:18)
[2019-06-06] MEDS: MEROPENEM 1 GM/50 ML 1 GM in Premix Bag 1 BAG IVPB SCH (22:19)
[2019-06-07 05:25] VITALS: BMI 26.4
[2019-06-07] MEDS: MEROPENEM 1 GM/50 ML 1 GM in Premix Bag 1 BAG IVPB SCH ×3 (06:30→21:48)
[2019-06-07] MEDS: Mometasone/Formoterol 120 PUFF INHALER INH SCH ×2 (08:46→18:39)
[2019-06-07] MEDS: Aspirin 81 mg Enteric Coated Tablet PO SCH (08:56)
[2019-06-07] MEDS: Saccharomyces boulardii 250 MG CAP PO SCH (08:56)
[2019-06-07] MEDS: Metoprolol Tartrate 50 MG TAB PO SCH ×2 (08:56→21:47)
[2019-06-07] MEDS: Enoxaparin Sodium 40 MG/0.4 ML SYRINGE SC SCH (08:56)
[2019-06-07] MEDS: Fish Oil 1,000 MG CAP PO SCH (08:56)
[2019-06-07] MEDS: ALPRAZolam 0.25 MG TAB PO PRN ×2 (08:56→21:47)
--- NOTE | 2019-06-07 14:36 | PDOC.HOSPP ---
- Subjective Encounter Date: 06/07/19 Encounter Time: 14:35 Subjective: Ms. Nassar was seen today in follow-up of UTI. and abdominal pain. She says the abdominal pain has improved. She only has a little pain in the left lower quadrant now. - Objective Vital Signs & Weight: Vital Signs (12 hours) Temp Pulse Resp BP Pulse Ox 06/07/19 11:55 97.9 F 76 20 109/68 97 06/07/19 08:46 80 16 06/07/19 07:35 98.2 F 80 20 124/70 95 06/07/19 05:15 98.1 F 76 16 97/52 L 95 Weight Weight 139 lb 11.2 oz I&O: 06/06/19 06/07/19 06/08/19 06:59 06:59 06:59 Intake Total 960 1080 480 Output Total 500 550 Balance 460 530 480 Result Diagrams: 06/03/19 05:04 06/04/19 04:58 Hospitalist ROS - Medication Medications: Active Medications Generic Name Dose Route Start Last Admin Trade Name Freq PRN Reason Stop Dose Admin Acetaminophen 650 mg 06/02/19 19:41 06/05/19 20:53 Tylenol PO 650 mg Q4H PRN Administration Headache/Fever or Pain Alprazolam 0.25 mg 06/03/19 18:17 06/07/19 08:56 Xanax PO 0.25 mg QIDPRN PRN Administration Anxiety Aspirin 81 mg 06/04/19 09:00 06/07/19 08:56 Ecotrin PO 81 mg DAILY SARAVANAN Administration Atorvastatin Calcium 20 mg 06/02/19 21:00 06/06/19 22:08 Lipitor PO 20 mg HS SARAVANAN Administration Bisacodyl 10 mg 06/05/19 10:57 06/05/19 12:15 Dulcolax HI 10 mg DAILYPRN PRN Administration Constipation Diphenhydramine HCl 25 mg 06/03/19 18:07 06/03/19 21:24 Benadryl IVP 25 mg Q6H PRN Administration GI Cramping Enoxaparin Sodium 40 mg 06/02/19 09:00 06/07/19 08:56 Lovenox SC 40 mg 0900 SARAVANAN Administration Fish Oil 1,000 mg 06/02/19 09:00 06/07/19 08:56 Fish Oil PO 1,000 mg DAILY SARAVANAN Administration Meropenem 1 gm/ Device 50 mls @ 100 mls/hr 06/06/19 22:00 06/07/19 13:34 IVPB 50 mls Q8HR SARAVANAN Administration Lisinopril 5 mg 06/02/19 21:00 06/06/19 22:06 Zestril PO 5 mg HS SARAVANAN Administration Melatonin 3 mg 06/04/19 20:21 06/06/19 22:18 Melatonin PO 3 mg HS PRN Administration Insomnia Metoprolol Tartrate 50 mg 06/02/19 09:00 06/07/19 08:56 Lopressor PO 50 mg BID SARAVANAN Administration Mometasone Furoate/Formoterol Fumar 1 puff 06/02/19 18:30 06/07/19 08:46 Dulera 200 Mcg/5 Mcg Inhaler INH 1 puff BID-RT SARAVANAN Administration Ondansetron HCl 4 mg 06/02/19 07:25 06/03/19 17:52 Zofran IVP 4 mg Q6H PRN Administration Nausea/Vomiting Pantoprazole Sodium 40 mg 06/06/19 09:00 06/07/19 08:57 Protonix PO 40 mg DAILY SARAVANAN Administration Polyethylene Glycol 17 gm 06/05/19 10:42 06/06/19 13:51 Miralax PO 17 gm DAILY PRN Administration Constipation Pregabalin 100 mg 06/02/19 21:00 06/06/19 22:07 Lyrica PO 100 mg HS SARAVANAN Administration Saccharomyces Boulardii 250 mg 06/05/19 09:00 06/07/19 08:56 Florastor PO 250 mg DAILY SARAVANAN Administration Sodium Chloride 10 ml 06/05/19 21:00 06/07/19 08:57 Flush - Normal Saline IVF 10 ml Q12HR SARAVANAN Administration Zolpidem Tartrate 5 mg 06/02/19 07:25 06/06/19 22:18 Ambien PO 5 mg HSPRN PRN Administration Insomnia - Exam Eye: PERRL Heart: RRR, no murmur, no gallops, no rubs, normal peripheral pulses Respiratory: CTAB, no wheezes, no rales, no ronchi, normal chest expansion, no tachypnea, normal percussion Gastrointestinal: soft (+ mild left lower quadrant tenderness, no rebound or guarding), non-distended, normal bowel sounds, no palpable masses, no hepatomegaly, no splenomegaly Extremities: no cyanosis, no clubbing, no edema Hosp A/P (1) UTI (urinary tract infection) Status: Acute (2) Abdominal pain Code(s): R10.9 - UNSPECIFIED ABDOMINAL PAIN Status: Acute (3) Osteoarthritis Code(s): M19.90 - UNSPECIFIED OSTEOARTHRITIS, UNSPECIFIED SITE Status: Acute (4) Dyslipidemia Code(s): E78.5 - HYPERLIPIDEMIA, UNSPECIFIED Status: Chronic (5) GERD (gastroesophageal reflux disease) Code(s): K21.9 - GASTRO-ESOPHAGEAL REFLUX DISEASE WITHOUT ESOPHAGITIS Status: Chronic (6) Hypertension Code(s): I10 - ESSENTIAL (PRIMARY) HYPERTENSION Status: Chronic - Plan * Abdominal pain- ? etiology- she has not had a bowel movement in 3 days- will try a fleet's enema * UTI- urine culture is growing ESBL E. Coli.- continue Meropenem * HTN- blood pressure is stable * OA- stable
[2019-06-07] MEDS ORDERED: Fleet Enema 133 ML BOT PR SCH (14:45)
[2019-06-07] MEDS: Polyethylene Glycol 3350 17 GM Packet PO PRN (15:01)
[2019-06-07] MEDS: Pregabalin 50 MG CAP PO SCH (21:47)
[2019-06-07] MEDS: Zolpidem Tartrate 5 MG TAB PO PRN (21:47)
[2019-06-07] MEDS: Lisinopril 2.5 MG TAB PO SCH (21:47)
[2019-06-07] MEDS: Melatonin 3 MG TAB PO PRN (21:47)
[2019-06-07] MEDS: Atorvastatin Calcium 20 MG TAB PO SCH (21:47)
[2019-06-07] MEDS: Acetaminophen 325 MG TAB PO PRN (21:47)
--- NOTE | 2019-06-08 00:02 | CON ---
DATE OF CONSULTATION: 06/07/2019 REASON FOR CONSULTATION: Recurrent UTIs with a resistant pathogen. HISTORY OF PRESENT ILLNESS: A 59-year-old, who has a history of episodes of abdominal pain and nausea, vomiting, which had been ascribed in the past to excessive intake of cannabinoid products with hyperemesis. Also, she has had pretty much what she describes as monthly episodes of UTI. When I inquired about those symptoms that she presents, that is defined as UTI diagnosis. She reports the nausea, vomiting, and the hot flashes, although she does not have documented fever. Apparently, the maximum temperature she has had is 99.3. Nonetheless, she has had visits with one of the local urologists. In the past, though she has seen Dr. Perea, she subsequently switched her care to Dr. Pradhan. Apparently has had cystoscopies and has been prescribed prophylactic antimicrobial therapy and pretty much monthly oral antimicrobials for treatment of these symptoms. Sometimes, she will have dysuria, but for the most part she does not have any dysuria associated with the symptoms, just what she describes as hot flashes and the hyperemesis. She has had an abdomen and pelvis CT done recently just a few days ago and no abnormalities were noted. She has severe degenerative joint disease, particularly in the hips, which have impeded significantly her mobility. This time, she presents with again the symptoms of abdominal tenderness, vomiting, intermittent substernal chest pain. No headaches. No sore throat, odynophagia, or dysphagia. No dyspnea. She is constipated for about a year now, has had an enema recently administered to her by one of the nurses in the unit. No skin disorder. No neurological symptoms. PAST MEDICAL HISTORY: Hyperlipidemia, hypertension, coronary artery disease, recurrent episodes of vomiting, which have in the past been ascribed to excessive use of cannabinoids, chronic constipation, and recurrent UTIs, which manifest with hot flashes and vomiting. She does not have dysuria very often. History of spinal surgery in the past. SOCIAL HISTORY: Uses marijuana intermittently, but has been cutting down on it. Smokes 1 or 2 cigarettes a day. No alcoholic beverage use. No other drug use. ALLERGIES: NONE. MEDICATIONS: 1. Tramadol. 2. Magnesium. 3. Glucosamine. 4. Milex. 5. Cranberry. 6. Omeprazole. 7. Famotidine. 8. Probiotic. 9. Fish oil. 10. Aspirin liquid. 11. Lyrica. 12. Atorvastatin. 13. Lisinopril. 14. Inhalers. 15. Montelukast. 16. Metoprolol. 17. Ranexa. FAMILY HISTORY: Noncontributory. PHYSICAL EXAMINATION: VITAL SIGNS: T-max 98.4, blood pressure 103/69, pulse 90, respirations 20, O2 saturation 95%. SKIN: Was okay. No lymphadenopathy. She has a peripheral IV access. HEENT: Ocular movements conjugate. Oral cavity was not remarkable. NECK: Supple. LUNGS: Symmetric clear breath sounds. HEART: S1 and S2. Regular rate. No S3 or S4. ABDOMEN: Soft, not distended or tender. No bladder distention. VAGINA: Vaginal exam was normal except for vaginal atrophy. EXTREMITIES: She moves extremities equally. She has marked limitation of range of motion of the hips. I cannot abduct the hips more than 40 degrees each side or 60 degrees. LABORATORY DATA: Urinalysis from the with 0 to 3 wbc's and from the , greater than 50 wbc's. White cell count is 8.2 and 7.8, hemoglobin 13, platelets 388 with 77% neutrophils. Creatinine 0.61. Liver profile normal. Albumin 4.3. Microbiology with E coli greater than 100,000 CFUs with a broad resistance profile. From May 28, there was Pseudomonas aeruginosa and E coli as well, the same profile as the current E coli. In December, she had an E coli, which was broadly susceptible, and in 2017, more resistant pattern, and then it goes on with the same pattern with alternately sensitive and highly resistant E coli strains, this goes back to 2012. IMAGING STUDIES: Include what we described. There was a chest x-ray as well with no cardiopulmonary process. ASSESSMENT: 1. Cannabinoid use with hyperemesis. 2. Hot flashes. 3. Urinary symptoms, which are infrequent most of the time. The explanation for the hot flashes and vomiting is the urinary tract infection, but this is questionable. Now she presents again with the same similar symptoms. She does have 2 urinalysis within the short period of time. One of them was with almost no WBCs. The second one just 2 days later with more than 50 WBCs per high-power field. She has this multiple isolates of E coli over the years and there was evidence of atrophic vaginitis. DISCUSSION: It is not clear that these symptoms the patient presents are truly associated with the urinalysis abnormality. It is possible that she has asymptomatic bacteriuria with the vomiting and hot flashes unrelated to the urinalysis findings. At the moment, I would check her postvoid residual to make sure she is emptying her bladder properly and try topical estrogen preparations as a preventive measure to decrease the risk of bacteriuria. I would also try to manage her emesis without necessarily administering antimicrobials and see what the results would be since again we may be treating a finding that has no relationship with the patient's symptoms. Job ID: [id number] [facility]
[2019-06-08] MEDS: Acetaminophen 325 MG TAB PO PRN (06:12)
[2019-06-08] MEDS: MEROPENEM 1 GM/50 ML 1 GM in Premix Bag 1 BAG IVPB SCH ×2 (06:13→14:36)
[2019-06-08] MEDS: Mometasone/Formoterol 120 PUFF INHALER INH SCH (06:54)
[2019-06-08] MEDS: Aspirin 81 mg Enteric Coated Tablet PO SCH (10:00)
[2019-06-08] MEDS: Metoprolol Tartrate 50 MG TAB PO SCH (10:00)
[2019-06-08] MEDS: Fish Oil 1,000 MG CAP PO SCH (10:00)
[2019-06-08] MEDS: Enoxaparin Sodium 40 MG/0.4 ML SYRINGE SC SCH (10:00)
[2019-06-08] MEDS: Saccharomyces boulardii 250 MG CAP PO SCH (10:00)
[2019-06-08 12:15] VITALS: BP 124/59; TEMP 97.8
[2019-06-08] MEDS: Polyethylene Glycol 3350 17 GM Packet PO PRN (14:36)
--- NOTE | 2019-06-08 15:03 | PDOC.HOSPP ---
- Subjective Encounter Date: 06/08/19 Encounter Time: 15:01 Subjective: Ms. Nassar was seen today in follow-up of abdominal pain. She says this has essentially resolved. No new complaints. - Objective Vital Signs & Weight: Vital Signs (12 hours) Temp Pulse Resp BP BP Pulse Ox 06/08/19 11:44 97.8 F 88 16 124/59 L 96 06/08/19 07:34 98.6 F 83 14 101/50 L 96 06/08/19 03:53 88 16 108/55 L 97 Weight Weight 139 lb 11.2 oz I&O: 06/07/19 06/08/19 06/09/19 06:59 06:59 06:59 Intake Total 1080 600 480 Output Total 550 Balance 530 600 480 Result Diagrams: 06/03/19 05:04 06/04/19 04:58 Hospitalist ROS - Medication Medications: Active Medications Generic Name Dose Route Start Last Admin Trade Name Freq PRN Reason Stop Dose Admin Acetaminophen 650 mg 06/02/19 19:41 06/08/19 06:12 Tylenol PO 650 mg Q4H PRN Administration Headache/Fever or Pain Alprazolam 0.25 mg 06/03/19 18:17 06/07/19 21:47 Xanax PO 0.25 mg QIDPRN PRN Administration Anxiety Aspirin 81 mg 06/04/19 09:00 06/08/19 10:00 Ecotrin PO 81 mg DAILY SARAVANAN Administration Atorvastatin Calcium 20 mg 06/02/19 21:00 06/07/19 21:47 Lipitor PO 20 mg HS SARAVANAN Administration Bisacodyl 10 mg 06/05/19 10:57 06/05/19 12:15 Dulcolax MS 10 mg DAILYPRN PRN Administration Constipation Diphenhydramine HCl 25 mg 06/03/19 18:07 06/03/19 21:24 Benadryl IVP 25 mg Q6H PRN Administration GI Cramping Enoxaparin Sodium 40 mg 06/02/19 09:00 06/08/19 10:00 Lovenox SC 40 mg 0900 SARAVANAN Administration Fish Oil 1,000 mg 06/02/19 09:00 06/08/19 10:00 Fish Oil PO 1,000 mg DAILY SARAVANAN Administration Meropenem 1 gm/ Device 50 mls @ 100 mls/hr 06/06/19 22:00 06/08/19 14:36 IVPB 50 mls Q8HR SARAVANAN Administration Lisinopril 5 mg 06/02/19 21:00 06/07/19 21:47 Zestril PO 5 mg HS SARAVANAN Administration Melatonin 3 mg 06/04/19 20:21 06/07/19 21:47 Melatonin PO 3 mg HS PRN Administration Insomnia Metoprolol Tartrate 50 mg 06/02/19 09:00 06/08/19 10:00 Lopressor PO 50 mg BID SARAVANAN Administration Mometasone Furoate/Formoterol Fumar 1 puff 06/02/19 18:30 06/08/19 06:54 Dulera 200 Mcg/5 Mcg Inhaler INH 1 puff BID-RT SARAVANAN Administration Ondansetron HCl 4 mg 06/02/19 07:25 06/03/19 17:52 Zofran IVP 4 mg Q6H PRN Administration Nausea/Vomiting Pantoprazole Sodium 40 mg 06/06/19 09:00 06/08/19 10:00 Protonix PO 40 mg DAILY SARAVANAN Administration Polyethylene Glycol 17 gm 06/05/19 10:42 06/08/19 14:36 Miralax PO 17 gm DAILY PRN Administration Constipation Pregabalin 100 mg 06/02/19 21:00 06/07/19 21:47 Lyrica PO 100 mg HS SARAVANAN Administration Saccharomyces Boulardii 250 mg 06/05/19 09:00 06/08/19 10:00 Florastor PO 250 mg DAILY SARAVANAN Administration Sodium Chloride 10 ml 06/05/19 21:00 06/08/19 10:01 Flush - Normal Saline IVF 10 ml Q12HR SARAVANAN Administration Zolpidem Tartrate 5 mg 06/02/19 07:25 06/07/19 21:47 Ambien PO 5 mg HSPRN PRN Administration Insomnia - Exam Eye: PERRL Heart: RRR, no murmur, no gallops, no rubs, normal peripheral pulses Respiratory: CTAB, no wheezes, no rales, no ronchi, normal chest expansion, no tachypnea, normal percussion Gastrointestinal: soft, non-tender, non-distended, normal bowel sounds, no palpable masses, no hepatomegaly, no splenomegaly Extremities: no cyanosis, no clubbing, no edema Hosp A/P (1) UTI (urinary tract infection) Status: Acute (2) Abdominal pain Code(s): R10.9 - UNSPECIFIED ABDOMINAL PAIN Status: Acute (3) Osteoarthritis Code(s): M19.90 - UNSPECIFIED OSTEOARTHRITIS, UNSPECIFIED SITE Status: Acute (4) Dyslipidemia Code(s): E78.5 - HYPERLIPIDEMIA, UNSPECIFIED Status: Chronic (5) GERD (gastroesophageal reflux disease) Code(s): K21.9 - GASTRO-ESOPHAGEAL REFLUX DISEASE WITHOUT ESOPHAGITIS Status: Chronic (6) Hypertension Code(s): I10 - ESSENTIAL (PRIMARY) HYPERTENSION Status: Chronic - Plan * Abdominal pain- resolved * UTI- likely asymptomatic bacteruria * Will check to post void residual and home this evening
--- NOTE | 2019-06-09 02:07 | DIS ---
DATE OF ADMISSION: 06/04/2019 DATE OF DISCHARGE: 06/08/2019 PRIMARY CARE PHYSICIAN: Dr. Fowler. DISCHARGE DISPOSITION: Home. PRIMARY DISCHARGE DIAGNOSES: 1. Abdominal pain, etiology is known. 2. Asymptomatic bacteriuria with Escherichia coli. 3. History of coronary artery disease. 4. Asthma. 5. History of marijuana abuse. 6. Hypertension. 7. Dyslipidemia. DISCHARGE MEDICATIONS: Include: 1. Tramadol 50 mg q.6h as needed. 2. Ventolin inhaler 1 puff q.4 hours as needed. Ranexa 500 mg p.o. b.i.d. 3. Lyrica 100 mg at bedtime. 4. Omeprazole 20 mg at bedtime. 5. Wanda-3 fish oil 1 capsule daily. 6. Singulair 10 mg daily. 7. Lopressor 50 mg twice daily. 8. Magnesium 250 mg daily. 9. Lisinopril 5 mg at bedtime. 10. Breo Ellipta 1 puff daily. 11. Famotidine 20 mg daily. 12. Cranberry ascorbic acid 1 tablet daily. 13. Atorvastatin 20 mg at bedtime. 14. Aspirin 81 mg daily. 15. Alprazolam 0.5 mg p.o. daily. 16. Albuterol nebs q.8h as needed. IMAGING: In the hospital stay, the patient had a CT scan of the abdomen and pelvis, which was negative for any acute process. The patient also had a stress test showing normal wall motion. TID was 0.82. EF was estimated at 72%. CODE STATUS: Full code. ALLERGIES: NO KNOWN DRUG ALLERGIES. HOSPITAL COURSE: Ms. Nassar is a pleasant 59-year-old female who presented to the emergency room with complaints of nausea and vomiting. She was having difficulty keeping anything down. She was placed in the hospital due to dehydration. She was placed on IV fluids. CT scan of the abdomen was essentially negative. There was concern that this could possibly be a cardiac etiology for symptoms and therefore stress test was done. This was also negative. She was found to have pyuria and bacteriuria and was not started on antibiotics. The urine culture grew E. coli, which had an extended beta lactamase producing E. coli. For this reason, ID was consulted and it was felt that this was unlikely the cause of her symptoms and was unlikely to be an active urinary tract infection. Therefore, all antibiotics are being discontinued. She says that she sees a urologist Dr. Pradhan in the outpatient setting and has had a complete urologic workup in the past, which has been negative. It is unclear why she has persistent bacteriuria. We will be checking a postvoid residual prior to her discharge and also placing her on vaginal Estrace cream. Job ID: [id number]
== END 2019-06-08 16:42 | disposition home or self-care (01) | DRG 392 ==
LOC: ERS 19:25 → 2SW 23:02 → OBSVTOIN 06-04 12:37
PROVIDERS: ADMIT Internal Medicine; ATTEND Internal Medicine
DX: R10.9 Unspecified abdominal pain (principal); B96.20 Unspecified Escherichia coli [E. coli] as the cause of diseases classified elsewhere; I25.10 Atherosclerotic heart disease of native coronary artery without angina pectoris; J45.909 Unspecified asthma, uncomplicated; F12.10 Cannabis abuse, uncomplicated; I10 Essential (primary) hypertension; F41.9 Anxiety disorder, unspecified; G47.33 Obstructive sleep apnea (adult) (pediatric); M19.90 Unspecified osteoarthritis, unspecified site; K59.09 Other constipation; K21.9 Gastro-esophageal reflux disease without esophagitis; E78.5 Hyperlipidemia, unspecified; E86.0 Dehydration; Z90.49 Acquired absence of other specified parts of digestive tract
CPT/HCPCS: 36415; 71045; 74177; 78452; 80048; 80053; 80069; 80306; 81001; 81003; 81015; 82550; 82553; 83605; 83690; 83735; 84484; 85025; 87077; 87086; 87186; 93005; 93017; 94760; 96361; 96374; A9500; C9113; J0696; J1200; J1650; J2185; J2405; J2785; J3475; J3480; J3490; Q0163; Q9967; S0028

== ENCOUNTER 2020-01-29 10:27 | Outpatient (CLI) | payer MEDICARE ==
--- NOTE | 2020-01-29 13:55 | MRI ---
MRI LUMBAR SPINE WITH AND WITHOUT CONTRAST: DATE: 01/29/2020 HISTORY: 60-year-old female with low back pain and bilateral lumbar radiculopathy COMPARISON: 05/01/2017 TECHNIQUE: Multiple sequences obtained in axial and sagittal planes, pre and post IV injection of gadolinium-bas ed contrast agent. FINDINGS: For the purposes of this report, it will be assumed that there are 5 lumbar-type vertebrae. Vertebral body heights are maintained. There are new bilateral pedicle screws at L4, L5, and S1. There are new midline laminectomy defects from L3-4 through L5-S1. Very close to the posterior surfac e of the thecal sac, there is a new postoperative fluid collection within the laminectomy defects, from L3-4 through L5-S1. The collection is thin in the AP dimension: 0.4 x 2.5 x 2.5 cm. There is pos toperative enhancing scar tissue or granulation tissue throughout the laminectomy defects, with T2 hyperintense signal which is either postsurgical scar tissue or granulation tissue, throughout the po sterior perivertebral space throughout the levels of surgery. Included only on the sagittal images high-grade degenerative disc disease with severe disc space narr owing and disc herniations or disc-osteophyte complexes protruding into the anterior aspect of the spinal canal throughout the lower thoracic spine from T9-10 through T12-L1. T12-L1:Severe disc space narrowing, worse than before. Diffuse disc bulge. Slight retrolisthesis of T 12 on L1. Conus medullaris terminates at this level. Mild central spinal canal stenosis. No right neural foraminal stenosis. Mild left neural foraminal stenosis. L1-2:Disc space maintained. Mild disc bulge. Right paracentral superimposed small focal disc protrusi on with annular fissure, is slightly smaller than before. Mild central spinal canal stenosis. No significant neural foraminal stenosis. L2-3:Disc space maintained. Mild disc bulge. No significant neural foraminal stenosis. Mild to modera te bilateral facet DJD. Mild central spinal canal stenosis. L3-4:Disc space maintained. Similar in appearance to prior study, diffuse disc bulge indents ventral aspect of thecal sac. Moderate to severe right neural foraminal stenosis is worse than before. Moderate left neural foraminal stenosis is worse than before. New bilateral facet joint effusions. Ne w laminectomy defect. Transverse diameter of the spinal canal is moderately narrowed, especially on the left side. AP dimension of the spinal canal is mildly narrow. Overall cross-sectional of the spin al canal and thecal sac is larger than it was previously, mild central spinal canal stenosis. L4-5:In addition to the bilateral pedicle screws, there is interbody cage material in the disc space. Grade 1 anterolisthesis of L4 on L5 appears similar or minimally worse now. Neural foramina are difficult to evaluate because of magnetic susceptibility artifact from hardware. The degree of neural foraminal stenosis is at least mild, and possibly moderate, perhaps similar to previous. The previously demonstrated severe central spinal canal stenosis has been relieved by the laminectomy and resection of ligamentum flavum and medial portions of facet joints. Despite this, because of the spondylolisthesis, there is residual mild to moderate central spinal canal stenosis. There is enhanci ng postsurgical scar tissue in the lateral recesses bilaterally, surrounding the bilateral L5 nerve roots. L5-S1:Severe bilateral facet DJD. Developmentally small caliber spinal canal exacerbated by grade 1 a nterolisthesis of L5 on S1. Moderate central spinal canal stenosis mostly on developmental basis. Enhancing scar tissue surrounding bilateral S1 nerve roots in the bilateral lateral recesses. Interva l improvement in the previously demonstrated high-grade central spinal canal stenosis and lateral recess stenosis bilaterally after laminectomy. New interbody cage material in the disc space. Difficu lt to evaluate degree of neural foraminal stenosis due to magnetic susceptibility artifact from hardware. IMPRESSION: 1) status post posterior lumbar interbody fusion with hardware, and midline laminectomies, from L4 th rough L5-S1, resulting in improvement of the high-grade central spinal canal stenosis previously demonstrated. 2) enhancing postsurgical scar tissue or granulation tissue in the lateral recesses bilaterally at L4 -5 and L5-S1 surrounding the bilateral L5 and S1 nerve roots. 3) grade 1 spondylolisthesis at L4-5 and L5-S1 is unchanged. 4) high-grade lower level Lumbar spondylosis 5) high-grade lower level thoracic spondylosis.
== END 2020-01-29 10:28 | disposition home or self-care (01) ==
LOC: SCSMRI 10:27
PROVIDERS: ATTEND Family Medicine
DX: M47.26 Other spondylosis with radiculopathy, lumbar region (principal); M43.17 Spondylolisthesis, lumbosacral region; M43.16 Spondylolisthesis, lumbar region; M47.817 Spondylosis without myelopathy or radiculopathy, lumbosacral region; M48.061 Spinal stenosis, lumbar region without neurogenic claudication; M48.07 Spinal stenosis, lumbosacral region; Z98.1 Arthrodesis status; Z98.890 Other specified postprocedural states
CPT/HCPCS: 72158; 82565

== ENCOUNTER 2020-02-08 10:19 | Outpatient (CLI) | payer MEDICARE, MEDICAID ==
--- NOTE | 2020-02-08 11:37 | MMO ---
Bilateral MAMMO Bilat Screen [facility]. CLINICAL HISTORY: Patient is 60 years old and is seen for screening. The patient has no family history of breast cancer. The patient has no personal history of cancer. The patient has a history of left needle biopsy in 1984 and 1988 - benign and left Excisional Biopsy in 1984 - benign - removed cyst. VIEWS: The views performed were: bilateral craniocaudal with tomosynthesis and bilateral mediolateral oblique with tomosynthesis. FILMS COMPARED: The present examination has been compared to prior imaging studies performed at [facility] on 08/29/2015, 08/30/2016, 09/04/2017 and 01/09/2019. This study has been interpreted with the assistance of computer-aided detection. MAMMOGRAM FINDINGS: There are scattered fibroglandular densities. Benign calcifications are noted bilaterally. There are no suspicious masses, suspicious calcifications, or new areas of architectural distortion. IMPRESSION: THERE IS NO MAMMOGRAPHIC EVIDENCE OF MALIGNANCY. A ROUTINE FOLLOW-UP MAMMOGRAM IN 1 YEAR IS RECOMMENDED. THE RESULTS OF THIS EXAM WERE SENT TO THE PATIENT. ACR BI-RADS Category 2 - Benign finding MAMMOGRAPHY NOTE: 1. A negative mammogram report should not delay a biopsy if a dominant of clinically suspicious mass is present. 2. Approximately 10% to 15% of breast cancers are not detected by mammography. 3. Adenosis and dense breasts may obscure an underlying neoplasm. Reported by: RENÉ HOFFMAN MD Electonically Signed: [id number]
== END 2020-02-08 10:20 | disposition home or self-care (01) ==
LOC: BICMAMMO 10:19
PROVIDERS: ATTEND Family Medicine
DX: Z12.31 Encounter for screening mammogram for malignant neoplasm of breast (principal); Z91.89 Other specified personal risk factors, not elsewhere classified
CPT/HCPCS: 77063; 77067

== ENCOUNTER 2021-10-24 12:31 | Outpatient (CLI) | payer MEDICARE | END 2021-10-24 12:32 | disposition home or self-care (01) | LOC: BICMAMMO 12:31 | PROVIDERS: ATTEND Family Medicine | DX: N63.10 Unspecified lump in the right breast, unspecified quadrant (principal) | CPT/HCPCS: 76642; 77066; G0279 ==